=== PATIENT | female | born 1995 | race Caucasian/White ===

== ENCOUNTER 2020-01-01 13:34 | Emergency (ER) | payer OTHER ==
--- OUTSIDE RECORDS SUMMARY | 2020-01-01 14:15 | XMS REPORT | Summary of Care ---
:[address] [facility] Address [address] [place] [id number] Care Team Providers Name Role Phone Pcp, Patient Does Not Have A Primary Care Provider +1-000-00 0-0000 Reason for Visit Reason Comments ULTRASOUND (Routine) Status Reason Specialty Diagnoses / Referred By Referred To Procedures Contact Contact Closed Maternal Diagnoses Normal in third trimester 32 weeks gestation of Verito Castaneda MD Medicine Procedures CONSULT MATERNAL MEDICINE ULTRASOUND Preferred Location: [address] 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 0 A ctive calc,iron,folic ( VITAMIN ORAL) documented as of this encounter (statuses as of 10/18/2019) Active Problems Problem Noted Date Normal in second trimester 09/03/2019 History of loop electrical excision procedure (LEEP) 0 09/03/2019 32 weeks gestation of 09/03/2019 Estimated Date of Delivery Comments Yes 11/27/2019 Based on Patient Rep orted documented as of this encounter (statuses as of 10/18/2019) Immunizations Name Administration Dates Next Due TDAP 09/03/2019 09/02/2029 documented as of this encounter Social History Tobacco Use Types Packs/Day Years Used Date Former Smoker Quit: 09/03/19 15 Smokeless Tobacco: Never Used Alcohol Use Drinks/Week oz/Week Comments Not Currently Estimated Date of Delivery Comments Yes 11/27/2019 Based on Patient Rep orted Sex Assigned at Date Recorded Not on file COVID-19 Exposure Response Date Recorded In the last month, have you been in contact with No / Unsure 10/09/2019 9:12 AM CDT someone who was confirmed or suspected to have Coronavirus / COVID-19? documented as of this encounter Last Filed Vital Signs Not on filedocumented in this encounter Plan of Treatment Date Type Specialty Care Team Description 10/19/2019 Routine Obstetrics & Sherry Calderon, Visit Gynecology EB [address] [place] [phone] Health Maintenance Due Date Last Done Comments VARICELLA VACCINES (1 of 2 - 1997 2-dose childhood series) MENINGOCOCCAL B VACCINES (1 of 2 - 2006 Risk Bexsero 2-dose series) HPV VACCINES (1 - 2-dose series) 07/11/2007 Depression Screening 2008 CHLAMYDIA SCREENING 2012 PAP SMEAR 2017 INFLUENZA VACCINE (#1) 2019 12/13/2017 DTaP,Tdap,and Td Vaccines (2 - Td) 09/02/2029 09/03/2019 PNEUMOCOCCAL 0-64 YEARS COMBINED Aged Out No longer eligible based on SERIES patient's age to complete this topic documented as of this encounter Procedures Procedure Name Priority Date/Time Associated Diagnosis Comme nts SECOND AND THIRD Routine 10/18/2019 3:34 PM TRIMESTER ULTRASOUND CDT documented in this encounter Results SECOND AND THIRD TRIMESTER ULTRASOUND (10/18/2019 3:34 PM CDT) Specimen documented in this encounter Visit Diagnoses Diagnosis Supervision of high risk in se cond trimester Unspecified high-risk Encounter for screening for ma lformation using ultrasound documented in this encounter documented as of this encounter
--- OUTSIDE RECORDS SUMMARY | 2020-01-01 14:15 | XMS REPORT | Summary of Care ---
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 [facility] Sherry Calderon PA-C [address] [facility] [address] [place] [phone] Abnormal maternal Professional Office 2, [facility] Lab glucose tolerance, Building Phlebotomy [facility] Lab Professional Office Building [address] [facility] [address] [place] [phone] Allergies Active Allergy Reactions Severity Noted Date Comments Sulfa (Sulfonamide Antibiotics) Rash 0 documented as of this encounter (statuses as of 10/09/2019) Medications Medication Sig Dispensed Refills Start Date End Date Status vit Take by mouth. 0 A ctive calc,iron,folic ( VITAMIN ORAL) documented as of this encounter (statuses as of 10/09/2019) Active Problems Problem Noted Date Normal in second trimester 09/03/2019 History of loop electrical excision procedure (LEEP) 0 09/03/2019 32 weeks gestation of 09/03/2019 Estimated Date of Delivery Comments Yes 11/27/2019 Based on Patient Rep orted documented as of this encounter (statuses as of 10/09/2019) Immunizations Name Administration Dates Next Due TDAP [...] Signs Not on filedocumented in this encounter Nursing Notes Isela Huntley - 10/09/2019 8:45 AM CDT Venipuncture collection performed by clean technique on the both anticubitus. Total of 4 attempts were made. Slight pressure and a bandage/dressing were applied to the site(s). The patient experienced no complications. The following specimens were processed according to instructions and sent to [facility] laboratories per lab order on 10/09/19: LT BLUE SST 1 RED LAV PPT DK GREEN (LiHep) DK GREEN (SodH) PRIDE 3 DK BLUE (K2) DK BLUE (S) ACD Blood Culture NIPT/NTD documented in this encounter Plan of Treatment Date Type Specialty Care Team Description 10/19/2019 Routine Obstetrics & Sherry Calderon, Visit Gynecology EB [address] [place] [phone] Name Type Priority Associated Diagnoses Date/Ti me 3 HR GLUCOSE TOLERANCE LAB Routine Abnormal maternal 10/09/2019 9:17 AM CDT PANEL glucose tolerance, antepartum Name Type Priority Associated Diagnoses Order S chedule 2 HR GLUCOSE TOLERANCE LAB Routine Abnormal maternal glucose Ordered: 10/09/2019 TEST tolerance, antepartum 3 HR GLUCOSE TOLERANCE LAB Routine Abnormal maternal glucose Ordered: 10/09/2019 TEST tolerance, antepartum Health Maintenance Due Date Last Done Comments VARICELLA VACCINES (1 of 2 - 1997 2-dose childhood series) MENINGOCOCCAL B VACCINES (1 of - 2006 Risk Bexsero 2-dose series) HPV [...] Name Priority Date/Time Associated Diagnosis Comme nts 1 HR GLUCOSE Routine 10/09/2019 10:15 AM Abnormal maternal Res ults for this TOLERANCE TEST CDT glucose tolerance, procedu re are in antepartum the results section. GLUCOSE FASTING Routine 10/09/2019 9:17 AM Abnormal maternal Results for this CDT glucose tolerance, procedure are in antepartum the results section. documented in this encounter Results 1 HR GLUCOSE TOLERANCE TEST (10/09/2019 10:15 AM CDT) Pathologist Sig nature GLUC 1 HR 150 120 - 170 mg/dL [facility] Specimen Blood Performing Organization Address [facility] [place] Phone Number [facility] CLIA: [id number] [place] [address] GLUCOSE FASTING (10/09/2019 9:17 AM CDT) Pathologist Sig nature GLU FASTNG 78 70 - 110 mg/dL [facility] Specimen Blood Performing Organization Address [facility] [place] Phone Number [facility] CLIA: [id number] [place] [address] documented in this encounter Visit Diagnoses Diagnosis Abnormal maternal glucose tolerance, ant epartum documented in this encounter documented as of this encounter
--- OUTSIDE RECORDS SUMMARY | 2020-01-01 14:15 | XMS REPORT | Summary of Care ---
:1995 Author Organization [facility] Address [address] [place] [address] Care Team Providers Name Role Phone Pcp, Patient Does Not Have A Primary Care Provider +1-000-00 0-0000 Reason for Referral (Routine) Status Reason Specialty Diagnoses / Referred By Referred To Procedures Contact Contact New Request Maternal Diagnoses Normal in third trimester 32 weeks gestation of Verito Castaneda, Medicine Procedures CONSULT MATERNAL MEDICINE ULTRASOUND Preferred Location: Angela PLATT [address] [place] [address] [address] Reason for Visit Reason Comments ROUTINE VISIT Encounter Details Date Type Department Care Team Description 10/02/2019 Routine [facility] Women's Verito Castaneda am, MD Normal in third trimester (Marita sofi Dx); Visit Healthcare- [address] [place] [address] 32 weeks g estation of Angela Juares [facility] [address] [place] [phone] Allergies Active Allergy Reactions Severity Noted Date Comments Sulfa (Sulfonamide Antibiotics) Rash 0 documented as of this encounter (statuses as of 10/04/2019) Medications Medication Sig Dispensed Refills Start Date End Date Status vit Take by mouth. 0 A ctive calc,iron,folic ( VITAMIN ORAL) documented as of this encounter (statuses as of 10/04/2019) Active Problems Problem Noted Date Normal in second trimester 09/03/2019 History of loop electrical excision procedure (LEEP) 0 09/03/2019 32 weeks gestation of 09/03/2019 Estimated Date of Delivery Comments Yes 11/27/2019 Based on Patient Rep orted documented as of this encounter (statuses as of 10/04/2019) Immunizations Name Administration Dates Next Due TDAP [...] been in contact with No / Unsure 10/02/2019 1:02 PM CDT someone who was confirmed or suspected to have Coronavirus / COVID-19? documented as of this encounter Last Filed Vital Signs Vital Sign Reading Time Taken Comments Blood Pressure 95/67 10/02/2019 1:18 PM CDT Pulse 89 10/02/2019 1:18 PM CDT Temperature 36.8 C (98.2 F) 10/02/2019 1:18 PM CDT Respiratory Rate 18 10/02/2019 1:18 PM CDT Oxygen Saturation - - Inhaled Oxygen Concentration - - Weight 64.9 kg (143 lb) 10/02/2019 1:18 PM CDT Height 160 cm (5' 3") 10/02/2019 1:18 PM CDT Body Mass Index 25.33 10/02/2019 1:18 PM CDT documented in this encounter Progress Notes Verito Castaneda MD - 10/02/2019 1:15 PM CDT Chief complaint: Chief Complaint Patient presents with ROUTINE VISIT HPI Isela Ram is a 24 year old female @ 32w2d Denies contractions, vaginal bleeding, LOF, dysuria, or PIH symptoms. + active FM. Histories OB History Para Term AB Living 2 1 1 1 SAB TAB Ectopic Multiple Live Births 1 # Outcome Date GA Lbr Neal/2nd Weight Sex Delivery Anes PTL Lv 2 Current 1 Term 05/16/18 40w6d 7 lb 14 oz (3.572 kg) F NORMAL SPONT EPI N GIANCARLO Past Medical History: Diagnosis Date History of loop electrical excision procedure (LEEP) 06/2018 History of ovarian cyst Hypoglycemia Pap smear abnormality of cervix 2019 hx of 2019 ; Colpo with LEEP Family History Problem Relation Age of Onset Hypertension Father Diabetes Father Arthritis NoFHx Asthma NoFHx defects NoFHx Breast Cancer NoFHx Colon Cancer NoFHx Ovarian Cancer NoFHx Uterine Cancer NoFHx Cancer NoFHx Depression NoFHx Genetic NoFHx Heart NoFHx High cholesterol NoFHx Mental retardation NoFHx Neurological NoFHx Osteoporosis NoFHx Psychiatry NoFHx Other - see comments NoFHx Family Status Relation Name Status Mo Alive Fa Alive NoFHx (Not Specified) Past Surgical History: Procedure Laterality Date COLPOSCOPY,CERVIX W/ADJ VAG,W/LOOP BX 06/2018 OVARIAN CYSTECTOMY 2012 TOOTH EXTRACTION 2019 wisdom teeth Social History Socioeconomic History Marital status: Spouse name: Not on file Number of children: Not on file Years of education: Not on file Highest education level: Not on file 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 Social Needs Financial resource strain: Not on file Food insecurity Worry: Not on file Inability: Not on file Transportation needs Medical: Not on file Non-medical: Not on file Tobacco Use Smoking status: Former Smoker Quit date: 09/02/2014 Years since quittin.0 Smokeless tobacco: Never Used Substance and Sexual Activity Alcohol use: Not Currently Drug use: Never Comment: No history of substence abuse of any kind Sexual activity: Yes Partners: Male control/protection: None Lifestyle Physical activity Days per week: Not on file Minutes per session: Not on file Stress: Not on file Relationships Social connections Talks on phone: Not on file Gets together: Not on file Attends christianity service: Not on file Active member of club or organization: Not on file Attends meetings of clubs or organizations: Not on file Relationship status: Not on file Intimate partner violence Fear of current or ex partner: Not on file Emotionally abused: Not on file Physically abused: Not on file Forced sexual activity: Not on file Other Topics Concern Not on file Social History Narrative No domestic or physical violence within the home Living with Sister; her is currently deployed in [place] Social History Substance and Sexual Activity Sexual Activity Yes Partners: Male control/protection: None Labs No new labs Radiology No new radiology. Allergies Isela is allergic to sulfa (sulfonamide antibiotics). Medications Isela has a current medication list which includes the following prescription(s): vit calc,iron,folic. Review of Systems Constitutional: Negative for chills, fatigue and fever. HENT: Negative for congestion, rhinorrhea, sneezing and sore throat. Eyes: Negative for photophobia and visual disturbance. Respiratory: Negative for cough, chest tightness, shortness of breath and wheezing. Cardiovascular: Negative for chest pain and palpitations. Gastrointestinal: Negative for abdominal distention, abdominal pain, constipation, diarrhea, nausea and vomiting. Genitourinary: Negative for dysuria, urgency, frequency, vaginal bleeding and vaginal discharge. Skin: Negative for rash. Neurological: Negative for syncope and headaches. Hematological: Does not bruise/bleed easily. BP 95/67 (BP Location: Left arm, Patient Position: Sitting, BP CUFF SIZE: Adult Medium) | Pulse 89| Temp 36.8 C (98.2 F) (Oral) | Resp 18 | Ht 5' 3" (1.6 m) | Wt 143 lb (64.9 kg) | LMP 02/28/2019 | BMI 25.33 kg/m Pregravid BMI: 22.33 Physical Exam Vitals reviewed. Constitutional: She is oriented to person, place, and time. She appears well- developed and well-nourished. Cardiovascular: Regular rate and rhythm. Pulmonary/Chest: Normal inspiratory effort. Abdominal: Abdomen is soft. No tenderness present. No hernia palpated or inspected. Neuro/Psychiatric: She has a normal mood and affect. She is oriented to person, place, and time. Skin: Skin normal. No rash present. Assessment/Plan See OB Summary Return to clinic in 2 weeks. Reviewed patient instructions and provided printed copy. Activity restrictions: As tolerated at 32w0d This visit did not involve counseling and coordination that comprised more than 50% of the visit time. Verito Castaneda MD 10/04/2019 1:04 PM documented in this encounter Miscellaneous Notes OB Summary Note - Verito Castaneda MD - 10/02/2019 1:15 PM CDTAge: 24 year old GA: 32w0d - Doing well - 1 hr abnormal: 3 hr gtt ordered - records reviewed and VIC 11/27/2019 - USG done on 2019: Single live intrauterine gestation at 20 w0d by maged EDD11/27/2019. The outflow tracts and diaphragm were not seen well. Other anatomy appeared normal. --> follow-up USG ordered - Desires elective induction at 39 wks Discussed about risks of failed induction that can lead to and risks associated with including pain, bleeding, infection, injury to surrounding organs, need for repeat with future pregnancies, risks of abnormal placentation with future pregnancies. Patient understands and desires to proceed with induction. Patient has been scheduled for induction on 11/22/2019 at 39 weeks unless clinically indicated otherwise. 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
--- OUTSIDE RECORDS SUMMARY | 2020-01-01 14:15 | XMS REPORT | Summary of Care ---
:1995 Author Organization [facility] - Health Address [address] [place] [address] Care Team Providers Name Role Phone Pcp, Patient Does Not Have A Primary Care Provider +1-000-00 0-0000 Encounter Details Date Type Department Care Team Description 11/02/2019 Orders Only [facility] Doctor Unassigned, No [address] [facility] [place] [address] [address] [place] [address] Allergies Active Allergy Reactions Severity Noted Date Comments Sulfa (Sulfonamide Antibiotics) Rash 0 documented as of this encounter (statuses as of 11/06/2019) Medications Medication Sig Dispensed Refills Start Date End Date Status vit Take by mouth. 0 A ctive calc,iron,folic ( VITAMIN ORAL) documented as of this encounter (statuses as of 11/06/2019) Active Problems Problem Noted Date Normal in third trimester 09/03/2019 History of loop electrical excision procedure (LEEP) 0 09/03/2019 36 weeks gestation of 09/03/2019 Estimated Date of Delivery Comments Yes 11/27/2019 Based on Patient Rep orted documented as of this encounter (statuses as of 11/06/2019) Immunizations Name Administration Dates Next Due TDAP [...] been in contact with No / Unsure 11/02/2019 3:46 PM CDT someone who was confirmed or suspected to have Coronavirus / COVID-19? 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 Phlebotomy 2, Ad[facility] Lab 11/08/2019 Routine Visit Obstetrics & Sherry Calderon, Gynecology EB Juares [address] [phone] Health Maintenance Due Date Last Done Comments VARICELLA VACCINES (1 of 2 - 1997 2-dose childhood series) MENINGOCOCCAL B VACCINES (1 of 2 - 2006 Risk Bexsero 2-dose series) HPV VACCINES (1 - 2-dose series) 07/11/2007 Depression Screening 2008 PAP SMEAR 2017 INFLUENZA VACCINE (#1) 2019 12/13/2017 CHLAMYDIA SCREENING 11/01/2020 11/02/2019 DTaP,Tdap,and Td Vaccines (2 - Td) 09/02/2029 09/03/2019 PNEUMOCOCCAL 0-64 YEARS COMBINED Aged Out No longer eligible based on SERIES patient's age to complete this topic documented as of this encounter Procedures Procedure Name Priority Date/Time Associated Diagnosis Comme nts DSU PRE-OP Routine 11/02/2019 12:01 AM CDT documented in this encounter Results Not on filedocumented in this encounter Insurance Payer Benefit Plan / Group Subscriber ID Effective Dates Phone Address Type [facility] [id number] 2019-Present documented as of this encounter
--- OUTSIDE RECORDS SUMMARY | 2020-01-01 14:15 | XMS REPORT | Summary of Care ---
:1995 Author Organization [facility] Address [address] [place] [id number] Care Team Providers Name Role Phone Pcp, Patient Does Not Have A Primary Care Provider +[id number] 0-0000 Reason for Visit Reason Comments ROUTINE VISIT Encounter Details Date Type Department Care Team Description 10/19/2019 Routine [facility] Women's Sherry Calderon, Normal in third trimester (Primary Dx); Visit Healthcare- PA-C 34 weeks gestation of ; [address] Malodorous urine [address] [facility], [address] [place] [id number] [phone] Allergies Active Allergy Reactions Severity Noted Date Comments Sulfa (Sulfonamide Antibiotics) Rash 0 documented as of this encounter (statuses as of 10/19/2019) Medications Medication Sig Dispensed Refills Start Date End Date Status vit Take by mouth. 0 A ctive calc,iron,folic ( VITAMIN ORAL) documented as of this encounter (statuses as of 10/19/2019) Active Problems Problem Noted Date Normal in second trimester 09/03/2019 History of loop electrical excision procedure (LEEP) 0 09/03/2019 32 weeks gestation of 09/03/2019 Estimated Date of Delivery Comments Yes 11/27/2019 Based on Patient Rep orted documented as of this encounter (statuses as of 10/19/2019) Immunizations Name Administration Dates Next Due TDAP [...] been in contact with No / Unsure 10/19/2019 12:45 PM CDT someone who was confirmed or suspected to have Coronavirus / COVID-19? documented as of this encounter Last Filed Vital Signs Vital Sign Reading Time Taken Comments Blood Pressure 108/69 10/19/2019 1:20 PM CDT Pulse 87 10/19/2019 1:20 PM CDT Temperature 36.6 C (97.8 F) 10/19/2019 1:20 PM CDT Respiratory Rate 18 10/19/2019 1:20 PM CDT Oxygen Saturation - - Inhaled Oxygen Concentration - - Weight 66 kg (145 lb 6.4 oz) 10/19/2019 1:20 PM CDT Height 160 cm (5' 3") 10/19/2019 1:20 PM CDT Body Mass Index 25.76 10/19/2019 1:20 PM CDT documented in this encounter Patient Instructions Patient InstructionsMoraima Da Silva RN - 10/19/2019 4:30 PM CDT Patient Education Premature Labor Premature labor ( labor) is when symptoms of labor occur before 37 weeks of . (This is 3 weeks before your due date.) Premature labor can lead to premature delivery. This means giving to your baby early. Babies need at least 37 weeks of for all the organs to develop normally. The earlier the delivery, the greater the risks to the baby. In most cases, the cause of premature labor is unknown. But certain factors may make the problem more likely. These include: History of premature labor with other pregnancies Smoking Alcohol or substance abuse Low pre- weight or weight gain during Short time period between pregnancies Being with twins, triplets, or more History of certain types of surgery on the cervix or uterus Having a short cervix Certain infections There are a number of other risk factors. Ask your healthcare provider to help you understand the risk factors specific to your case. Then find out what you can do to control or reduce them. Contractions are one of the main signs of premature labor. A contraction is different from cramping.It may feel painful and the belly (abdomen) may get hard. It can last from a few seconds to a few minutes. Some women may feel only a sense of pressure in the belly, thighs, rectum, or vagina. Some mayfeel only the hardening of the uterus without pain or pressure. Or there may be a constant pain in the lower back, which spreads forward toward the belly.Premature labor is often treated with medicines.A hospital stay may be needed. If labor doesn't progress and you and your baby are both healthy, you may be discharged to continue care at home. Home care Ask your provider any questions you have. Be certain you understand how to care for yourself at home. Also follow all recommendations given by your healthcare providers. Learn the signs of premature labor.Watch for these signs when you get home. Limit or restrict activities as advised. This may include stopping certain physical activities and cutting back hours at work. Avoid doing strenuous work as directed by your provider.Ask family and friends for help with tasks and support at home, if needed. Dont smoke, drink alcohol, or use other harmful substances. Take steps to reduce stress. Report any unusual symptoms to your provider. Follow-up care Follow up with your healthcare provider, or as directed.Weekly visits with your provider may be needed. When to seek medical advice Call your healthcare provider right away if any of these occur: Regular or frequent contractions, whether they are painful or not Pressure in the pelvis Pressure in the lower belly or mild cramping in your belly with or without diarrhea Constant low, dull backache Gush or slow leaking of water from your vagina Change in vaginal discharge (watery, mucus, or bloody) Any vaginal bleeding Decreased movement of your baby [employer] last reviewed this educational content on 07/29/201719998884-8764 [employer]. [address] [place] [address], [place] [address]. All rights reserved. This information is not intended as a substitute for professional medical care. Always follow your healthcare professional's instructions. Patient Education FAQs How often should I nurse? Feed your whenever he or she show signs of hunger. A general guideline is to nurse around 8 to 12 times every 24 hours, or about every 2 to 3 hours. With time and patience, every mother-baby pair will develop their own schedule and feeding pattern. How many months should I nurse? TheAmerican College of Obstetricians and Gynecologists and theMad[facility] Avenue Hospitalan Academy of Pediatrics both recommend that mothers start as soon as possible after . Both support -only for the first 6 months of life. At 6 months, your baby may slowly start having solid foods as well. But continue at least through the babys first birthday. After the first birthday, you and your baby can stop or continue as long as you want it to happen. Is my baby getting enough milk? There are a few ways to check if your baby is getting enough milk. Latching on You know your baby is getting milk if you hear gulping and swallowing sounds, not just sucking. Lookfor your baby steadily moving his or her jaw open and closed as another sign of proper latching on. Urine output and stool frequency You can also tell how much milk your baby is getting by keeping track of your babys diapers.By the end of the first week of life: Your baby shouldhave about 1 wet diaper on day 1, and 2 wet diapers on day 2. This should increase each day by 1 more wet diaper, up to 6 wet diapers on day 6 and then about 6 wet diapers every day.The urine will be a pale yellow color, not dark yellow or orange. Wet diapers should stay around this amount as your breastfed baby gets older. Your baby should have 3 or 4 stools per day. It is not uncommon for a breastfed baby to pass stool after each feeding. In the second to fourth weekof life,the number of stools can increase to about 5 per day. After 1 month, the number of stools usually lessens. It might be 1 or 2 a day.Some ba bies may have a day or days with no stool. In these cases, stool should be in larger amounts when itis passed. Weight Its normal for your baby to lose some weightduring the first 3 to 4 days of life. A baby might lose up to 7% of his or her weight during this time.Then your baby should start gaining again. By the end of the second week, he or she will back to weight. Does my baby needvitamins? All breastfed infants should get vitamin D supplements. Your babys healthcare provider will prescribe them. This may be at least 400 international units (IU) a day. Your baby usually will not need any other supplements.When your baby is 6 months old, you may start to offer baby foods that containiron. What should I do if my breasts becomeswollen, tender, or sore? These symptomsare most often because your breasts are too full of milk (engorged). You are making more milk than your baby is drinking. This may cause pain and make it harder for your baby to nurse. If this happens, try the following: Keep nursing. This is a temporary condition. It gets better once youcan get your baby to drink more milk.Be sure to breastfeed more often and let your baby feed until he or she is finished. Express some milk before you breastfeed. Do this manually or with a breast pump. This will softenthe darker area around the nipple (areola) so your baby can latch deeper to begin feeding. Use a warm compress. This can be a towelor paper diapersoaked in warm water. Or take a warm shower before feeding.Some women have found that switching off between a cold compress and a warm one gives them relief. If you feel comfortable with this, you can try it too. If you use an ice pack, wrap it in a thin towel to protect your skin. Take acetaminophenfor continued pain. The medicine is safe to take every now and then during . If your nipples or breasts continue to hurt, call your healthcare provider. Nipple and breast problems need to be looked at and treated as soon as possible. But dont get discouraged and stop nursing. When to seek medical advice Unless your babys healthcare provider advises otherwise, call the provider right away if your baby has any of the following: Fever (see Fever and children, below) Repeated vomiting Does not appear to be alert, refuses to nurse, or is sleeping too much, such as through feedings Has signs of dehydration. These include fewer wet diapers than normalor no urine for 8 hours, or theurine appears dark. Or your baby has no tears when crying, sunken eyes, or dry mouth. Is not gaining weight or losing weight Call your own healthcare provider right away if you: Have a fever of 100.4F (38C) or higher, or as directed by your provider Have redness,warmth,pain,or unusual discharge from your breasts Have such painful nipples and breasts that you want to stop nursing Have a hard lump in your breast Have lower belly (abdominal) pain or crampingwhen you are not Have pain or burning when you pass urine Have unexpected vaginal bleeding or foul-smelling discharge Fever and children Always use a digital thermometer to check your lizandro temperature. Never use a mercury thermometer. For infants and toddlers, be sure to use a rectal thermometer correctly. A rectal thermometer may accidentally poke a hole in (perforate) the rectum. It may also pass on germs from the stool. Always follow the product makers directions for proper use. If you dont feel comfortable taking a rectal temperature, use another method. When you talk to your lizandro healthcare provider, tell him or her which method you used to take your lizandro temperature. Here are guidelines for fever temperature. Ear temperatures arent accurate before 6 months of age. Dont take an oral temperature until your child is at least 4 years old. under 3 months old: Ask your lizandro healthcare provider how you should take the temperature. Rectal or forehead (temporal artery) temperature of 100.4F (38C) or higher, or as directed bythe provider Armpit temperature of 99F (37.2C) or higher, or as directed by the provider [employer] last reviewed this educational content on 04/28/201619995953-8496 [employer]. [address] [place] [address]. All rights reserved. This information is not intended as a substitute for professional medical care. Always follow your healthcare professional's instructions. Patient Education Adapting to : Third Trimester Although common during , some discomforts may seem worse in the final weeks. Simple lifestyle changes can help. Take care of yourself. And ask your partner to help out with small tasks. Limiting leg problems Ways to combat leg issues: Wear support hose all day. Avoid snug shoes and clothes that bind, like tight pants and socks with elastic tops. Sit with your feet and legs raised often. Caring for your breasts Tips to follow include: Wash with plain water. Avoid using harsh soaps or rubbing alcohol. They may cause dryness. Wear a nursing bra for extra support. It can also hide any leaks from your nipples. Controlling hemorrhoids Ways to avoid hemorrhoids include: Eat foods that are high in fiber. Also, exercise and drink enough fluids. This will reduce constipation and hemorrhoids. Sleep and nap on your side. This limits pressure on the veinsof your rectum. Try not to stand or sit for long periods. Controlling back pain As your body changes during , your back must work in new ways. Back pain is due to many causes. Physical changes in your body can strain your back and its supporting muscles. Also, hormones (chemicals that carry messages throughout the body) increase during . This can affect howyour muscles and joints work together. All of these changes can lead to pain. Pain may be felt in the upper or lower back. Pain is also common in the pelvis. Some women have sciatica. This is paincaused by pressure on the sciatic nerve running down the back of the leg. Ask your healthcare provider for specific tips and exercises to help control your back pain. Tips to help you rest Good rest and sleep will help you feel better. Here are some ideas: Ask your partner to massage your shoulders, neck, or back. Limit the errands you do each day. Lie down in the afternoon or after work for a few minutes. Take a warm bath before you go to sleep. Drink warm milk or teas without caffeine. Avoid coffee, black tea, and cola. Stopping heartburn Avoid spicy, greasy, fried,or acidic foods. Eat small amounts more often. Eat slowly. Wait 2 hours after eating before lying down. Sleep with your upper body raised 6 inches. Managing mood swings Ways to manage mood swings include: Know that mood changes are normal. Exercise often, but get plenty of rest. Address any concerns and limit stress. Talking to your partner, other women, or your healthcare provider may help. Dealing with urinary frequency Tips to deal with having to urinate often include: Drink plenty of water all day. If you drink a lot in the evening, though, you may have to get up more in the night. Limit coffee, black tea, and cola. [employer] last reviewed this educational content on 03/31/201719994966-2095 [employer]. [address] [place] [address], [place] [address]. All rights reserved. This information is not intended as a substitute for professional medical care. Always follow your healthcare professional's instructions. Patient Education Kick Counts Its normal to worry about your babys health. One way you can knowyour babys doing well isto record the babys movements once a day. This is called a kick count.Remember to take your kick count records to all your appointments with your healthcare provider. How to count kicks Time how long it takes you to feel 10 kicks, flutters, swishes, or rolls. Ideally, you want to feel at least 10 movements within 2 hours. You will likely feel 10 movements in less time than that. Starting at 28 weeks, count your baby's movements daily. Follow your healthcare provider's instructions for kick counting. Here are tips for counting kicks: Choose a time when the baby is active, such as after a meal. Sit comfortably or lie on your side. The first time the baby moves,write downthe time. Count each movement until the baby has [id number]. This can take from 20 minutes to 2hours. If you have not felt 10 kicks by the end of the second hour, wait a few hours. Then try again. Try to do it at the same time each day. When to call your healthcare provider Call your healthcare providerright awayif: You do a couple sets of kick counts during the day and your baby moves fewer than 10times [id number] Your baby moves much less often than on thedays before. You have not felt your baby move all day. [employer] last reviewed this educational content on 01/28/201719997307-1633 [employer]. [address] [place], [place] [id number]. All rights reserved. This information is not intended as a substitute for professional medical care. Always follow your healthcare professional's instructions. Patient Education Labor and Childbirth: Active Labor During active labor, your contractions will be stronger and more rhythmic than with early labor. They peak and subside like waves. They may happen2 to3 minutes apart and last about 45 to 60 seconds. This part of labor can be hard work. But it is often shorter than early labor. When you reach active labor, exams and tests will be done to see how you and your baby are doing. Your cervix may dilate 4 to 8 centimeters during the first part of active labor. Evaluating you and your baby An exam tells how you and your baby are responding to contractions. Your blood pressure, temperature, and pulse will be checked. A blood or urine sample may also be taken. A monitor will be used to check your babys heart rate. Sometimes an IV (intravenous) line is started to give you medicineand fluids. Moving ahead with labor You may now feel contractions inyour whole stomach instead of just the lower part (like during early labor). If your amniotic sac has not broken already, it may break now. Or, it may be broken for you. To help your baby descend, change position often. Walking or sitting in a rocking chair or recliner may help. You may find it hard to relax even though you are tired. You may also be less interested in talking than you were earlier. If youre having anesthesia, you will get it now. Special issues during labor If labor doesnt progress well or a problem arises, you may need a .But your healthcare providers maytake certain steps to help you avoid a : If your cervix isnt dilating, a medicine (oxytocin)may be used to augment labor. If monitoring shows your baby isnt getting enough oxygen, shifting your body position may help. You may also be given oxygen through a mask. If you have preeclampsia (a condition that results in high blood pressure, swelling, and other symptoms), you may be given medicines by IV (intravenous). Your healthcare provider may also tell you to lie on your left side. Responding to contractions During contractions, try to stay relaxed. Tense muscles use more oxygen, eat up your bodys energy, and increase pain. Use the breathing and relaxation techniques you may have learned. And let your support person know how he or she can help. If youve had problems during a previous , focus onthe present. Keep in mind that no 2 births are the same. Support persons note Here's how you can help: Have the mother walk or change positions at least once an hour. This improves circulation and helps the baby descend. Keep reminding the mother to breathe and relax through each contraction. Reassure her. Try to keep her from getting anxious or overstressed. Take care of yourself. Take a short break to eat or go to the bathroom when you need to. Rest when the mother does. Youll both benefit. [employer] last reviewed this educational content on 03/31/201719991130-4166 [employer]. [address] [place] [address], [place] [address]. All rights reserved. This information is not intended as a substitute for professional medical care. Always follow your healthcare professional's instructions. Patient Education Labor and Childbirth: Your Body Prepares Labor is the series of uterine contractions that dilate (open) and efface (thin) your cervix for . Your due date is a guide to when labor will begin, but babies often come days or weeks before or after due dates. Even so, labor need not take you by surprise. In the last weeks of , you oryour healthcare provider may notice changes that mean labor is near. Changes in your body Physical changes often signal that your baby will soon be born: Discharge from your vagina may increase and become thicker. You may notice a pink or brownish discharge called the bloody show. The mucous plug may break down over a few weeks or all at once. Losing the plug doesnt mean that labor will start right away. You may feel Ángel Olmos contractions (false labor). These irregular contractions start to soften and thin the cervix. Many women mistake these contractions for true labor. They may be morenoticeabletowards the end of the day. Feeling like the baby has dropped lower. In preparation for , the baby's head has settled deep into your pelvis. [employer] last reviewed this educational content on 03/31/201719998502-9015 [employer]. [address] [place] [address], [place] [address]. All rights reserved. This information is not intended as a substitute for professional medical care. Always follow your healthcare professional's instructions. Patient Education Labor Induction Labor induction is a way to help get your labor started. This can protect your health and your babys, too. Ways to induce labor Your healthcare provider can get your labor started by using any of 3 methods or a combination of them. Here are some common treatments: Prostaglandin.A medicine that may be given as a pill, capsule, or vaginal suppository. It softens,thins, and opens the cervix. This is called cervical ripening. Your healthcare provider may also usea Couch catheter or a double balloon catheter. Your healthcare provider inserts the catheter intoyour cervix to mechanically dilate it and cause the release of natural prostaglandins. Pitocin (oxytocin). A medicine your healthcare provider gives youthrough an IV (intravenous) line.You may get it within 4 to 24 hours after your healthcare provider gives you prostaglandin. Pitocin helps start contractions. Its always given in the hospital. Rupturing the membrane. A procedure in which your healthcare provideruses a small tool to break your bag of water. Healthcare providers perform this proceduremore often in women who have given before. And its always done in the hospital. This procedure needs the cervix to be dilated enough to allow the procedure and the baby's head to be down, close to the cervix. Reasons for inducing labor There are reasons that your healthcare provider will decide to induce labor, including the following: When the health of the mother or fetus is at risk by continuing the . These conditions include preeclampsia, poor growth, low amniotic fluid, infection of the membranes (chorioamnionitis), ruptured bag of water, and certain diseases,likediabetes. Elective after 39 weeks for nonmedical reasons likeliving far from the hospital What to expect Prostaglandin may be given in the hospital. monitoring is needed after placement. Other methods of inducing labor are done in the hospital. Youll need to stay there until you give . Your healthcare provider may attach monitors to your belly to measure contractions and help make sure yourbaby has no problems. No matter how your healthcare provider induces labor, afew factors may affect how long it takes you to give . These include how long it takes for your cervix to thin and open, and when contractions begin. Give yourself time Even though inducing labor gets the process started, you still may need to wait. Mothers who have labor induced most often give within a day or so. But it can take as long as a few days to give . With labor induction, you may have a greater chance of: A section (surgical delivery) An infection A longer hospital stay Uterine rupture, although rare , although extremely rare [employer] last reviewed this educational content on 11/28/201619996844-7701 [employer]. [address] [place] [address]. All rights reserved. This information is not intended as a substitute for professional medical care. Always follow your healthcare professional's instructions. Patient Education Anesthesia Options for Labor Anesthesia is a type of medicine to prevent pain. It is often used in labor. It may numb only one region of your body. This is called regional anesthesia. Or it may let you sleep during surgery. This is called general anesthesia. Only a trained specialist gives this type of medicine. When possible, your healthcare provider will use regional anesthesia. This is so you can be awake during your babysbirth. The type of anesthetic you have may depend on the hospital guidelines. Regional anesthesia Your healthcare providermay use regional anesthesia to numb your lower body for a vaginal or . It does not go into your bloodstream. This means that little or none of it will reach yourbaby. There are two kinds: Epidural. This is most often given while you sit up or lie on your side. A needle with a flexibletube (catheter) is put into your lower back. The needle is then removed. The anesthetic is sent through the catheter. A pump may be attached. This gives you a constant level of anesthetic. An epidural often affects only part of your muscle control. This means you should still be able to push for a vaginal . Spinal. This is most often given in one dose right before delivery.Your healthcare provider mayuse it for a . It acts fast. You may sit up or lie down when it is injected. It may affect muscle control in your lower body. This includesyour ability to push. General anesthesia General anesthesia lets you sleep and keeps you freefrom pain during surgery. It is most often used for an emergency .Your healthcare providermay use itfor a . He sam may give it to you as an injection,as an inhaled gas, oras both. Delivery often happens before the medicine has reached the baby. [employer] last reviewed this educational content on 11/28/201619995699-8381 [employer]. [address] [place] [address]. All rights reserved. This information is not intended as a substitute for professional medical care. Always follow your healthcare professional's instructions. Patient Education Recognizing Labor The beginning of labor is the beginning of . Youll start to feel strong contractions. Thats when the muscles of your uterus tighten up to help push your baby out during . Yes, labor has probably started Signs of labor include: Your contractions are getting stronger and more painful instead of weaker. Youll probably feelthem throughout your whole uterus. Your contractions are regular. This means that you feel them about every 5 to 10 minutes. And they are getting closer together. You have pink-colored or blood-streaked fluid from your vagina. You feel that the baby has "dropped" lower in your pelvis Your water breaks. It may be a gush or a slow trickle of clear fluid from your vagina. No, its probably not real labor Signs of false labor include: Your contractions arent regular or strong. You feel the contractions only in your lower uterus. Your contractions go away when you walk or change position. Your contractions go away after drinking fluids. When to call your healthcare provider Call your healthcare provider or clinic right away if you notice any of these signs: Fluid from your vagina, with or without contractions. Bleeding heavy enough that you need a sanitary pad. You dont feel your baby moving as much as before. NOTE: Contractions are timed by both of these measures: The length of each contraction from its start to its finish. How far apart the contractions arethe time between the start of one contraction and the start of the next contraction. [employer] reviewed this educational content on 11/28/201619991856-6635 [employer]. [address] [place] [address]. All rights reserved. This information is not intended as a substitute for professional medical care. Always follow your healthcare professional's instructions. Patient Education Stages of Labor Labor has 3 stages. Your healthcare provider may talk about the progress of your labor with certain words. One of these is your babys position. Another is your babysstation. And the effacement and dilation of your cervix will be noted. Read below to learn about these terms and the 3 stages of labor. Your baby moves into position Position is your babys placement inyour uterus. Your baby may be facing left or right. He or she may be head first or feet first. Station refers to how far your baby has moved down intoyour pelvic cavity. First stage of labor During the first stage of labor, contractions of the uterus help your cervix thin (efface). They also help it widen (dilate). This will help your baby pass through the canal (vagina). At first your contractions will not come that often or last that long. But as time passes, they will come more often, they may be more painful, and they will last longer. They will last about 30 to 60 seconds each. The first stage of labor lasts until the cervix is fully dilated. Second stage of labor When your cervix is fully dilated, the second stage of labor begins. In this stage, you will have stronger contractions of your uterus that will help your baby move down the canal. They may happen every 2 to 5minutes. They may last from 45 to 90 seconds each. Your healthcare provider will ask you to push with each contraction. Try to rest between the contractions if you can. Your baby is delivered at the end of this stage of labor. Third stage of labor The third stage of labor comes after your baby is born. This is when the afterbirth (placenta) comesout ofyour uterus. Your uterus will continue tocontract. But the contractionsare much milder than before. [employer] last reviewed this educational content on 11/28/201619993474-8674 [employer]. [address] [place] [address]. All rights reserved. This information is not intended as a substitute for professional medical care. Always follow your healthcare professional's instructions. Patient Education Managing Labor Pain Without Medicine There are many ways to manage pain during labor. It can often be done with no anesthesia or strong pain medicines. Talk to your healthcare provider about any choices you would like to explore. Help from relaxation Some of these are learned in special classes. Your healthcare provider can help you find classes. The hospital or center may have a tub or shower you can use during early labor. These methods maybe of help to you: Breathing techniques A warm tub or shower between contractions Massage and therapeutic touch by your support person or labor head wrestling coach Reading materials that are comforting or inspiring Music that is soothing Hypnosis Acupuncture and acupressure Heat and cold application Aromatherapy ball Non-pharmacologic treatment Injections of sterile water by your healthcare provider cangive you temporary pain relief when injected in the back. If you need medicine You may plan to use little or no medicine. But you may change your mind during labor. You can ask for medicine at any time if you need it. [employer] last reviewed this educational content on 03/31/201719995666-2276 [employer]. [address] [place] [address]. All rights reserved. This information is not intended as a substitute for professional medical care. Always follow your healthcare professional's instructions. Patient Education and Childbirth: What to Bring to the Hospital Youre likely feeling anxious as your lizandro approaches. This is normal. To give yourselfsome peace of mind, pack a bag ahead of time. Do this about one month ahead of your estimated delivery date. Here is a list of things to remember: Personal care items, like a toothbrush, hair brush, lip balm, lotion, and shampoo Eyeglasses (if you wear them) Nightgown (if you plan to breastfeed, pack one that allows for nursing) Nursing bra if you plan to breastfeed Bathrobe and slippers Many hospitals provide maternity underwear, but you may want to bring underwear that can be soiled because you will have bleeding after delivery Comfortable clothes for you to wear home, like sweat pants, yoga pants, or other stretchable clothes, because your prepregnancy clothes may not fit after delivery of your baby Clothes for your baby to wear home Personal music player and headphones Camera with new batteries or ribbon hanking machine operator Coins for vending machines Telephone numbers of people to call after the Cell phone and ribbon hanking machine operator Insurance information and any other paperwork needed for your hospital stay A list of baby names you are considering An infant, rear-facing car seat for bringing home your baby (this is required by law) Add anything else that you dont want to forget: Hi last reviewed this educational content on 01/28/201719996909-9754 [employer]. [address] [place] [address]. All rights reserved. This information is not intended as a substitute for professional medical care. Always follow your healthcare professional's instructions. Patient Education Premature Labor Premature labor ( labor) is when symptoms of labor occur before 37 weeks of . (This is 3 weeks before your due date.) Premature labor can lead to premature delivery. This means giving to your baby early. Babies need at least 37 weeks of for all the organs to develop normally. The earlier the delivery, the greater the risks to the baby. In most cases, the cause of premature labor is unknown. But certain factors may make the problem more likely. These include: History of premature labor with other pregnancies Smoking Alcohol or substance abuse Low pre- weight or weight gain during Short time period between pregnancies Being with twins, triplets, or more History of certain types of surgery on the cervix or uterus Having a short cervix Certain infections There are a number of other risk factors. Ask your healthcare provider to help you understand the risk factors specific to your case. Then find out what you can do to control or reduce them. Contractions are one of the main signs of premature labor. A contraction is different from cramping.It may feel painful and the belly (abdomen) may get hard. It can last from a few seconds to a few minutes. Some women may feel only a sense of pressure in the belly, thighs, rectum, or vagina. Some mayfeel only the hardening of the uterus without pain or pressure. Or there may be a constant pain in the lower back, which spreads forward toward the belly.Premature labor is often treated with medicines.A hospital stay may be needed. If labor doesn't progress and you and your baby are both healthy, you may be discharged to continue care at home. Home care Ask your provider any questions you have. Be certain you understand how to care for yourself at home. Also follow all recommendations given by your healthcare providers. Learn the signs of premature labor.Watch for these signs when you get home. Limit or restrict activities as advised. This may include stopping certain physical activities and cutting back hours at work. Avoid doing strenuous work as directed by your provider.Ask family and friends for help with tasks and support at home, if needed. Dont smoke, drink alcohol, or use other harmful substances. Take steps to reduce stress. Report any unusual symptoms to your provider. Follow-up care Follow up with your healthcare provider, or as directed.Weekly visits with your provider may be needed. When to seek medical advice Call your healthcare provider right away if any of these occur: Regular or frequent contractions, whether they are painful or not Pressure in the pelvis Pressure in the lower belly or mild cramping in your belly with or without diarrhea Constant low, dull backache Gush or slow leaking of water from your vagina Change in vaginal discharge (watery, mucus, or bloody) Any vaginal bleeding Decreased movement of your baby [employer] last reviewed this educational content on 07/29/201719998517-5096 [employer]. [address] [place] [address], [place] [address]. All rights reserved. This information is not intended as a substitute for professional medical care. Always follow your healthcare professional's instructions. documented in this encounter Progress Notes Sherry Calderon PA-C - 10/19/2019 4:30 PM CDT Chief complaint: Chief Complaint Patient presents with ROUTINE VISIT HPI Isela Ram is a 24 year old female @ 34w3d coming in for PN visit. Denies contractions,vaginal bleeding, LOF, dysuria, or PIH symptoms. + [...] Former Smoker Quit date: 09/02/2014 Years since quittin.1 Smokeless tobacco: Never Used Substance and Sexual [...] file Gets together: Not on file Attends congregation service: Not on file Active member of [...] Activity Yes Partners: Male control/protection: None Labs none Radiology none Allergies Isela is allergic to sulfa (sulfonamide antibiotics). Medications Isela has a current medication list which includes the following prescription(s): vit calc,iron,folic. Review of Systems Constitutional: Negative for appetite change, fatigue, fever, unexpected weight change, weight gain and weight loss. HENT: Negative for rhinorrhea and sore throat. Eyes: Negative for pain and itching. Respiratory: Negative for cough, chest tightness and shortness of breath. Breasts: Negative for discharge, mass and pain. Cardiovascular: Negative for chest pain, palpitations and leg swelling. Gastrointestinal: Negative for abdominal pain, constipation, diarrhea and nausea. Genitourinary: Negative for bladder incontinence, dysuria, vaginal discharge, difficulty urinating, vaginal pain and pelvic pain. Musculoskeletal: Negative for gait problem and myalgias. Skin: Negative for rash. Neurological: Negative for dizziness and headaches. Psychiatric/Behavioral: Negative for suicidal ideas. The patient is not nervous/anxious. Endocrine: Negative for hair loss, weight gain and weight loss. LMP 02/28/2019 Pregravid BMI: 22.33 Physical Exam Vitals reviewed. Constitutional: She is oriented to person, place, and time. She appears well- developed and well-nourished. Neck: No mass. No thyromegaly palpated. No neck adenopathy. Cardiovascular: Regular rate and rhythm. Pulmonary/Chest: Normal inspiratory effort. Abdominal: Abdomen is soft. No tenderness present. No hernia palpated or inspected. Neuro/Psychiatric: She has a normal mood and affect. She is oriented to person, place, and time. Skin: Skin normal. Lymphadenopathy: No neck adenopathy present. No axillary adenopathy present. No inguinal adenopathy present. Assessment/Plan SEE OB SUMMARY Return to clinic in 2 weeks. Discussed treatment options. Reviewed patient instructions and provided printed copy. Activity restrictions: As tolerated This visit did not involve counseling and coordination that comprised more than 50% of the visit time. Sheryr Calderon PA-C 10/19/2019 1:10 PM documented in this encounter Miscellaneous Notes OB Summary Note - Sherry Calderon PA-C - 10/19/2019 4:30 PM CDTAge: 24 year old GA: 34w3d Doing well, no complaints. 1 hr gtt-abnl, 3 hr gtt-wnl USG done on 2019: Single live intrauterine gestation at 20 w0d by best EDD11/27/2019. The outflow tracts and diaphragm were not seen well. Other anatomy appeared normal. --> follow-up USG on 10/18/2019 revealed EFW 42% 34w 1d by this ultrasound Best gestational age 34w 2d determined by Early Ultrasound (06/11/19) Regular FHR 120 bpm Cephalic presentation Placenta anterior No previa AFIWithin normal limits PP contraception -nexplanon Daily kick counts. FOLLOW-UP In 2 wks for PN visit. Daily kick counts documented in this encounter Plan of Treatment Date Type Specialty Care Team Description 11/02/2019 Routine Obstetrics & Castaneda, Verito Currie MD Visit Gynecology [address] [place] [address] [address] [place] [place], [place] [address] [phone] Name Type Priority Associated Diagnoses Order S chedule URINE CULTURE LAB Routine Malodorous urine Expected: 10/19/2019, Expires: 10/18/2020 Health Maintenance Due Date Last Done Comments [...] Name Priority Date/Time Associated Diagnosis Comme nts POCT URINALYSIS W/O Routine 10/19/2019 Normal in R esults for this SPECIFIC GRAVITY third trimester procedure are in the 34 weeks gestation of result s section. documented in this encounter Results POCT URINALYSIS W/O SPECIFIC GRAVITY (10/19/2019) Pathologist Sig nature POCT PH U 7 5 - 8 mg/dl POCT U LEUK EST trace Negative - Negative POCT U NIT neg Negative - Negative POCT U PROT neg Negative - Negative POCT U GLU neg Negative - Negative POCT U KETONE neg Negative - Negative POCT U BLD neg Negative - Negative Specimen Urine - URINE, CLEAN CATCH documented in this encounter Visit Diagnoses Diagnosis Normal in third trimester - Pr imary 34 weeks gestation of state, incidental Malodorous urine Other nonspecific finding on examination of urine documented in this encounter documented as of this encounter
--- OUTSIDE RECORDS SUMMARY | 2020-01-01 14:15 | XMS REPORT | Summary of Care ---
:1995 Author Organization [facility] Address [address] [place] [address] Care Team Providers Name Role Phone Pcp, Patient Does Not Have A Primary Care Provider +1-000-00 0-0000 Reason for Visit Reason Comments ROUTINE VISIT Encounter Details Date Type Department Care Team Description 11/08/2019 Routine [facility] Women's Sherry Calderon, Normal in third trimester (Primary Dx); Visit Healthcare- PA-C 37 weeks gestation of [address], [address] [address] [phone] Allergies Active Allergy Reactions Severity Noted Date Comments Sulfa (Sulfonamide Antibiotics) Rash 0 documented as of this encounter (statuses as of 11/08/2019) Medications Medication Sig Dispensed Refills Start Date End Date Status vit Take by mouth. 0 A ctive calc,iron,folic ( VITAMIN ORAL) documented as of this encounter (statuses as of 11/08/2019) Active Problems Problem Noted Date Normal in third trimester 09/03/2019 History of loop electrical excision procedure (LEEP) 0 09/03/2019 36 weeks gestation of 09/03/2019 Estimated Date of Delivery Comments Yes 11/27/2019 Based on Patient Rep orted documented as of this encounter (statuses as of 11/08/2019) Immunizations Name Administration Dates Next Due TDAP [...] been in contact with No / Unsure 11/07/2019 1:10 PM CDT someone who was confirmed or suspected to have Coronavirus / COVID-19? documented as of this encounter Last Filed Vital Signs Vital Sign Reading Time Taken Comments Blood Pressure 107/71 11/08/2019 8:59 AM CDT Pulse 73 11/08/2019 8:59 AM CDT Temperature 36.5 C (97.7 F) 11/08/2019 8:59 AM CDT Respiratory Rate 18 11/08/2019 8:59 AM CDT Oxygen Saturation - - Inhaled Oxygen Concentration - - Weight 68.5 kg (151 lb) 11/08/2019 8:59 AM CDT Height 162.6 cm (5' 4") 11/08/2019 8:59 AM CDT Body Mass Index 25.92 11/08/2019 8:59 AM CDT documented in this encounter Patient Instructions Patient InstructionsHillary Munzo MA - 11/08/2019 8:45 AM CDT Patient Education Recognizing Labor The beginning of [...] and the start of the next contraction. [employer] ariadna reviewed this educational content on 11/28/201619999818-5568 [employer]. [address] [place] [address]. All rights reserved. This information is not [...] But the contractionsare much milder than before. [employer] last reviewed this educational content on 11/28/201619998413-5575 [employer], [employer]. [address] [place] [address], [place] [address]. All rights reserved. This information is not [...] when the mother does. Youll both benefit. [employer] last reviewed this educational content on 03/31/201719990049-8086 [employer]. [address] [place] [address]. All rights reserved. This information is not intended as a substitute for professional medical care. Always follow your healthcare professional's instructions. Patient Education Labor and Childbirth: Immediately after After any type of , your healthcare provider will closely monitor yourrecovery.Youll likely be able to greet your baby and start your new life together. While youre being cared for, yourbaby receives his or her first exam. Starting your life together Attachment, or bonding, starts soon after . Its an ongoing process that may take weeks or months. Be aware that you may not fall in love with your baby right away. Most newborns dont look like the chubby babies you see on TV. Months spent in your uterus and time in the canal can make your look wrinkled and puffy-eyed. A slightly pointed or misshapen head is also common. Theseall go away after a few days. After , you may place your baby on yourstomach or breast. This will signal your body to begin making milk. If you choose not to breastfeed, your healthcare providerwill instruct youon how to stop milk production.If you are going to breastfeed, your healthcare provider or nurse may help you introduce your baby to your breast and start . babies are usually very alert right after . They are ready to start .Whether or not you are going to breastfeed your baby, your baby will likely be placed fjea-ew-egkd on your chest. This allows your body to help regulate your baby's temperature. It can also start the bonding process. Your immediate recovery After , most women shake and get chills. This is over quickly. Your healthcare provider will watch your temperature and blood pressureuntil they are stable. Sanitary pads absorb the discharge ofyour uterine lining. To ensure that you arent bleeding too much, the pad and the firmness ofyour uterus will be checked. If you had anesthesia, your healthcare provider will watch you closelyuntil you can feel and move your toes. If you have pain, he or she maygive you pain relievers.If you have perineal pain, an ice pack can help. Babys first exam A healthcare provider will examine your babywithin the first 5 minutes after , or after you have had the opportunity to breastfeed your baby. Your babys heart rate, respiration (breathing), muscle tone, reflexes, and color are assessed. Based on the exam, an (activity, pulse, grimace, appearance, respiration) score is given. Your baby may also be bathed, dried, weighed, and measured. Eye drops may be given to prevent infection. ID bracelets are placed around the babys wrist and ankle. [employer] last reviewed this educational content on 03/31/201719998941-9920 The [employer]. [address] [place] [address]. All rights reserved. This information is not intended as a substitute for professional medical care. Always follow your healthcare professional's instructions. documented in this encounter Progress Notes Sherry Calderon PA-C - 11/08/2019 8:45 AM CDT Chief complaint: Chief Complaint Patient presents with ROUTINE VISIT HPI Isela Ram is a 24 year old female @ 37w2d coming in for PN visit. 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 Medications Isela has a current medication list which includes the following prescription(s): vit calc,iron,folic. Review of Systems Constitutional: Negative for appetite change, fatigue and fever. HENT: Negative for rhinorrhea and sore throat. [...] is not nervous/anxious. Endocrine: Negative for hair loss. LMP 02/28/2019 Pregravid BMI: 22.33 Physical [...] SEE OB SUMMARY Return to clinic in 1 weeks. Discussed treatment options. Reviewed patient instructions and provided printed copy. Activity restrictions: As tolerated This visit did not involve counseling and coordination that comprised more than 50% of the visit time. Sherry Calderon PA-C 11/08/2019 8:51 AM documented in this encounter Miscellaneous Notes OB Summary Note - Sherry Calderon PA-C - 11/08/2019 8:45 AM CDTAge: 24 year old GA: 37w2d Doing well, no complaints. Elective induction at 39 wks scheduled for 11/22/2019 unless clinically indicated otherwise Daily kick counts Strong labor precautions given. GC/CT-neg GBS-neg CBC-wnl FOLLOW-UP in 1 wk for PN visit. Patient would like to do a L&D tour next OV. documented in this encounter Plan of Treatment Date Type Specialty Care Team Description 11/15/2019 Routine Obstetrics & Castaneda, Verito Currie MD Visit Gynecology [address] [place] [address] [address]. [address] [place], [place] [address] [phone] Health Maintenance Due Date Last Done Comments [...] Diagnosis Comme nts POCT URINALYSIS W/O Routine 11/08/2019 37 weeks gestation of Results for this SPECIFIC GRAVITY procedure a re in the results section . documented in this encounter Results POCT URINALYSIS W/O SPECIFIC GRAVITY (11/08/2019) Pathologist Sig nature POCT PH U N/A 5 - 8 mg/dl POCT U LEUK EST N/A Negative - Negative POCT U NIT N/A Negative - Negative POCT U PROT Negative Negative - Negative POCT U GLU Negative Negative - Negative POCT U KETONE N/A Negative - Negative POCT U BLD N/A Negative - Negative Specimen Urine - URINE, CLEAN CATCH documented in this encounter Visit Diagnoses Diagnosis Normal in third trimester - Pr imary 37 weeks gestation of state, incidental documented in this encounter documented as of this encounter
--- OUTSIDE RECORDS SUMMARY | 2020-01-01 14:15 | XMS REPORT | Summary of Care ---
:1995 Author Organization [facility] Address [address] [place] [address] Care Team Providers Name Role Phone Pcp, Patient Does Not Have A Primary Care Provider +1-000-00 0-0000 Reason for Visit Reason Comments ULTRASOUND (Routine) Status Reason Specialty Diagnoses / Referred By Referred To Procedures Contact Contact Closed Maternal Diagnoses Normal in third trimester 32 weeks gestation of Verito Castaneda MD Medicine Procedures CONSULT MATERNAL MEDICINE ULTRASOUND Preferred Location: [address] [place] [address] Encounter Details Date Type Department Care Team Description 10/18/2019 Fleet Maintenance Manager Visit [facility] Jag Rowe Su pervision of high risk in second trimester; Ultrasound-Ramos PLATT Encounter for screening for ma lformation using ultrasound [address] [phone] Allergies Active Allergy Reactions [...] Obstetrics & Sherry Calderon, Visit Gynecology EB [address] [place] [address] Health Maintenance Due Date Last Done [...] filedocumented in this encounter Visit Diagnoses Diagnosis Supervision of high risk in se cond trimester Unspecified high-risk Encounter for screening for ma lformation using ultrasound documented in this encounter documented as of this encounter
--- OUTSIDE RECORDS SUMMARY | 2020-01-01 14:15 | XMS REPORT | Summary of Care ---
:1995 Author Organization [facility] Address [address] [place] [address] Care Team Providers Name Role Phone Pcp, Patient Does Not Have A Primary Care Provider +1-000-00 0-0000 Reason for Visit Reason Comments Assessment Encounter Details Date Type Department Care Team Description 11/09/2019 Telephone [facility] Women's CastanedaVerito MD Assessment Healthcare- [address] [address] [address] [place] [address] [place] [address] [phone] Allergies Active Allergy Reactions Severity Noted Date Comments Sulfa (Sulfonamide Antibiotics) Rash 0 documented as of this encounter (statuses as of 11/09/2019) Medications Medication Sig Dispensed Refills Start Date End Date Status vit Take by mouth. 0 A ctive calc,iron,folic ( VITAMIN ORAL) documented as of this encounter (statuses as of 11/09/2019) Active Problems Problem Noted Date Normal in third trimester 09/03/2019 History of loop electrical excision procedure (LEEP) 0 09/03/2019 36 weeks gestation of 09/03/2019 Estimated Date of Delivery Comments Yes 11/27/2019 Based on Patient Rep orted documented as of this encounter (statuses as of 11/09/2019) Immunizations Name Administration Dates Next Due TDAP [...] Signs Not on filedocumented in this encounter Miscellaneous Notes Telephone Encounter - Moraima Da Silva RN - 11/09/2019 9:24 AM CDTRN spoke with patient, name and verified. Patient states that she feels like the baby's movements have slowed down. Patient denies doing kick counts where she focuses on baby's movements. RN educated patient on kick counts and being free from distraction to just focus on the kick counts. Patient states that she most likely is getting the 10 movements in 2 hours, just that the movements aren't as big as she's used to. RN advised patient that the space is getting tighter for baby to move so the movements may be more subtle. L&D precautions given for inadequate kick count, contractions and LOF/Vaginal bleeding. Patient verbalized understanding and agrees to plan of care. Moraima Da Silva RN 11/09/2019 9:30 AM Telephone Encounter - Maya Mariano - 11/09/2019 9:18 AM CDTPt stated baby is not moving as much. documented in this encounter Plan of Treatment Date Type Specialty Care Team Description 11/13/2019 Routine Obstetrics & Castaneda, Verito Currie MD Visit Gynecology [address] [place] [address] [address] [place] [address] [phone] Health Maintenance Due Date Last Done Comments [...] Subscriber ID Effective Dates Phone Address Type RUST [id number] 2019-Present documented as of this encounter
--- OUTSIDE RECORDS SUMMARY | 2020-01-01 14:15 | XMS REPORT | Summary of Care ---
:1996 Author Organization [facility] - Health Address [address] [place] [address] Care Team Providers Name Role Phone Pcp, Patient Does Not Have A Primary Care Provider +1-000-00 0-0000 Encounter Details Date Type Department Care Team Description 10/15/2019 Orders Only [facility] Doctor Unassigned, No [address] [facility] [place] [address] [address] [place] [address] Allergies Active Allergy Reactions Severity Noted Date Comments Sulfa (Sulfonamide Antibiotics) Rash 0 documented as of this encounter (statuses as of 10/15/2019) Medications Medication Sig Dispensed Refills Start Date End Date Status vit Take by mouth. 0 A ctive calc,iron,folic ( VITAMIN ORAL) documented as of this encounter (statuses as of 10/15/2019) Active Problems Problem Noted Date Normal in second trimester 09/03/2019 History of loop electrical excision procedure (LEEP) 0 09/03/2019 32 weeks gestation of 09/03/2019 Estimated Date of Delivery Comments Yes 11/27/2019 Based on Patient Rep orted documented as of this encounter (statuses as of 10/15/2019) Immunizations Name Administration Dates Next Due TDAP [...] Treatment Date Type Specialty Care Team Description 10/18/2019 Lead Advisor Visit Maternal Medicine 10/19/2019 Routine Visit Obstetrics & Sherry Calderon, Gynecology [facility] [address] [address] Health Maintenance Due Date Last [...] Name Priority Date/Time Associated Diagnosis Comme nts INSURANCE CORRESPONDENCE Routine 10/15/2019 12:01 AM CDT documented in this encounter Results Not on filedocumented in this encounter Insurance Payer Benefit Plan / Group Subscriber ID Effective Dates Phone Address Type [facility] [id number] 2019-Present documented as of this encounter
--- OUTSIDE RECORDS SUMMARY | 2020-01-01 14:15 | XMS REPORT | Summary of Care ---
:1996 Author Organization [facility] Address [address] [place] [address] Care Team Providers Name Role Phone Pcp, Patient Does Not Have A Primary Care Provider +1-000-00 0-0000 Reason for Visit Reason Comments ROUTINE VISIT Encounter Details Date Type Department Care Team Description 11/02/2019 Routine [facility] Women's Verito Castaneda am, MD Normal in third trimester (Marita farah Dx); Visit Healthcare- [address] [place] [address] 36 weeks g estation of [place] [address] [place] [address], [address] [place] [address] [phone] Allergies Active Allergy Reactions Severity Noted Date Comments Sulfa (Sulfonamide Antibiotics) Rash 0 documented as of this encounter (statuses as of 11/02/2019) Medications Medication Sig Dispensed Refills Start Date End Date Status vit Take by mouth. 0 A ctive calc,iron,folic ( VITAMIN ORAL) documented as of this encounter (statuses as of 11/02/2019) Active Problems Problem Noted Date Normal in third trimester 09/03/2019 History of loop electrical excision procedure (LEEP) 0 09/03/2019 36 weeks gestation of 09/03/2019 Estimated Date of Delivery Comments Yes 11/27/2019 Based on Patient Rep orted documented as of this encounter (statuses as of 11/02/2019) Immunizations Name Administration Dates Next Due TDAP [...] Sign Reading Time Taken Comments Blood Pressure 108/64 11/02/2019 4:25 PM CDT Pulse 85 11/02/2019 4:25 PM CDT Temperature 36.7 C (98 F) 11/02/2019 4:25 PM CDT Respiratory Rate 18 11/02/2019 4:25 PM CDT Oxygen Saturation - - Inhaled Oxygen Concentration - - Weight 68 kg (150 lb) 11/02/2019 4:25 PM CDT Height 160 cm (5' 3") 11/02/2019 4:25 PM CDT Body Mass Index 26.57 11/02/2019 4:25 PM CDT documented in this encounter Progress Notes Verito Castaneda MD - 11/02/2019 4:00 PM CDT Chief complaint: Chief Complaint Patient presents with ROUTINE VISIT HPI Isela Ram is a 24 year old female @ 36w3d here for routine visit. 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 Hematological: Does not bruise/bleed easily. BP 108/64 (BP Location: Left arm, Patient Position: Sitting, BP CUFF SIZE: Adult Medium) | Pulse 85 | Temp 36.7 C (98 F) (Oral) | Resp 18 | Ht 5' 3" (1.6 m) | Wt 150 lb (68 kg) | LMP 02/28/2019 | BMI 26.57 kg/m Pregravid BMI: 22.33 Physical Exam Vitals [...] See OB Summary Return to clinic in 1 weeks. Reviewed patient instructions and provided printed copy. Activity restrictions: As tolerated at 36w3d This visit did not involve counseling and coordination that comprised more than 50% of the visit time. Verito Castaneda MD 11/02/2019 5:46 PM documented in this encounter Miscellaneous Notes OB Summary Note - Verito Castaneda MD - 11/02/2019 4:00 PM CDTAge: 24 year old GA: 36w3d - Doing well - No obvious abnormalities noted on follow-up USG done on 10/18/2019 - Elective induction at 39 wks scheduled for 11/22/2019 unless clinically indicated otherwise This reviews what Dr. Castaneda talked about at your 36 week talk: 1. Go to Labor and Delivery when your contractions are 5-7 minutes apart and you have been able to time them for an hour. If you live more than 30 minutes from the hospital, then go when they are 10 minutes apart and you have been able to time them for an hour. 2. BUT, there are 4 reasons to go to Labor and Delivery REGARDLESS of what else is happening, whether you are sebastian or not: 1. If your water breaks - - - it may be a gush or a constant trickle. If you are not sure, always come in to be checked. 2. Bleeding like your period. 3. If your baby's movements are less than 10 in an hour. If you are concerned this might be the case, drink a tall glass of cold fluids, lay down on your side on the couch or your bed and see how long it takes to note 10 movements - if less than 10, this needs to be evaluated immediately. 4. Contractions or Pain that is continuous. Normal labor contractions last only 45 seconds - 1 minute. cephalic presentation GC/CT and GBS obtained, CBC ordered Zika precautions reviewed Contraception PP: Nexplanon Delivery consent signed today RTC in 1 wk for PN documented in this encounter Plan of Treatment Date Type Specialty Care Team Description 11/07/2019 Principal Technologist Visit Phlebotomy 2, Adc Lab 11/08/2019 Routine Visit Obstetrics & Sherry Calderon, Gynecology EB [address] [place] [phone] Name Type Priority Associated Diagnoses Date/Ti me GROUP B STREPTOCOCCUS BY LAB Routine Normal in 11/02/2019 4:29 PM PCR third trimester CDT 36 weeks gestation of GC & CHLAMYDIA AMPLIFIED LAB Routine Normal in 11/02/2019 4:29 PM ASSAY third trimester CDT 36 weeks gestation of Name Type Priority Associated Diagnoses Order S chedule CBC WITH DIFF LAB Routine Normal in third E xpected: 11/02/2019, trimester Expires: 02/01/2020 36 weeks gestation of Health Maintenance Due Date Last Done Comments VARICELLA VACCINES (1 of - 1997 2-dose childhood series) MENINGOCOCCAL B [...] Diagnosis Comme nts POCT URINALYSIS W/O Routine 11/02/2019 Normal in R esults for this SPECIFIC GRAVITY third trimester procedure are in the 36 weeks gestation of result s section. documented in this encounter Results POCT URINALYSIS W/O SPECIFIC GRAVITY (11/02/2019) Pathologist Sig nature POCT PH U n/a 5 - 8 mg/dl POCT U LEUK EST n/a Negative - Negative POCT U NIT n/a Negative - Negative POCT U PROT neg Negative - Negative POCT U GLU neg Negative - Negative POCT U KETONE n/a Negative - Negative POCT U BLD n/a Negative - Negative Specimen Urine - URINE, CLEAN CATCH documented in this encounter Visit Diagnoses Diagnosis Normal in third trimester - Pr imary 36 weeks gestation of state, incidental documented in this encounter documented as of this encounter
--- OUTSIDE RECORDS SUMMARY | 2020-01-01 14:15 | XMS REPORT | Summary of Care ---
:1996 Author Organization [facility] Address [address] [place] [address] Care Team Providers Name Role Phone Pcp, Patient Does Not Have A Primary Care Provider +1-000-00 0-0000 Reason for Visit Reason Comments LAB Encounter Details Date Type Department Care Team Description 11/07/2019 Ingot Buggy Operator Visit [facility] Verito Castaneda MD [address] [place] [address] [address] [place] [address] Normal in third trimester; Professional Office 2, Adc Lab 36 weeks gestation of Building Phlebotomy Lab Professional Office Building [address] [place] [address] , [address] [place] [address] Allergies Active Allergy Reactions Severity Noted Date Comments Sulfa (Sulfonamide Antibiotics) Rash 0 documented as of this encounter (statuses as of 11/07/2019) Medications Medication Sig Dispensed Refills Start Date End Date Status vit Take by mouth. 0 A ctive calc,iron,folic ( VITAMIN ORAL) documented as of this encounter (statuses as of 11/07/2019) Active Problems Problem Noted Date Normal in third trimester 09/03/2019 History of loop electrical excision procedure (LEEP) 0 09/03/2019 36 weeks gestation of 09/03/2019 Estimated Date of Delivery Comments Yes 11/27/2019 Based on Patient Rep orted documented as of this encounter (statuses as of 11/07/2019) Immunizations Name Administration Dates Next Due TDAP [...] in contact with No / Unsure 11/07/2019 9:28 AM CDT someone who was confirmed or suspected to have Coronavirus / COVID-19? documented as of this encounter Last Filed Vital Signs Not on filedocumented in this encounter Nursing Notes Isela Huntley - 11/07/2019 9:45 AM CDT Venipuncture collection performed by clean technique on the right anticubitus. Total of 1 attempts were made. Slight pressure and a bandage/dressing were applied to the site(s). The patient experiencedno complications. The following specimens were processed according to instructions and sent to [facility] laboratories per lab order on 11/07/19: LT BLUE SST RED LAV 1 PPT DK GREEN (LiHep) DK GREEN (SodH) PRIDE DK BLUE (K2) DK BLUE (S) ACD Blood Culture NIPT/NTD documented in this encounter Plan of Treatment Date Type Specialty Care Team Description 11/08/2019 Routine Obstetrics & Sherry Calderon, Visit Gynecology EB [address] [place] [phone] Health Maintenance Due Date Last Done [...] Visit Diagnoses Diagnosis Normal in third trimester 36 weeks gestation of state, incidental documented in this encounter documented as of this encounter
--- OUTSIDE RECORDS SUMMARY | 2020-01-01 14:16 | XMS REPORT | Summary of Care ---
:1995 Author Organization [facility] Address [address] [place] [id number] Care Team Providers Name Role Phone Pcp, Patient Does Not Have A Primary Care Provider +[id number] 0-0000 Reason for Visit Reason Comments Care (Routine) Status Reason Specialty Diagnoses / Procedures Referred By C ontact Referred To Contact Closed Obstetrics Diagnoses Normal in third trimester 39 weeks gestation of Encounter for elective induction of labor Liveborn , of luong , born in hospital by vaginal delivery Verito Castaneda MD Lam, Vien Cam, MD History of loop electrical excision procedure (LEEP) [address] [place] [address] Procedures DISCHARGE FOLLOW-UP: PRIVATE PHYSICIAN DR. GALINDO [address] [place], [place] [address] [place] [id number] Phone: Fax: Encounter Details Date Type Department Care Team Description 12/18/2019 Routine [facility] Women's Sherry Calderon, care and examination (Primary Dx); Visit Healthcare- PA-C control counseling; [address] Needs flu shot [address] [facility], [address] [place] [id number] Allergies Active Allergy Reactions Severity Noted Date Comments Sulfa (Sulfonamide Antibiotics) Rash 0 documented as of this encounter (statuses as of 12/18/2019) Medications Medication Sig Dispensed Refills Start Date End Date Status vitamin w/FA Take 1 tablet by 100 tablet 3 11/21/2019 Active tabletIndications: mouth daily. Normal in third trimester, 39 weeks gestation of , Encounter for elective induction of labor, Liveborn , of luong , born in hospital by vaginal delivery, History of loop electrical excision procedure (LEEP) docusate calcium 240 Take 1 capsule by 60 capsule 1 11/21/2019 Active mg mouth once daily capsuleIndications: as needed for Normal in Constipation. third trimester, 39 weeks gestation of , Encounter for elective induction of labor, Liveborn , of luong , born in hospital by vaginal delivery, History of loop electrical excision procedure (LEEP) ferrous sulfate 325 Take 1 tablet by 60 tablet 2 11/21/2019 Active mg (65 mg iron) mouth 2 (two) tabletIndications: times daily. Normal in third trimester, 39 weeks gestation of , Encounter for elective induction of labor, Liveborn infant, of luong , born in hospital by vaginal delivery, History of loop electrical excision procedure (LEEP) ibuprofen 600 mg Take 1 tablet by 30 tablet 1 11/21/2019 Active tabletIndications: mouth every 6 Normal in (six) hours as third trimester, 39 needed (Pain). weeks gestation of Take with food or , Encounter milk. for elective induction of labor, Liveborn infant, of luong , born in hospital by vaginal delivery, History of loop electrical excision procedure (LEEP) documented as of this encounter (statuses as of 12/18/2019) Active Problems Problem Noted Date History of loop electrical excision procedure (LEEP) 0 09/03/2019 documented as of this encounter (statuses as of 12/18/2019) Resolved Problems Problem Noted Date Resolved Date Encounter for elective induction of labor 11/20/2019 12/18/2019 Liveborn , of luong , born in hospital by 11/20/2019 12/18/2019 vaginal delivery Normal in third trimester 09/03/201911/29 39 weeks gestation of 09/03/2019 12/18/19 20 documented as of this encounter (statuses as of 12/18/2019) Immunizations Name Administration Dates Next Due Influenza Virus Vaccine Quad .5 mL IM 6+ MO 12/18/2019 12/17/2020 TDAP 09/03/2019 09/02/2029 documented as of this encounter Social History Tobacco Use Types Packs/Day Years Used Date Former Smoker Quit: 09/03/19 15 Smokeless Tobacco: Never Used Alcohol Use Drinks/Week oz/Week Comments Not Currently Sex Assigned at Date Recorded Not on file COVID-19 Exposure Response Date Recorded In the last month, have you been in contact with No / Unsure 12/18/2019 1:21 PM CDT someone who was confirmed or suspected to have Coronavirus / COVID-19? documented as of this encounter Last Filed Vital Signs Vital Sign Reading Time Taken Comments Blood Pressure 104/70 12/18/2019 1:42 PM CDT Pulse 67 12/18/2019 1:42 PM CDT Temperature 36.8 C (98.2 F) 12/18/2019 1:42 PM CDT Respiratory Rate 16 12/18/2019 1:42 PM CDT Oxygen Saturation - - Inhaled Oxygen Concentration - - Weight 60.8 kg (134 lb) 12/18/2019 1:42 PM CDT Height 162.6 cm (5' 4") 12/18/2019 1:42 PM CDT Body Mass Index 23 12/18/2019 1:42 PM CDT documented in this encounter Patient Instructions Patient InstructionsMahsa Roque MA - 12/18/2019 1:30 PM CDT Patient Education Etonogestrel implant What is this medicine? ETONOGESTREL (et oh srikanth SD trel) is a contraceptive ( control) device. It is used to prevent . It can be used for up to 3 years. How should I use this medicine? This device is inserted just under the skin on the inner side of your upper arm by a health client care coordinator. Talk to your call or contact centre operator regarding the use of this medicine in children. Special care may be needed. What side effects may I notice from receiving this medicine? Side effects that you should report to your doctor or health client care coordinator as soon as possible: allergic reactions like skin rash, itching or hives, swelling of the face, lips, or tongue breast lumps changes in emotions or moods depressed mood heavy or prolonged menstrual bleeding pain, irritation, swelling, or bruising at the insertion site scar at site of insertion signs of infection at the insertion site such as fever, and skin redness, pain or discharge signs of signs and symptoms of a blood clot such as breathing problems; changes in vision; chest pain; severe, sudden headache; pain, swelling, warmth in the leg; trouble speaking; sudden numbness or weakness of the face, arm or leg signs and symptoms of liver injury like dark yellow or brown urine; general ill feeling or flu-like symptoms; light-colored stools; loss of appetite; nausea; right upper belly pain; unusually weak or tired; yellowing of the eyes or skin unusual vaginal bleeding, discharge signs and symptoms of a stroke like changes in vision; confusion; trouble speaking or understanding; severe headaches; sudden numbness or weakness of the face, arm or leg; trouble walking; dizziness; loss of balance or coordination Side effects that usually do not require medical attention (report to your doctor or health client care coordinator if they continue or are bothersome): acne back pain breast pain changes in weight dizziness general ill feeling or flu-like symptoms headache irregular menstrual bleeding nausea sore throat vaginal irritation or inflammation What may interact with this medicine? Do not take this medicine with any of the following medications: amprenavir bosentan fosamprenavir This medicine may also interact with the following medications: barbiturate medicines for inducing sleep or treating seizures certain medicines for fungal infections like ketoconazole and itraconazole grapefruit juice griseofulvin medicines to treat seizures like carbamazepine, felbamate, oxcarbazepine, phenytoin, topiramate modafinil phenylbutazone rifampin rufinamide some medicines to treat HIV infection like atazanavir, indinavir, lopinavir, nelfinavir, tipranavir, ritonavir Jeremy's wort What if I miss a dose? This does not apply. Where should I keep my medicine? This drug is given in a hospital or clinic and will not be stored at home. What should I tell my health care provider before I take this medicine? They need to know if you have any of these conditions: abnormal vaginal bleeding blood vessel disease or blood clots cancer of the breast, cervix, or liver depression diabetes gallbladder disease headaches heart disease or recent heart attack high blood pressure high cholesterol kidney disease liver disease renal disease seizures tobacco smoker an unusual or allergic reaction to etonogestrel, other hormones, anesthetics or antiseptics, medicines, foods, dyes, or preservatives or trying to get breast-feeding What should I watch for while using this medicine? This product does not protect you against HIV infection (AIDS) or other sexually transmitted diseases. You should be able to feel the implant by pressing your fingertips over the skin where it was inserted. Contact your doctor if you cannot feel the implant, and use a non-hormonal control method (such as condoms) until your doctor confirms that the implant is in place. If you feel that the implant may have broken or become bent while in your arm, contact your healthcare provider. NOTE:This sheet is a summary. It may not cover all possible information. If you have questions aboutthis medicine, talk to your doctor, pharmacist, or health care provider. Copyright 2018 [employer] Patient Education Breast Care After A few days after your babys , your breasts will swell with milk. They are likely to feel tender and heavy. This is normal. To help prevent breast soreness and control irritation, follow these tips: Moist heat, like a shower, helps to promote the release of breastmilk. Coping with swelling Here are tips to cope with swelling: Use cold compresses or an ice pack to help reduce the ache or pain. Breastfeed often to keep milk from clogging your breast ducts. If your nipples are flat from breast swelling, hand express some milk. Squeeze out a few drops ofmilk by massaging and compressing your breasts. If you have swelling with pain or fever, call your healthcare provider. Preventing sore nipples Here are tips to prevent sore nipples: Make sure baby latches on to your breast correctly. The babys mouth should be opened very wideand your entire areola should be in the baby's mouth. You can let milk dry on your nipples. This dried milk can protect the skin on your nipple. Do not use alcohol, soap, or scented cleansers on your breasts. These can cause the nipples to dry and crack. Do not wear nursing pads that are lined with plastic. They hold in moisture and can cause chapping. If you have cracked or bleeding nipples, consult your healthcare provider or a pre owned sales consultant. He or she will make sure that your baby's latch is correct and may suggest topical treatment, like pure lanolin. Choosing a good bra Wearing the right-sized bra is especially important now. If a bra is too tight, it may cause a duct in your breast to clog and become irritated. If possible, have a salesperson help fit you for a new bra. Look for one thats 100% cotton and comfortable. Also, choose a bra with wide straps that wont dig into your back and shoulders. If youre , find a nursing bra that allows you touncoverone breast at a time. If you are not Here are tips to avoid discomfort: Avoid stimulation of nipples Wear a tight-fitting bra Apply cold compresses or ice packs for discomfort Call your healthcare provider Call your healthcare provider right away if you have any of the following: A fever or chills Extreme tiredness and body aches, as if you have the flu Burning or pain inone or both breasts Red streaks on a breast Hard or lumpy spots in one or both breasts A feeling of warmth or heat in one or both breasts Breasts so swollen your baby cannot latch on to the nipples Nipples that are cracked or bleeding Low milk supply or your milk does not flow freely ThisNext last reviewed this educational content on 02/28/201719996856-5280 [employer]. All rights reserved. This information is not intended as a substitute for professional medical care. Always follow your healthcare professional's instructions. Patient Education TheBreastfeeding Breast can seem mysterious at first. Whats going on inside the breast? Where does the milkcome from? Can the baby breathe OK? In fact, mothers and babies are naturally designed for . The picture below shows how you and your baby work together during . The right milk for the right time As your baby grows, his or her needs change. And your bodys milk changes to suit those needs. Youproduce 3 kinds of milk for your baby: Colostrum is the first milk. It is thick and yellowish,which is why many people call it "liquidgold."Colostrum provides all of the nutrients that your baby needs in the first days.It may not look like much, but it is all your baby needs during this time. Transitional milk comes in 2 to 5 days after . It can look creamy, white, or yellow. Mature milk begins in the second or third week after . It looks thinner or more watery. It can have a bluish tint. Levels of protein, fat, and antibodies in mature milk change as your babys needs change. Lobulesare structures that produce and store milk. Ductsare tubes that carry the milk to the nipple. The babys noseis flat, allowing easy breathing while . The nipple has many small openings where milk comes out. The areolaprovides oils to clean the nipple and help baby latch. During feeding, as much of the areola as possible should be in the babys mouth. This helps the baby get milk out of your breast. Itis also more comfortable than if the baby sucks on the nipple alone. The tonguehelps the baby suckle. You might even see the tip of it sticking out under the nipple while your baby nurses! ThisNext last reviewed this educational content on 03/31/201719994730-3002 [employer]. All rights reserved. This information is not intended as a substitute for professional medical care. Always follow your healthcare professional's instructions. Patient Education : Caring for Yourself When you have a new little person in your life, its easy to forget about yourself. There are new demands on your time. There are also new responsibilities. But its important to take care of yourself. This will help you take better care of your new baby. Healthy habits Here are some healthy tips: Get exercise when you can. If you leak milk, it will help tonurse right before the activity. Avoid smoking. Smoking is unhealthy for you and may cause you to make less milk. Secondhand smokeis also harmful to your baby. Talk to your healthcare provider about alcohol, if you choose to drink. When youre sick, tell your healthcare provider that you are .Few medicines andillnessesaffect , but it is important to check. Ask your healthcare provider before taking any prescription or wbvn-wdt-idcpszs medicines, herbs,or supplements. Comfy clothes Suggestions for being comfortable when include: Find a comfortable nursing bra.Many women find underwire uncomfortable. Some stores offer on-site fittings. Ask your healthcare provider or nurse for a referral. If you have leaking milk, place breast pads inside your bra. Choose an extra-supportive bra for exercise. Or you can wear two bras at the same time for more support. Wear loose tops that can be lifted for . You can also buy clothes specially made forbreastfeeding moms. A note about sex After delivery, it may take a while before your interest in sex returns. Share your feelings with your partner. Your healthcare provider will let you know when it is safe to resume having sex. When youre ready, know that: There are several forms of control that can be used while . Ask your healthcare provider what to use for prevention while you are nursing. hormonesmay cause vaginal dryness. Some women find using a water-based lubricant makes sex more comfortable. Milk mayleak outwhen you are aroused. Applying pressure on the nipple, using breast pads, or a towel may help with this. When to call your healthcare provider Call your healthcare provider if: You feel overwhelmed and don't know where to turn. You feel very sad or dont want to be with your baby. You feel like your baby cries all the time and won't be soothed. You are unable to exercise, or have sex, without discomfort. You are unsure about a medicine, illness, or activity and its effect on . ThisNext last reviewed this educational content on 03/31/201719994747-3705 [employer]. All rights reserved. This information is not intended as a substitute for professional medical care. Always follow your healthcare professional's instructions. Patient Education Nutrition While Do I need a special diet for ? Youdon'thave to eat a special diet tomake enough milk for your baby.Also, your milk will be of good quality for your baby regardless of what you eat.But your body needs fuel to make breastmilk. So eat your fill of a variety of foods. isnt an excuse to eat and drink everything you want. But its not a reason to avoid favorite foods either. Healthy diet for the new mother A healthy diet is recommended for all women and offers many benefits to the new mother. Choosing a variety of healthy foods creates a pattern for the entire family. Each family member benefits. Women who are need about 500 extra calories per day.Some women might need more, while othersmight need less. When choosing foods, use the nutrition chart below as a guide. Bread, cereal, rice, and pasta Vegetables Fruit Milk, yogurt, and cheese Meat, poultry, fish, dry beans, eggs, and nuts Fats, oils, and sweets (use sparingly) Whats good for you? Here are some things to do: women need to drink when they feel thirsty. There is no specific amount of water you need to drink to make enough milk. Follow healthy eating guidelines. Snack on fruit or low-fat dairy products if youre hungry between meals. If your healthcare provider recommends it, keep taking vitamins. Whats not good for you? Here are other things to consider: Limit fatty foods and foods that are high in sugar (cookies, cakes). Be aware that what enters your body may pass into your breastmilk. Limit caffeine. It is not diana coffee. It is also in cola, tea, and chocolate. Limit the amount of fish that may contain mercury, such as shark and swordfish. Talk with your healthcare providerbefore taking anymedicines. It is important to let yourhealthcare providerknow that you are nursing. Somemedicinesare not safe with . Remember:Alcohol, cigarettes, and drugs also affect your breastmilk and your baby. Talk with your healthcare provider. [email or web address] reviewed this educational content on 02/28/201719995117-1827 [employer]. All rights reserved. This information is not intended as a substitute for professional medical care. Always follow your healthcare professional's instructions. documented in this encounter Progress Notes Sherry Calderon PA-C - 12/18/2019 1:30 PM CDT Isela Ram is a 24 year old female s/p vaginal delivery on 11/20/2019 presents for pp visit. without issues. Denies blues or depressive symptoms. Denies intercourse. Stopped bleeding. Past Medical History: Diagnosis Date History of loop electrical excision procedure (LEEP) 06/2018 History of ovarian cyst Hypoglycemia Pap smear abnormality of cervix 2019 hx of 2018 ; Colpo with LEEP Past Surgical History: Procedure Laterality Date COLPOSCOPY,CERVIX W/ADJ VAG,W/LOOP BX 06/2018 OVARIAN CYSTECTOMY 2012 TOOTH EXTRACTION 2019 wisdom teeth Allergies Allergen Reactions Sulfa (Sulfonamide Antibiotics) Rash Current Outpatient Medications on File Prior to Visit Medication Sig Dispense Refill vitamin w/FA tablet Take 1 tablet by mouth daily. 100 tablet 3 docusate calcium 240 mg capsule Take 1 capsule by mouth once daily as needed for Constipation. 60 capsule 1 ferrous sulfate 325 mg (65 mg iron) tablet Take 1 tablet by mouth 2 (two) times daily. 60 tablet2 ibuprofen 600 mg tablet Take 1 tablet by mouth every 6 (six) hours as needed (Pain). Take with food or milk. 30 tablet 1 No current facility-administered medications on file prior to visit. 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 [place] Social Needs Financial resource strain: Not on file Food insecurity Worry: Not on file Inability: Not on file Transportation needs Medical: Not on file Non-medical: Not on file Tobacco Use Smoking status: Former Smoker Quit date: 09/02/2014 Years since quittin.2 Smokeless tobacco: Never Used Substance and Sexual [...] file Gets together: Not on file Attends buddhist service: Not on file Active member of [...] Sister; her is currently deployed in [place] BP: (104)/(70) Temp: [36.8 C (98.2 F)] Temp source: Oral (12/17 1342) Pulse: [67] Resp: [16] SpO2: -- Height: [5' 4" (162.6 cm)] Weight: [134 lb (60.8 kg)] BMI (calculated): [23] NAD, EPDS score 7 Breathing unlabored Breasts: No engorgement Abdomen: No tenderness or masses. No hernia. Pelvic: Perineum well healed Bimanual: Uterus well involuted, nontender. Adnexa without tenderness or masses A/P: Pelvic rest x 2 weeks. Discussed contraception as below: Return for Well Woman exam in 6 months Call for any questions or concerns care and examination (primary encounter diagnosis) FOLLOW-UP in 6 months for WWE control counseling Also counseled the patient about her options for control. We discussed risks and benefits of condoms, diaphragms along with control pills, the control patch and the Nuva ring. I then discussed risks and benefits of the Depo Provera injection, the various IUDs (Rosalia, Mirena, Paraguard) and the Nexplanon implant. After counseling, the patient is most interested in nexplanon. Proper use was discussed and reviewed. I stressed the importance of using condoms regardless of her contraceptive method to assist in prevention of sexually transmitted infections. I discussed that no control method is 100% in preventing except abstinence. The patient expressed understanding. Follow-up in 2 wks for nexplanon insertion with janette. Sherry Calderon PA-C 12/18/2019 2:02 PM documented in this encounter Plan of Treatment Date Type Specialty Care Team Description 01/07/2020 Office Visit Obstetrics & Gynecology Katerine Castaneda MD [address] [place] [address] DR. Zheng [address] [place] [address] 15 [phone] Health Maintenance Due Date Last Done Comments [...] Name Priority Date/Time Associated Diagnosis Comme nts FLU VACC ([id number]), Routine 12/18/2019 2:08 PM CDT Needs fl u shot 6+ MONTHS, IM, QUAD documented in this encounter Results Not on filedocumented in this encounter Visit Diagnoses Diagnosis care and examination - Primar y Routine follow-up control counseling General counseling for initiation of oth er contraceptive measures Needs flu shot Need for prophylactic vaccination and in oculation against influenza documented in this encounter documented as of this encounter
--- OUTSIDE RECORDS SUMMARY | 2020-01-01 14:16 | XMS REPORT | Continuity of Care Document ---
:1995 Author Organization [facility] t Address [address] [place] [address] Care Team Providers Name Role Phone Kvng PARSON Attending Clinician Kush Castaneda MD Attending Clinician Only, Test Attending Clinician Unavailable 2, Lab Attending Clinician Unavailable Doctor Unassigned, Name Attending Clinician Unavailable 1, Us Room Attending Clinician Unavailable Leonel PLATT, Kush Admitting Clinician Problems This patient has no known problems. Allergies, Adverse Reactions, Alerts This patient has no known allergies or adverse reactions. Medications This patient has no known medications. Procedures This patient has no known procedures. Encounters Start End Encounter Admission Attending Care Care Encounter Source Date/Time Date/Time Type Type Clinicians Facility Department ID 2019-12-18 2019-12-18 Routine Kvng [place] [id number] 13:23:22 14:18:45 Sherry Miller [id number] Visit [place] [id number] [facility] [phone] [address] 2019-11-20 2019-11-21 Hospital Verito Castaneda [facility] [id number] 03:42:00 16:00:00 Encounter Kush Miller [id number] [place] [id number] [place] [id number] [id number] 2019-11-19 2019-11-19 Laboratory Only, [facility] [id number] 13:32:34 13:47:34 Only Test [place] [id number] [place] 4.2.7.2.686 [place] [id number] [id number] 2019-11-13 2019-11-13 Routine Verito Castaneda [facility] [id number] 08:11:50 08:59:34 [place] [id number] Visit [place] [id number] [facility] [phone] [address] 2019-11-09 2019-11-09 Telephone Verito Castaneda [facility] [id number] 00:00:00 00:00:00 [place] [id number] [place] [id number] [facility] [id number] [address] 2019-11-08 2019-11-08 Routine Kvng [facility] [id number] 08:43:45 09:13:25 Sherry Angela [id number] Visit [place] [id number] [facility] [id number] [address] 2019-11-07 2019-11-07 Volunteer Services Director 2, Adc Lab [facility] [id number] 09:29:04 09:44:04 [place] [id number] [place] [id number] [facility] [id number] [address] 2019-11-02 2019-11-02 Routine Verito Castaneda [facility] [id number] 15:46:41 16:53:21 [place] [id number] Visit [place] [id number] [facility] [phone] [address] 2019-11-02 2019-11-02 Orders Doctor PAVAN [id number] 00:00:00 00:00:00 Only Unassigned, LUNA 350.1.13.10 [place] [facility] 4.2.7.2.686 [id number] 2019-10-19 2019-10-19 Routine Kvng [facility] [id number] 12:46:08 13:38:11 Sherry Miller 350.1.13.10 Visit [place] [id number] [facility] [id number] [address] 2019-10-18 2019-10-18 Volunteer Services Director 1Amy [facility] [id number] 15:00:57 16:03:00 Visit Us Room TEST DESK TROUBLE LOCATOR [id number] [facility] 4.2.7.2.686 MATERNAL [phone] & CHILD [address] [place] [address] Results This patient has no known results.
--- OUTSIDE RECORDS SUMMARY | 2020-01-01 14:16 | XMS REPORT | Summary of Care ---
:1995 Author Organization [facility] Address [address] [place] [id number] Care Team Providers Name Role Phone Pcp, Patient Does Not Have A Primary Care Provider +1-000-00 0-0000 Reason for Visit Reason Comments LAB WORK Auth/Cert Status Reason Specialty Diagnoses / Referred By Referred To Procedures Contact Contact Clinical Medical Procedures Adc Lab Laboratory COVID TEST [address] [place] [address] Encounter Details Date Type Department Care Team Description 11/19/2019 Laboratory Only [facility] Verito Castaneda M D [address] [address] Pre-operative Phlebotomy Only, [facility] Test clearance (Primary Lab-[place] Dx) [address] [place] [address] Allergies Active Allergy Reactions Severity Noted Date Comments Sulfa (Sulfonamide Antibiotics) Rash 0 documented as of this encounter (statuses as of 11/19/2019) Medications Medication Sig Dispensed Refills Start Date End Date Status vit Take by mouth. 0 A ctive calc,iron,folic ( VITAMIN ORAL) documented as of this encounter (statuses as of 11/19/2019) Active Problems Problem Noted Date Normal in third trimester 09/03/2019 History of loop electrical excision procedure (LEEP) 0 09/03/2019 38 weeks gestation of 09/03/2019 Estimated Date of Delivery Comments Yes 11/27/2019 Based on Patient Rep orted documented as of this encounter (statuses as of 11/19/2019) Immunizations Name Administration Dates Next Due TDAP [...] been in contact with No / Unsure 11/19/2019 1:32 PM CDT someone who was confirmed or suspected to have Coronavirus / COVID-19? documented as of this encounter Last Filed Vital Signs Not on filedocumented in this encounter Nursing Notes Loreto Kelly - 11/19/2019 2:00 PM CDTcovid documented in this encounter Plan of Treatment Date Type Specialty Care Team Description 11/20/2019 Hospital Encounter Obstetrics Verito Castaneda MD [address] [place] [address] 7[address] 15 12/18/2019 Routine Obstetrics & Sherry Calderon, Visit Gynecology PA-C [address] [place] [phone] Name Type Priority Associated Diagnoses Date/Ti me COVID-19 (ID NOW RAPID LAB Routine Pre-operative manju daniel 11/19/2019 1:51 PM CDT TESTING) Name Type Priority Associated Diagnoses Order S chedule COVID-19 (ID NOW RAPID LAB Routine Pre-operative manju daniel Expected: 11/19/2019, TESTING) Expires: 2020 Health Maintenance Due Date Last Done Comments [...] filedocumented in this encounter Visit Diagnoses Diagnosis Pre-operative clearance - Primary Preoperative examination, unspecified documented in this encounter documented as of this encounter
--- OUTSIDE RECORDS SUMMARY | 2020-01-01 14:16 | XMS REPORT | Summary of Care ---
:1995 Author Organization [facility] Address [address] [place] [address] Care Team Providers Name Role Phone Pcp, Patient Does Not Have A Primary Care Provider +1-000-00 0-0000 Reason for Visit Reason Comments ROUTINE VISIT Encounter Details Date Type Department Care Team Description 11/13/2019 Routine [facility] Women's Verito Castaneda am, MD Normal in third trimester (Marita farah Dx); Visit Healthcare- [address] [place] [address] 38 weeks g estation of [place] [address] [place] [address] [place] [address] [phone] Allergies Active Allergy Reactions Severity Noted Date Comments Sulfa (Sulfonamide Antibiotics) Rash 0 documented as of this encounter (statuses as of 11/13/2019) Medications Medication Sig Dispensed Refills Start Date End Date Status vit Take by mouth. 0 A ctive calc,iron,folic ( VITAMIN ORAL) documented as of this encounter (statuses as of 11/13/2019) Active Problems Problem Noted Date Normal in third trimester 09/03/2019 History of loop electrical excision procedure (LEEP) 0 09/03/2019 38 weeks gestation of 09/03/2019 Estimated Date of Delivery Comments Yes 11/27/2019 Based on Patient Rep orted documented as of this encounter (statuses as of 11/13/2019) Immunizations Name Administration Dates Next Due TDAP [...] been in contact with No / Unsure 11/13/2019 8:10 AM CDT someone who was confirmed or suspected to have Coronavirus / COVID-19? documented as of this encounter Last Filed Vital Signs Vital Sign Reading Time Taken Comments Blood Pressure 98/68 11/13/2019 8:26 AM CDT Pulse 70 11/13/2019 8:26 AM CDT Temperature 36.8 C (98.3 F) 11/13/2019 8:26 AM CDT Respiratory Rate 18 11/13/2019 8:26 AM CDT Oxygen Saturation - - Inhaled Oxygen Concentration - - Weight 68.9 kg (152 lb) 11/13/2019 8:26 AM CDT Height 162.6 cm (5' 4") 11/13/2019 8:26 AM CDT Body Mass Index 26.09 11/13/2019 8:26 AM CDT documented in this encounter Progress Notes Verito Castaneda MD - 11/13/2019 8:30 AM CDT Chief complaint: Chief Complaint Patient presents with ROUTINE VISIT HPI Isela Ram is a 24 year old female @ 38w0d here for routine visit. Denies vaginal bleeding, LOF, dysuria, or PIH symptoms. + active FM. + irregular contractions Histories OB History Para Term AB Living [...] file Gets together: Not on file Attends shinto service: Not on file Active member of [...] headaches. Hematological: Does not bruise/bleed easily. BP 98/68 (BP Location: Left arm, Patient Position: Sitting, BP CUFF SIZE: Adult Medium) | Pulse 70| Temp 36.8 C (98.3 F) (Oral) | Resp 18 | Ht 5' 4" (1.626 m) | Wt 152 lb (68.9 kg) | LMP 02/28/2019 | BMI 26.09 kg/m Pregravid BMI: 21.62 Physical Exam Vitals reviewed. Constitutional: She is [...] See OB Summary Return to clinic in 4 weeks. Reviewed patient instructions and provided printed copy. Activity restrictions: As tolerated at 38w0d This visit did not involve counseling and coordination that comprised more than 50% of the visit time. Verito Castaneda MD 11/13/2019 9:01 AM documented in this encounter Miscellaneous Notes OB Summary Note - Verito Castaneda MD - 11/13/2019 8:30 AM CDTAge: 24 year old GA: 38w0d - Doing well - Irregular contractions: SVE cl/th/high. Labor precautions reviewed - Desires to change her induction date to 11/20/2019 @ 39 0/7 wks. Rescheduled to 11/20/2019 - Daily kick counts - RTC in 4-5 wks for PP visit documented in this encounter Plan of Treatment Date Type Specialty Care Team Description 12/18/2019 Routine Obstetrics & Sherry Calderon, Visit Gynecology [facility] [address] [address] [place] [address] Health Maintenance Due Date Last Done [...] Diagnosis Comme nts POCT URINALYSIS W/O Routine 11/13/2019 Normal in R esults for this SPECIFIC GRAVITY third trimester procedure are in the 38 weeks gestation of result s section. documented in this encounter Results POCT URINALYSIS W/O SPECIFIC GRAVITY (11/13/2019) Pathologist Sig nature POCT PH U n/a [...] Normal in third trimester - Pr imary 38 weeks gestation of state, incidental documented in this encounter documented as of this encounter
--- OUTSIDE RECORDS SUMMARY | 2020-01-01 14:16 | XMS REPORT | Summary of Care ---
:1995 Author Organization [facility] - [facility] Address [address] [place] [id number] Care Team Providers Name Role Phone Pcp, Patient Does Not Have A Primary Care Provider +[id number] Reason for Referral (Routine) Status Reason Specialty Diagnoses / Referred By Referred To Procedures Contact Contact New Request Diagnoses Normal in third trimester 39 weeks gestation of Encounter for elective induction of labor Liveborn , of luong , born in hospital by vaginal delivery Verito Castaneda MD Lam, Vien Cam, MD History of loop electrical excision procedure (LEEP) [address] [place] [address] Procedures DISCHARGE FOLLOW-UP: PRIVATE PHYSICIAN DR. GALINDO [address] [place], [place] [address] [address] [place] [address] Phone: Fax: Reason for Visit Auth/Cert Status Reason Specialty Diagnoses / Procedures Referred By C ontact Referred To Contact Obstetrics Diagnoses [facility] Labor And Delivery [address] [place] [address] 6 [phone] Phone: Fax: Encounter Details Date Type Department Care Team Description 11/20/2019 - Hospital Encounter ADC Labor and Verito Castaneda Livebo rn , of 11/21/2019 Delivery Unit MD luong [address] [place] [address] , [facility] [address] [place] [address] [address] delivery [phone] [place], [place] [id number] Allergies Active Allergy Reactions Severity Noted Date Comments Sulfa (Sulfonamide Antibiotics) Rash 0 documented as of this encounter (statuses as of 11/21/2019) Medications Medication Sig Dispensed Refills Start Date End Date Status vitamin Take 1 tablet 100 tablet 3 11/21/2019 Active w/FA by mouth tabletIndications daily. : Normal in third trimester, 39 weeks gestation of , Encounter for elective induction of labor, Liveborn , of luong , born in hospital by vaginal delivery, History of loop electrical excision procedure (LEEP) docusate calcium Take 1 capsule 60 capsule 1 11/21/2019 Active 240 mg by mouth once capsuleIndication daily as s: Normal needed for in Constipation. third trimester, 39 weeks gestation of , Encounter for elective induction of labor, Liveborn , of luong , born in hospital by vaginal delivery, History of loop electrical excision procedure (LEEP) ferrous sulfate Take 1 tablet 60 tablet 2 11/21/2019 Active 325 mg (65 mg by mouth 2 iron) (two) times tabletIndications daily. : Normal in third trimester, 39 weeks gestation of , Encounter for elective induction of labor, Liveborn , of luong , born in hospital by vaginal delivery, History of loop electrical excision procedure (LEEP) ibuprofen 600 mg Take 1 tablet 30 tablet 1 11/21/2019 Active tabletIndications by mouth every : Normal 6 (six) hours in as needed third trimester, (Pain). Take 39 weeks with food or gestation of milk. , Encounter for elective induction of labor, Liveborn infant, of luong , born in hospital by vaginal delivery, History of loop electrical excision procedure (LEEP) vit Take by 0 11/21/2019 Discon tinued calc,iron,folic mouth. ( VITAMIN ORAL) documented as of this encounter (statuses as of 11/21/2019) Active Problems Problem Noted Date Encounter for elective induction of labor 11/20/2019 Liveborn infant, of luong , born in hospi yrn by vaginal 11/20/2019 delivery Normal in third trimester 09/03/2019 History of loop electrical excision procedure (LEEP) 0 09/03/2019 39 weeks gestation of 09/03/2019 Comments Yes documented as of this encounter (statuses as of 11/21/2019) Immunizations Name Administration Dates Next Due TDAP 09/03/2019 09/02/2029 documented as of this encounter Social History Tobacco Use Types Packs/Day Years Used Date Former Smoker Quit: 09/03/19 15 Smokeless Tobacco: Never Used Alcohol Use Drinks/Week oz/Week Comments Not Currently Comments Yes Sex Assigned at Date Recorded Not on file COVID-19 Exposure Response Date Recorded In the last month, have you been in contact with No / Unsure 11/19/2019 1:32 PM CDT someone who was confirmed or suspected to have Coronavirus / COVID-19? documented as of this encounter Last Filed Vital Signs Vital Sign Reading Time Taken Comments Blood Pressure 116/70 11/21/2019 12:07 PM CDT Pulse 80 11/21/2019 12:07 PM CDT Temperature 37 C (98.6 F) 11/21/2019 12:07 PM CDT Respiratory Rate 18 11/21/2019 12:07 PM CDT Oxygen Saturation 100% 11/21/2019 12:07 PM CDT Inhaled Oxygen Concentration - - Weight 69.9 kg (154 lb) 11/20/2019 4:00 AM CDT Height 162.6 cm (5' 4") 11/20/2019 4:00 AM CDT Body Mass Index 26.43 11/20/2019 4:00 AM CDT documented in this encounter Discharge Summaries Verito Castaneda MD - 11/21/2019 7:32 AM CDT PP D/C SUMMARY ADMIT DATE: 11/20/2019 DISCHARGE DATE: 11/21/2019 ADMIT ATTENDING: Verito Castaneda MD ATTENDING MD AT DISCHARGE: Verito Castaneda MD REASON FOR ADMISSION: Elective induction at 39 wks FINAL DIAGNOSIS: S/P Vaginal Delivery SECONDARY DIAGNOSIS: Principal Problem: Liveborn , of luong , born in hospital by vaginal delivery (11/20/2019) POA: No Active Problems: Normal in third trimester (09/03/2019) POA: Yes 39 weeks gestation of (09/03/2019) POA: Yes Encounter for elective induction of labor (11/20/2019) POA: Yes PRINCIPAL PROCEDURE: Cephalic vaginal delivery ADDITIONAL PROCEDURES: None SIGNIFICANT LAB/X-RAYS: WBC (10*3/L) Date Value 11/21/2019 7.14 11/20/2019 7.28 11/07/2019 6.64 HGB (g/dL) Date Value 11/21/2019 10.5 (L) 11/20/2019 11.6 11/07/2019 11.8 HCT (%) Date Value 11/21/2019 31.7 (L) 11/20/2019 34.8 (L) 11/07/2019 37.0 PLT (10*3/L) Date Value 11/21/2019 143 (L) 11/20/2019 167 11/07/2019 163 (L) HOSPITAL COURSE: Briefly, Isela Ram is a 24 year old who was admitted to [facility] on 11/20/2019 for an elective induction at 39 wks. She underwent a Cephalic vaginal delivery. She was ambulating, tolerating a regular diet with good pain control on day # 1. The patient is medically stable for dischargehome to the care of her family with care instructions reviewed and with home meds prescribed. She isto follow-up in clinic as directed. CONDITION: Good DIET: regular ACTIVITY: Physical activities as tolerated. Pelvic rest x 6-8 weeks . DISCHARGE MEDICATIONS: Isela Ram Home Medication Instructions LEI:[id number] Printed on:11/21/19 3105 Medication Information docusate calcium 240 mg capsule Take 1 capsule by mouth once daily as needed for Constipation. ferrous sulfate 325 mg (65 mg iron) tablet Take 1 tablet by mouth 2 (two) times daily. ibuprofen 600 mg tablet Take 1 tablet by mouth every 6 (six) hours as needed (Pain). Take with food or milk. vitamin w/FA tablet Take 1 tablet by mouth daily. WOUND CARE: The patient was instructed to keep delivery lacerations (if any) clean and dry with soap and water in shower, dry gently with clean towel. She was instructed to return to ER if Temp > 101F, foul-smelling vaginal discharge, headache unresolved with pain medications, visual disturbances including double or blurry vision, seeing spots, upper abdominal pain, or vaginal bleeding greater than 1 pad perhour. Pelvic rest 4-6 weeks, and no heavy lifting. DISCHARGE: Home FOLLOW-UP APPOINTMENT: With [facility] for check. Verito Castaneda MD 11/21/2019 7:33 AM documented in this encounter Discharge Instructions Janneth Hensley RN - 11/21/2019RETURN TO HOSPITAL FOR ANY CONCERNS [facility] NEW PARENT OWNERS MANUAL GIVEN FOLLOW UP IN 4-6 WEEKS WITH YOUR DOCTOR SCHEDULED 12-18-2019 CALL [facility] [phone] TO SCHEDULE FOLLOW UP APPOINTMENT IF NEEDED DISCUSS CONTROL OPTIONS WITH YOUR DOCTOR IF NEEDED NO SEX, NO TAMPONS, NO DOUCHING NO SWIMMING OR TUB BATHS, TAKE SHOWERS INSTEAD NO HEAVY LIFTING, PULLING, OR PUSHING (>10LBS) DRINK AT LEAST EIGHT (8oz) GLASSES WATER DAILY EAT NUTRITIONALLY DENSE FOODS: FRESH FRUITS, VEGETABLES, AND PROTEINS AVOID FRIED, GREASY, FATTY, SUGARY, AND SPICY FOODS TAKE MEDICATIONS PRESCRIBED AND FOLLOW LABEL PRECAUTIONS & INSTRUCTIONS DO NOT DRIVE WHILE TAKING PAIN MEDICINE TAKE OVER THE COUNTER STOOL SOFTENERS TO HELP PREVENT CONSTIPATION [facility] REFERRAL HANDOUT GIVEN [facility] TEACHING HANDOUTS GIVEN: DVT, POST CARE, DEPRESSION, ANEMIA, , WHEN TO CALLTHE DOCTOR, COLACE, IRON, AND MOTRIN HELPFUL RESOURCES: SUPPORT INTERNATIONAL EXT 1- PATIENT HELP LINE NEPALI EXT 2- PATIENT HELP LINE BULGARIAN FREE ZHENG- LIFE LINE 4 MOMS For Patients ? All patients should call the [facility] [[email or web address]] at to determine the best way to receive caretelevisit (preferred when medically appropriate) or in-person appointment at the most appropriate location. ? Current visitation guidelines are available online. Resources ? [facility] [[email or web address]] for clinical appointments and 20/09 Nurse triage line: . ? [email or web address] Protecting Everyones Health Reminders for minimizing your risk of catching or spreading COVID-19: ? Avoid groups of 10 or more people and avoid people who are ill with respiratory symptoms. ? Thoroughly wash your hands frequently, for at least 20 seconds with soap and water. Any kind of soap will work. ? Use hand implement mechanic with minimum 60% alcohol content if soap and water are not available. ? Cough/sneeze into a tissue and dispose of it right away. If you do not have a tissue, cough/sneezeinto your elbow. ? Avoid touching your eyes, nose or mouthespecially with unwashed hands. ? Use disinfectant wipes or wheat cleaner on frequently touched or shared surfaces. ? Do not share dishes, cups/glasses, utensils or towels. ? STAY HOME IF YOU ARE SICK. Guiding Principles ? Protecting patients, students, employees, volunteers and the community ? Preventing exposures through social distancing and limiting non-clinical activity on our campuses ? Preserving access to the [facility] care in our hospitals and clinics ? Sustaining our financial stability for the long-term success of our mission. Thank you for your help in planning, preparing and responding to the COVID-19 public health threat. Sent by the Office of [employer], on behalf of President liya Prescott and the [facility] Health Incident Command leadership. AttachmentsThe following attachments cannot be sent through Care Everywhere.Deep Vein Thrombosis (DVT) (Israeli)When to Call the Healthcare Provider, After Delivery (Israeli)Vaginal , After a (Israeli) Depression, Understanding (Israeli) Problems - VIDEO (Israeli)Overview of - VIDEO (Israeli)Ibuprofen tablets and capsules (Israeli)Iron tablets, capsules, extended-release tablets (Israeli)Anemia, Iron-Deficiency (Adult) (Israeli)Docusate capsules (Israeli)documented in this encounter Progress Notes Keren Colmenares - 11/21/2019 2:11 PM CDTEncounter: Routine L&D rounding visit with new mom Moravian: Christianity Spiritual Assessment: ? No spiritual/emotional support needed/wanted at this time Spiritual Care Intervention: ? [facility] ? 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 : 1995 Primary Care Physician: PATIENT DOES NOT HAVE A PCP CHIEF COMPLAINT Elective induction HISTORY OF PRESENT ILLNESS Isela Ram is a 24 year old female @ 39w0d +FM. No VB, LOF, or CTX. No pre-eclampsia sx or other complaints. PAST OBSTETRIC HISTORY OB History Para Term AB Living 2 1 1 1 SAB TAB Ectopic Multiple Live Births 1 # Outcome Date GA Lbr Neal/2nd Weight Sex Delivery Anes PTL Lv 2 Current 1 Term 05/16/18 40w6d 3572 g F NORMAL SPONT EPI N GIANCARLO PAST MEDICAL HISTORY Problem list: Patient Active Problem List Diagnosis Date Noted Encounter for elective induction of labor 11/20/2019 Normal in third trimester 09/03/2019 History of loop electrical excision procedure (LEEP) 09/03/2019 39 weeks gestation of 09/03/2019 Operations: Past Surgical History: Procedure Laterality Date COLPOSCOPY,CERVIX W/ADJ VAG,W/LOOP BX 06/2018 OVARIAN CYSTECTOMY 2012 TOOTH EXTRACTION 2019 wisdom teeth Past Medical History: Diagnosis Date History of loop electrical excision procedure (LEEP) 06/2018 History of ovarian cyst Hypoglycemia Pap smear abnormality of cervix 2019 hx of 2018 ; Colpo with LEEP CURRENT HEALTH STATUS Medications: Current Facility-Administered Medications Medication Dose Route Frequency Last Rate Last Dose D5W-LR IV infusion 1,000 mL 1,000 mL IV Infusion CONTINUOUS 125 mL/hr at 11/20/19 0415 1,000 mLat 11/20/19 0415 FENTanyl PF (SUBLIMAZE (PF)) injection 100 mcg 100 mcg Slow IV Push Q1HPRN lactated ringers IV infusion 500 mL 500 mL IV Infusion PRN - SEE INSTRUCTIONS lidocaine 1% (PF) (XYLOCAINE) injection 0.3 mL 0.3 mL Infiltration PRN - SEE INSTRUCTIONS lidocaine 1% (XYLOCAINE) 10 mg/mL (1 %) injection 50 mL 50 mL Infiltration PRN - SEE INSTRUCTIONS LR 1000 mL + oxytocin 20 units IV Solution 2-40 leticia-units/min IV Infusion TITRATE 18 mL/hr at11/20/19 0640 6 leticia-units/min at 11/20/19 0640 proMETHazine (PHENERGAN) 25 mg in NaCl 0.9% (NS) 50 mL IV piggyback 25 mg IV Piggyback Q4HPRN sodium citrate-citric acid (BICITRA) 500-334 mg/5 mL solution 30 mL 30 mL Oral PRE-PROCEDURE ONCE sodium citrate-citric acid (BICITRA) 500-334 mg/5 mL solution 30 mL 30 mL Oral PRE-PROCEDURE ONCE Allergies and drug reactions: Sulfa (sulfonamide antibiotics) HOME MEDICATIONS Medications Prior to Admission Medication Sig Dispense Refill Last Dose vit calc,iron,folic ( VITAMIN ORAL) Take by mouth. Taking SOCIAL HISTORY Tobacco History: Social History Tobacco Use Smoking Status Former Smoker Quit date: 09/02/2014 Years since quittin.2 Smokeless Tobacco Never Used Drug History: Social History Substance and Sexual Activity Drug Use Never Comment: No history of substence abuse of any kind Alcohol History: Social History Substance and Sexual Activity Alcohol Use Not Currently FAMILY HISTORY Family History Problem Relation Age of Onset Hypertension Father Diabetes Father Arthritis NoFHx Asthma NoFHx defects NoFHx Breast Cancer NoFHx Colon Cancer NoFHx Ovarian Cancer NoFHx Uterine Cancer NoFHx Cancer NoFHx Depression NoFHx Genetic NoFHx Heart NoFHx High cholesterol NoFHx Mental retardation NoFHx Neurological NoFHx Osteoporosis NoFHx Psychiatry NoFHx Other - see comments NoFHx REVIEW OF SYSTEMS General: negative Constitutional: negative Eyes: negative ENT/Mouth: negative Cardiovascular: negative Respiratory: negative Gastrointestinal:negative Genitourinary: negative Musculoskeletal: negative Skin/breast: negative Neurological: negative Psychiatric: negative Endocrine: negative Hemat/Lymph: negative Allergic/Immuno:none VITAL SIGNS BP: (101-115)/(59-76) Temp: [36.6 C (97.9 F)] Temp source: Oral (11/19 0600) Pulse: [57-83] Resp: [20] SpO2: [100 %] Height: [162.6 cm (5' 4")] Weight: [69.9 kg (154 lb)] BMI (calculated): [26.43] PHYSICAL EXAMINATIONS Gen: alert and oriented, well appearing, no distress CV: RRR, normal S1/S2, no m/r/g Resp: normal work of breathing, lungs CTAB Abd: gravid, soft, NTTP Ext: no calf tenderness or edema : SVE 1/50/high, AROM (moderate amount of clear fluid) REVIEW OF LABORATORY, PATHOLOGY, AND RADIOLOGY DATA Lab results: Type & Screen HIV Hep B Syphilis Chlamydia ABO & RH Date Value Ref Range Status 11/20/2019 A Positive Final Comment: Performed at [facility] Laboratory [facility] Blood Bank [address] [place], [place] [id number] Toll Free: [phone] CLIA No. [id number] No results found for: HIVMULTIPLEX No components found for: HBSHBSAG No results found for: SYPIGG C. trachomatis Nucleic Acid Date Value Ref Range Status 11/02/2019 Negative Negative Final IAT Date Value Ref Range Status 11/20/2019 Negative Final Comment: Performed at [facility] Laboratory Services - [facility] Blood Bank [address] [place] [phone] Toll Free: [phone] CLIA No. [id number] Varicella Rubella Glucose Group B Strep CBC No results found for: VZVIGG No results found for: RUBG GLUC 1 HR Date Value Ref Range Status 10/09/2019 150 120 - 170 mg/dL Final No results found for: CGBS HGB Date Value Ref Range Status 11/20/2019 11.6 11.6 - 15.0 g/dL Final HCT Date Value Ref Range Status 11/20/2019 34.8 (L) 35.7 - 45.2 % Final PLT Date Value Ref Range Status 11/20/2019 167 166 - 358 10*3/L Final Active Hospital Problems Diagnosis Date Noted Encounter for elective induction of labor 11/20/2019 39 weeks gestation of 09/03/2019 Normal in third trimester 09/03/2019 Resolved Hospital Problems No resolved problems to display. Present on Admission: 39 weeks gestation of Normal in third trimester Encounter for elective induction of labor ASSESSMENT AND PLAN Isela Ram is a 24 year old at 39w0d who presents for an elective induction. Induction - Pit per protocol. S/p AROM - cephalic confirmed - GBS neg - COVID test neg - Roger [address] Castaneda, please see OB Summary for more details Verito Castaneda MD 11/20/2019 9:45 AM documented in this encounter Miscellaneous Notes Care Plan - Loreto Bates RN - 11/21/2019 9:58 AM CDT Problem: Discharge Planning - Goal: Absence of venous thromboembolism Outcome: Progressing as expected Goal: Adequate for discharge Outcome: Progressing as expected Goal: Mood stable Outcome: Progressing as expected Blair Crow RN - 11/21/2019 5:54 AM CDT Problem: Falls, Risk of Goal: Absence of falls 11/21/2019 0553 by Blair Redmond RN Outcome: Progressing as expected 11/21/2019 0552 by Blair Redmond RN Outcome: Progressing as expected 11/21/2019 0542 by Blair Redmond RN Outcome: Progressing as expected Problem: Discharge Planning - Goal: Absence of venous thromboembolism 11/21/2019 0553 by Blair Redmond RN Outcome: Progressing as expected 11/21/2019 0552 by Blair Redmond RN Outcome: Progressing as expected 11/21/2019 0542 by Blair Redmond RN Outcome: Progressing as expected Goal: Adequate for discharge 11/21/2019 0553 by Blair Redmond RN Outcome: Progressing as expected 11/21/2019 0552 by Blair Redmond RN Outcome: Progressing as expected 11/21/2019 0542 by Blair Redmond RN Outcome: Progressing as expected Goal: Mood stable 11/21/2019 0553 by Blair Redmond RN Outcome: Progressing as expected 11/21/2019 0552 by Blair Redmond RN Outcome: Progressing as expected 11/21/2019 0542 by Blair Redmond RN Outcome: Progressing as expected Problem: Infection Risk Goal: Absence of infection Outcome: Progressing as expected Blair Crow RN - 11/21/2019 5:42 AM CDT Problem: Falls, Risk of Goal: Absence of falls Outcome: Progressing as expected Problem: Discharge Planning - Goal: Absence of venous thromboembolism Outcome: Progressing as expected Goal: Adequate for discharge Outcome: Progressing as expected Goal: Mood stable Outcome: Progressing as expected are Plan - Coleen Garcia RN - 11/20/2019 6:53 PM CDT Problem: Intrapartum process (including labor pain) Goal: Absence of or reduction of complications of labor 11/20/20191852 by Coleen Garcia RN Outcome: Change in patient condition/care plan 11/20/2019811 by Coleen Garcia RN Outcome: Progressing as expected Goal: Able to cope with pain 11/20/20191852 by Coleen Garcia RN Outcome: Change in patient condition/care plan 11/20/2019811 by Coleen Garcia RN Outcome: Progressing as expected Goal: Adequate to move to next level of care 11/20/20191852 by Coleen Garcia RN Outcome: Change in patient condition/care plan 11/20/2019811 by Coleen Garcia RN Outcome: Progressing as expected Goal: Reduction in pain sensation 11/20/20191852 by Coleen Garcia RN Outcome: Change in patient condition/care plan 11/20/2019811 by Coleen Garcia RN Outcome: Progressing as expected Problem: Falls, Risk of Goal: Absence of falls Outcome: Progressing as expected &D Delivery Note - Verito Castaneda MD - 11/20/2019 5:09 PM CDTDELIVERY BY SPONTANEOUS VAGINAL DELIVERY Delivery Date: 11/20/2019 Delivery Time: 2:34 PM Delivery Summary Isela Ram is a 24 year old female @ 39w0d The patient was admitted to the Labor & Delivery unit for an elective induction at 39 weeks. Delivery Physician: Verito Castaneda MD Intrapartum Anesthesia/Analgesia: Epidural Mode of Delivery: Delivery of luong fetus with cephalic presentation Fetus Spontaneous vaginal delivery of head with cephalic position, occipital anterior. As the head crowned and distended the perineum, no episiotomy was performed. A blue towel was used to protect theperineum as the head crowned and delivered. The other hand was used to exert pressure on the occiput to control the delivery of the head. The perineum was pushed with a towel-draped hand as the head and mouth was delivered over the perineum. The head was allowed to rotate externally to achieve natural body posture. Examination of neck revealed nuchal cord, which was Umbilical cord not reducted - body delivered through umbilical cord. The shoulder was delivered by gentle downward traction applied to head and downward traction for the delivery of anterior shoulder. This was followed by upward traction with delivery of posterior shoulder and body. After the delivery of , bulb suction was performed from ororpharynx and nostril with removal of clear amniotic fluid. A normal, male was delivered. The umbilical cord was milked towards the fetus, clamped, cut and the infant was handed off the field to the circulating nurse. The pedi RN were at the stand to evaluate the new born. Placenta Placenta was delivered spontaneously while the abdominal hand lifted the uterus cephalad and other hand keeping the umbilical cord slightly taut. Laceration: None Laceration Repair: No laceration repair needed. Fourth Stage Fourth stage of labor was managed by uterine massage with abdominal hand and infusion 20 units of pitocin mixed with intravenous fluid. QBL: see I/O's Complications: None Apgars: 8/9 Weight: 3440 grams Verito Castaneda MD 11/20/2019 5:11 PM TCelizabeth Zheng - Coleen Garcia RN - 11/20/2019 8:12 AM CDT Problem: Intrapartum process (including labor pain) Goal: Absence of or reduction of complications of labor Outcome: Progressing as expected Goal: Able to cope with pain Outcome: Progressing as expected Goal: Adequate to move to next level of care Outcome: Progressing as expected Goal: Reduction in pain sensation Outcome: Progressing as expected Problem: Falls, Risk of Goal: Absence of falls Outcome: Progressing as expected Kenisha Carvalho RN - 11/20/2019 4:20 AM CDT Problem: Intrapartum process (including labor pain) Goal: Absence of or reduction of complications of labor Outcome: Progressing as expected Goal: Able to cope with pain Outcome: Progressing as expected Goal: Adequate to move to next level of care Outcome: Progressing as expected Goal: Reduction in pain sensation Outcome: Progressing as expected Problem: Falls, Risk of Goal: Absence of falls Outcome: Progressing as expected documented in this encounter Plan of Treatment Date Type Specialty Care Team Description 12/18/2019 Routine Obstetrics & Sherry Calderon, Visit Gynecology [address] [phone] Health Maintenance Due Date Last [...] encounter Procedures Procedure Name Priority Date/Time Associated Comments Diagnosis CBC WITH DIFF Routine 11/21/2019 3:47 AM Results for this CDT procedure are i n the results section. VENOUS CORD GAS Routine 11/20/2019 2:44 PM Resul ts for this CDT procedure are i n the results section. ARTERIAL CORD GAS Routine 11/20/2019 2:44 PM Res ults for this CDT procedure are i n the results section. HIV 1/2 AG-AB WITH Routine 11/20/2019 4:13 AM Re sults for this REFLEX CDT procedure are i n the results section. ADC OR BEATRIS ONLY JULIA 11/20/2019 4:11 AM R esults for this - RPR CDT procedure are i n the results section. HEPATITIS B SURFACE JULIA 11/20/2019 4:11 AM R esults for this ANTIGEN CDT procedure are i n the results section. CBC WITH DIFF JULIA 11/20/2019 4:11 AM Results for this CDT procedure are i n the results section. RHO (D) IMMUNE Routine 11/20/2019 4:05 AM Result s for this GLOBULIN CDT procedure are i n the results section. HB ABO GROUPING JULIA 11/20/2019 4:05 AM Resul ts for this CDT procedure are i n the results section. CONSENT/REFUSAL FOR Routine 11/19/2019 1:31 PM DIAGNOSIS AND CDT TREATMENT ASSIGNMENT OF Routine 11/19/2019 1:30 PM BENEFITS CDT CONSENT/REFUSAL FOR Routine 11/13/2019 9:13 AM DIAGNOSIS AND CDT TREATMENT ASSIGNMENT OF Routine 11/13/2019 9:13 AM BENEFITS CDT documented in this encounter Results CBC with Differential (11/21/2019 3:47 AM CDT) Pathologist [facility] WBC 7.14 4.30 - 11.10 [facility] 10*3/L [facility] RBC 3.73 (L) 3.93 - 5.25 [facility] 10*6/L [facility] HGB 10.5 (L) 11.6 - 15.0 [facility] g/dL [facility] HCT 31.7 (L) 35.7 - 45.2 % [facility] MCV 85.0 80.6 - 95.5 fL [facility] MCH 28.2 25.9 - 32.8 pg [facility] MCHC 33.1 31.6 - 35.1 [facility] g/dL [facility] RDW-SD 37.6 (L) 39.0 - 49.9 fL [facility] RDW-CV 12.5 12.0 - 15.5 % [facility] PLT 143 (L) 166 - 358 [facility] 10*3/L [facility] MPV 12.3 9.5 - 12.9 fL [facility] NRBC/100 WBC 0.0 0.0 - 10.0 /100 [facility] WBCs [facility] NRBC x10^3 <0.01 10*3/L [facility] GRAN MAT (NEUT) % 62.9 % [facility] IMM GRAN % 0.40 % [facility] LYMPH % 27.6 % [facility] MONO % 7.1 % [facility] EOS % 1.7 % [facility] BASO % 0.3 % [facility] GRAN MAT x10^3(ANC) 4.49 1.88 - 7.09 [facility] 10*3/uL [facility] IMM GRAN x10^3 0.03 0.00 - 0.06 [facility] 10*3/uL [facility] LYMPH x10^3 1.97 1.32 - 3.29 [facility] 10*3/uL [facility] MONO x10^3 0.51 0.33 - 0.92 [facility] 10*3/uL [facility] EOS x10^3 0.12 0.03 - 0.39 [facility] 10*3/uL [facility] BASO x10^3 <0.03 0.01 - 0.[address]/uL [facility] Specimen Blood - ARM, RIGHT Performing Organization Address [facility] Phone Number [facility] CLIA: [id number] [place], [place] [id number] LABORATORY [address] Venous Cord Gas (11/20/2019 2:44 PM CDT) Pathologist Sig nature VENOUS BASE EXCESS, -2.2 mEq/L [facility] VENOUS PH, CORD 7.37 7.25 - 7.45 [facility] VENOUS PC02, CORD 40 27 - 49 mmHg [facility] VENOUS PO2, CORD 29 17 - 41 mmHg [facility] VENOUS BICARBONATE, 23 12 - 29 mEq/L [facility] Specimen Blood - CORD Performing Organization Address [facility] Phone Number [facility] CLIA: [id number] [place], [place] [address] LABORATORY [address] Arterial Cord Gas (11/20/2019 2:44 PM CDT) Pathologist Sig nature BASE EXCESS, CORD -2.9 mEq/L [facility] AC PH, CORD (BEAKER) 7.37 7.18 - 7.38 [facility] PC02, CORD 40 32 - 66 mmHg [facility] PO2, CORD 28 10 - 30 mmHg [facility] BICARBONATE, CORD 22 17 - 27 mEq/L [facility] Specimen Blood - CORD Performing Organization Address [facility]/State/Zipcode Phone Number [facility] CLIA: [id number] [place] [address] HIV 1/2 AG-AB WITH REFLEX (11/20/2019 4:13 AM CDT) Pathologist Sig nature HIV 1/2 Ag-Ab with Negative Negative [facility] Reflex [facility]ITAL [facility] HIV Semi-quantitative 0.14 [facility] Specimen Blood - WRIST, LEFT Narrative Performed At Non-reactive for HIV-1 antigen and HIV-1/HIV-2 [facility] antibodies. No laboratory evidence of HIV infection. Repeat in 2-4 weeks if acute HIV infection is suspected. Performing Organization Address City/State/Zipcode Phone Number [facility] CLIA: [id number] [place] [address] CBC with Differential (11/20/2019 4:11 AM CDT) Pathologist Sig formerly [facility] WBC 7.28 4.30 - 11.10 [facility] 10*3/L [facility] RBC 4.17 3.93 - 5.25 [facility] 10*6/L [facility] HGB 11.6 11.6 - 15.0 [facility] g/dL [facility] HCT 34.8 (L) 35.7 - 45.2 % [facility] MCV 83.5 80.6 - 95.5 fL [facility] MCH 27.8 25.9 - 32.8 pg [facility] MCHC 33.3 31.6 - 35.1 [facility] g/dL [facility] RDW-SD 37.2 (L) 39.0 - 49.9 fL [facility] RDW-CV 12.4 12.0 - 15.5 % [facility] PLT 167 166 - 358 [facility] 10*3/L [facility] MPV 12.4 9.5 - 12.9 fL [facility] NRBC/100 WBC 0.0 0.0 - 10.0 /100 [facility] WBCs [facility] NRBC x10^3 <0.01 10*3/L [facility] GRAN MAT (NEUT) % 62.4 % [facility] IMM GRAN % 0.40 % [facility] LYMPH % 27.1 % [facility] MONO % 8.0 % [facility] EOS % 1.6 % [facility] BASO % 0.5 % [facility] GRAN MAT x10^3(ANC) 4.54 1.88 - 7.09 [facility] 10*3/uL [facility]ITAL [facility] IMM GRAN x10^3 0.03 0.00 - 0.06 [facility] 10*3/uL [facility] LYMPH x10^3 1.97 1.32 - 3.29 [facility] 10*3/uL [facility] MONO x10^3 0.58 0.33 - 0.92 [facility] 10*3/uL [facility] EOS x10^3 0.12 0.03 - 0.39 [facility] 10*3/uL [facility] BASO x10^3 0.04 0.01 - 0.[address]uL [facility] Specimen Blood - WRIST, LEFT Performing Organization Address City/[facility]/Zipcode Phone Number [facility] CLIA: [id number] [place] [address] [place] [address] ADC OR BEATRIS ONLY - RPR (11/20/2019 4:11 AM CDT) Pathologist Sig nature RPR (Qualitative) Nonreactive Nonreactive [facility] Specimen Blood - WRIST, LEFT Performing Organization Address City/[facility]/Zipcode Phone Number [facility] CLIA: [id number] [place] [address] LABORATORY [address] [facility] Hepatitis B Surface Antigen (11/20/2019 4:11 AM CDT) Pathologist Sig nature HBsAg Negative Negative [facility] HBsAg 0.05 [facility] Semi-Quantitative SERVICES Specimen Blood - WRIST, LEFT Performing Organization Address City/[facility]/Zipcode Phone Number [facility] CLIA: [id number] [place] [address] [place] [address] RHO (D) IMMUNE GLOBULIN (11/20/2019 4:05 AM CDT) Pathologist Sig nature RHIG CANDIDATE? No- see comment LAB Comment: Patient is not a candidate for RhIg- Patient is Rh Pos itive. Performed at [facility] Laboratory Services - [facility] Blood Bank [address] [place] [phone] Toll Free: [phone] CLIA No. [id number] Specimen Blood - VENOUS Performing Organization Address City/State/Zipcode Phone Number [facility] Type and Screen - ONCE JULIA (11/20/2019 4:05 AM CDT) Pathologist Sig nature ABO & RH A Positive LAB Comment: Performed at [facility] Laboratory Services - [facility] Blood Bank [address] [place] [phone] Toll Free: [phone] CLIA No. [id number] IAT Negative LAB Comment: Performed at [facility] Laboratory Services - [facility] Blood Bank [address] [place] [phone] Toll Free: [phone] CLIA No. [id number] Specimen Blood - VENOUS Performing Organization Address City/[facility]/Zipcode Phone Number [facility] documented in this encounter Visit Diagnoses Diagnosis Liveborn , of luong , born in hospital by vaginal delivery - Primary Normal in third trimester 39 weeks gestation of state, incidental Encounter for elective induction of labo r History of loop electrical excision proc edure (LEEP) documented in this encounter Administered Medications Medication Order MAR Action Action Date Dose Rate Site HYDROcodone-acetaminophen Given 11/21/2019 1:16 AM CDT 1 tablet (NORCO 5) 5-325 mg tablet 1 tablet 1 tablet, Oral, Q6HPRN, Starting Tue11/20/19 at 1707, Until Discontinued, Routine, Pain (scale 7-10) Given 11/20/2019 7:42 PM CDT 1 tablet LR 1000 mL + oxytocin 20 units IV New Bag 11/20/2019 2:48 PM CDT 125 mL/hr Solution at 125 mL/hr, IV Infusion, CONTINUOUS, Starting Tue11/20/19 at 1730, Until Discontinued, JULIA vitamin w/FA (PRENATABS RX) Given 11/21/2019 8:31 AM C DT 1 tablet tablet 1 tablet 1 tablet, Oral, DAILY, First dose on Tue11/21/19 at 0900, Until Discontinued, Routine Medication Order MAR Action Action Date Dose Rate Site D5W-LR IV infusion 1,000 mL New Bag 11/20/2019 11:38 AM CDT 1,000 mL 125 mL/hr at 125 mL/hr, IV Infusion, CONTINUOUS, Starting e 11/20/19 at 0400, Until Tue11/20/19 at 1707, Routine New Bag 11/20/2019 4:15 AM CDT 1,000 mL 125 mL/hr lactated ringers IV infusion New Bag 11/20/2019 10:30 AM CDT 1,000 mL 999 mL/hr 1,000 mL at 999 mL/hr, 1,000 mL, IV Infusion, ONCE, 1 dose, e 11/20/19 at 1045, Routine LR 1000 mL + oxytocin Rate Change 11/20/2019 12:50 PM 16 leticia-uni ts/min 48 mL/hr 20 units IV Solution CDT at 6-120 mL/hr, IV Infusion, TITRATE, Starting Tue11/20/19 at 0353, Until Tue11/20/19 at 1707, JULIA Rate Change 11/20/2019 12:04 PM CDT 14 leticia-units/min 42 mL/hr Rate Change 11/20/2019 11:40 AM CDT 12 leticia-units/min 36 mL/hr sodium citrate-citric acid (BICITRA) 500-334 Given 10:39 AM CDT 30 mL mg/5 mL solution 30 mL 30 mL, Oral, PRE-PROCEDURE ONCE, 1 dose, Starting Tue11/20/19 at 0352, Until Tue11/20/19 at 1039, Routine, Surgery/Procedure documented in this encounter documented as of this encounter
[2020-01-01] MEDS ORDERED: IBUPROFEN 200 MG TAB PO ONE (15:19)
[2020-01-01] MEDS ORDERED: IBUPROFEN 400 MG TAB ONE (15:20)
[2020-01-01 16:11] LABS: Absolute Lymphocytes (CBC) 0.5 K/uL (0.7-4.9); Basophils % 0.2 % (0-1.3); Hematocrit 37.7 % (36.0-45.0); Lymphocytes % 7.9 % (15.3-44.8); MPV 9.2 fL (7.6-11.3); RBC Red Blood Cell Count 4.61 M/uL (3.86-4.86)
[2020-01-01 16:19] LABS: Potassium 3.6 mmol/L (3.5-5.1)
[2020-01-01] MEDS ORDERED: NA CHLORIDE 0.9% 1,000 ML ONE (16:43)
[2020-01-01 17:04] LABS: Urine Mucus 1+ /HPF (NONE SEEN)
[2020-01-01 17:05] LABS: Urine Bacteria <20 /HPF (<20); Urine Culture Reflex Order NOT NEEDED; Urine RBC NONE SEEN /HPF (NONE SEEN)
[2020-01-01 17:31] LABS: Urine Blood NEGATIVE (NEG); Urine Glucose NEGATIVE (NEG); Urine Protein NEGATIVE (NEG)
--- NOTE | 2020-01-01 17:51 | ER ---
Nurse's Notes [facility] Name: Isela Ram Age: 24 yrs Sex: Female : 1995 Arrival Date: 01/01/2020 Time: 13:38 Bed 18 Private MD: Ran Barrera Diagnosis: Fever, unspecified;Nonpurulent mastitis associated with Presentation: 12/31 13:57 Chief complaint: Patient states: Chills, fever, body aches since last night at 1700. ll1 Covid test negative yesterday. Noticed right breast pain and tenderness for 2 days. She is breast feeding. Coronavirus screen: Client denies travel out of the [place] in the last 14 days. fatigue, fever, Client presents with at least one sign or symptom that may indicate coronavirus-19. Standard/surgical mask placed on the client. The client reports previous COVID testing was negative. Ebola Screen: Patient denies travel to an Ebola-affected area in the 21 days before illness onset. Initial Sepsis Screen: Does the patient meet any 2 criteria? HR > 90 bpm. No. Patient's initial sepsis screen is negative. Does the patient have a suspected source of infection? Yes: Other: breast pain and tenderness. Risk Assessment: Do you want to hurt yourself or someone else? Patient reports no desire to harm self or others. Onset of symptoms was December 31, 2019. 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 - Social history:: Smoking status: Patient denies any tobacco usage or history of. Screenin:18 Abuse screen: Denies threats or abuse. Denies injuries from another. Nutritional ph screening: No deficits noted. Tuberculosis screening: No symptoms or risk factors identified. Fall Risk None identified. Assessment: 15:30 General: Appears in no apparent distress. comfortable, Behavior is calm, cooperative, ph appropriate for age, Reports chills for fever for 1-2 days. Pain: Complains of pain in right breast and abdomen. Neuro: Level of Consciousness is awake, alert, obeys commands, Oriented to person, place, time, situation. Cardiovascular: Capillary refill < 3 seconds in bilateral fingers Patient's skin is warm and dry. Respiratory: Airway is patent Respiratory effort is even, unlabored. Derm: Skin is intact, Skin is pink, warm \T\ dry. Musculoskeletal: Circulation, motion, and sensation intact. Range of motion: intact in all extremities. 15:30 GI: Reports lower abdominal pain. ph 16:30 Reassessment: Patient appears in no apparent distress at this time. Patient and/or ph family updated on plan of care and expected duration. Pain level reassessed. Patient is alert, oriented x 3, equal unlabored respirations, skin warm/dry/pink. 17:30 Reassessment: Patient appears in no apparent distress at this time. Patient and/or ph family updated on plan of care and expected duration. Pain level reassessed. Patient is alert, oriented x 3, equal unlabored respirations, skin warm/dry/pink. Vital Signs: 13:57 BP 104 / 67; Pulse 97; Resp 17; Temp 99.7; Pulse Ox 98% ; Weight 63.5 kg; Height 5 ft. ll1 4 in. (162.56 cm); Pain 9/10; 15:10 Temp 100.7; ll1 16:25 BP 107 / 60; Pulse 89; Resp 18; Temp 99.6(O); Pulse Ox 100% on R/A; ph 17:30 BP 108 / 62; Pulse 80; Resp 16; Pulse Ox 100% on R/A; ph 13:57 Body Mass Index 24.03 (63.50 kg, 162.56 cm) ll1 ED Course: 13:38 Patient arrived in ED. ag5 13:38 Ran Barrera DO is Private Physician. ag5 13:59 Triage completed. ll1 13:59 Deirdre Martinez [facility]-C [facility] kb 13:59 Khari Slaughter MD is Attending Physician. kb 13:59 Arm band placed on. ll1 15:27 Ellen Brand, SAMIA is Primary Nurse. ph 15:48 Initial lab(s) drawn, by me, sent to lab. Flu and/or RSV swab sent to lab. Strep swab jp3 sent to lab. Inserted saline lock: 20 gauge in right antecubital area, using aseptic technique. Blood collected. Patient maintains SpO2 saturation greater than 95% on room air. 15:51 Bed in low position. Call light in reach. Pulse ox on. NIBP on. jp3 17:50 Transvaginal Study (Probe) In Process Unspecified. EDMS 18:05 No provider procedures requiring assistance completed. IV discontinued, intact, ph bleeding controlled, No redness/swelling at site. Pressure dressing applied. Administered Medications: 15:10 Drug: Motrin 600 mg Route: PO; ll1 16:25 Follow up: Response: No adverse reaction; Temperature is decreased ph 17:08 Drug: NS 0.9% 1000 ml Route: IV; Rate: 1000 ml; Site: right antecubital; ph 18:00 Follow up: Response: No adverse reaction; IV Status: Completed infusion zb Outcome: 17:51 Discharge ordered by . kb 18:05 Discharged to home ambulatory, with family. ph 18:05 Condition: stable 18:05 Discharge instructions given to patient, Instructed on discharge instructions, follow up and referral plans. medication usage, Demonstrated understanding of instructions, follow-up care, medications, Prescriptions given X 1. 18:06 Patient left the ED. ph Signatures: Dispatcher [employer] EDDeirdre Sweeney, METAL LOADER-C METAL LOADER-Ellen Harrison RN RN Terry Vieyra jp3 Jenni Mendoza ag5 Mack Kiran RN RN ll1 Carmella Walters RN RN zb Corrections: (The following items were deleted from the chart) 16:20 15:30 Pain: Complains of pain in right breast ph ph
--- NOTE | 2020-01-01 18:07 | EDPHYS ---
Physician Documentation [facility] Name: Isela Ram Age: 24 yrs Sex: Female : 1995 Arrival Date: 01/01/2020 Time: 13:38 Bed 18 Private MD: Alfonso Barrerah ED Physician Khari Slaughter HPI: 12/31 16:11 This 24 yrs old Female presents to ER via Ambulatory with complaints of Fever.kb 16:11 The patient reports fever, that was measured at 104 degrees Fahrenheit, with an kb emergency department temperature of 100.7 degrees Fahrenheit. Onset: The symptoms/episode began/occurred yesterday, at 17:00. Modifying factors: there are no obvious modifying factors. Associated signs and symptoms: Pertinent positives: abdominal pain, headache, myalgias, breast tenderness, chills, vaginal discharge. Severity of symptoms: At their worst the symptoms were moderate in the emergency department the symptoms are unchanged. The patient has not experienced similar symptoms in the past. The patient has not recently seen a physician. Pt reports fever started at 1700 yesterday. States she has also had LLQ pain, right breast tenderness, headache and body aches that started at the same time. Reports vaginal discharge for 4 days. Pt is 6 weeks , vaginal delivery without complications. Induced at 0700 and delivered at 1430. 4 week follow up was normal. Pt is . No redness or warmth noted to breast. . 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 - Social history:: Smoking status: Patient denies any tobacco usage or history of. ROS: 16:09 Cardiovascular: Negative for chest pain, palpitations, and edema, Respiratory: Negative kb for shortness of breath, cough, wheezing, and pleuritic chest pain, Back: Negative for injury and pain, MS/Extremity: Negative for injury and deformity, Skin: Negative for injury, rash, and discoloration. 16:09 Constitutional: Positive for body aches, chills, fever, Negative for fatigue, malaise, poor PO intake, weight loss. 16:09 Abdomen/GI: Positive for abdominal pain, Negative for nausea, vomiting, and diarrhea. 16:09 : Positive for vaginal discharge. Exam: 16:09 Constitutional: This is a well developed, well nourished patient who is awake, alert, kb and in no acute distress. Head/Face: Normocephalic, atraumatic. ENT: Nares patent. No nasal discharge, no septal abnormalities noted. Tympanic membranes are normal and external auditory canals are clear. Oropharynx with no redness, swelling, or masses, exudates, or evidence of obstruction, uvula midline. Mucous membranes moist. Neck: Trachea midline, no thyromegaly or masses palpated, and no cervical lymphadenopathy. Supple, full range of motion without nuchal rigidity, or vertebral point tenderness. No Meningismus. Chest/axilla: Normal chest wall appearance and motion. Nontender with no deformity. No lesions are appreciated. Cardiovascular: Regular rate and rhythm with a normal S1 and S2. No gallops, murmurs, or rubs. Normal PMI, no JVD. No pulse deficits. Respiratory: Lungs have equal breath sounds bilaterally, clear to auscultation and percussion. No rales, rhonchi or wheezes noted. No increased work of breathing, no retractions or nasal flaring. Back: No spinal tenderness. No costovertebral tenderness. Full range of motion. Skin: Warm, dry with normal turgor. Normal color with no rashes, no lesions, and no evidence of cellulitis. MS/ Extremity: Pulses equal, no cyanosis. Neurovascular intact. Full, normal range of motion. Neuro: Awake and alert, GCS 15, oriented to person, place, time, and situation. Cranial nerves II-XII grossly intact. Motor strength 5/5 in all extremities. Sensory grossly intact. Cerebellar exam normal. Normal gait. 16:09 Abdomen/GI: Inspection: abdomen appears normal, Bowel sounds: normal, in all quadrants, Palpation: soft, in all quadrants, mild abdominal tenderness, in the left lower quadrant. 16:10 Chest/axilla: Breasts: tenderness, that is moderate, of the right breast. kb Vital Signs: 13:57 BP 104 / 67; Pulse 97; Resp 17; Temp 99.7; Pulse Ox 98% ; Weight 63.5 kg; Height 5 ft. ll1 4 in. (162.56 cm); Pain 9/10; 15:10 Temp 100.7; ll1 16:25 BP 107 / 60; Pulse 89; Resp 18; Temp 99.6(O); Pulse Ox 100% on R/A; ph 17:30 BP 108 / 62; Pulse 80; Resp 16; Pulse Ox 100% on R/A; ph 13:57 Body Mass Index 24.03 (63.50 kg, 162.56 cm) ll1 MDM: 15:02 Patient medically screened. kb 16:08 Data reviewed: vital signs, nurses notes. Data interpreted: Pulse oximetry: on room air kb is 98 %. Interpretation: normal. 17:50 Counseling: I had a detailed discussion with the patient and/or guardian regarding: the kb historical points, exam findings, and any diagnostic results supporting the discharge/admit diagnosis, lab results, radiology results, the need for outpatient follow up, a family practitioner, to return to the emergency department if symptoms worsen or persist or if there are any questions or concerns that arise at home. 12/31 15:10 Order name: CBC with Diff kb 12/31 15:10 Order name: Basic Metabolic Panel; Complete Time: 16:24 kb 12/31 15:10 Order name: Flu; Complete Time: 16:28 kb 12/31 15:10 Order name: Strep; Complete Time: 16:24 kb 12/31 15:10 Order name: Urine Microscopic Only; Complete Time: 17:09 kb 12/31 15:17 Order name: Karnes Screen Profile; Complete Time: 16:14 kb 12/31 15:10 Order name: IV Start; Complete Time: 15:52 kb 12/31 15:10 Order name: Urine Test (obtain specimen); Complete Time: 17:08 kb 12/31 16:22 Order name: Throat Culture EDMS 12/31 16:52 Order name: Urine Dipstick--Ancillary (enter results); Complete Time: 17:37 bd 12/31 16:52 Order name: Urine --Ancillary (enter results); Complete Time: 17:37 bd 12/31 17:04 Order name: US Transvaginal Study (Probe) kb 12/31 15:10 Order name: Urine Dipstick-Ancillary (obtain specimen); Complete Time: 17:08 kb Administered Medications: 15:10 Drug: Motrin 600 mg Route: PO; ll1 16:25 Follow up: Response: No adverse reaction; Temperature is decreased ph 17:08 Drug: NS 0.9% 1000 ml Route: IV; Rate: 1000 ml; Site: right antecubital; ph 18:00 Follow up: Response: No adverse reaction; IV Status: Completed infusion zb Disposition: 01/01 06:00 Co-signature as Attending Physician, Khari Slaughter MD. rn Disposition: 01/01/20 17:51 Discharged to Home. Impression: Fever, unspecified, Nonpurulent mastitis associated with . - Condition is Stable. - Discharge Instructions: and Mastitis, Mastitis, [id number]. - Prescriptions for Dicloxacillin 500 mg Oral Capsule - take 1 capsule by ORAL route every 6 hours for 10 days; 40 capsule. - Medication Reconciliation Form, Thank You Letter, Antibiotic Education, Prescription Opioid Use form. - Follow up: Emergency Department; When: As needed; Reason: Worsening of condition. Follow up: Private Physician; When: 2 - 3 days; Reason: Recheck today's complaints, Continuance of care, Re-evaluation by your physician. Signatures: Dispatcher [employer] EDMS Deirdre Martinez, CLIENT ONBOARDING ANALYST-C CLIENT ONBOARDING ANALYST-Ckb Khari Slaughter MD MD rn Hall, Patricia, RN RN ph Lewis, Lynsay, RN RN Carmella Schreiber RN zb Corrections: (The following items were deleted from the chart) 12/31 18:06 17:51 01/01/2020 17:51 Discharged to Home. Impression: Fever, unspecified; Nonpurulent ph mastitis associated with . Condition is Stable. Forms are Medication Reconciliation Form, Thank You Letter, Antibiotic Education, Prescription Opioid Use. Follow up: Emergency Department; When: As needed; Reason: Worsening of condition. Follow up: Private Physician; When: 2 - 3 days; Reason: Recheck today's complaints, Continuance of care, Re-evaluation by your physician. kb
--- NOTE | 2020-01-01 18:21 | RAD REPORT ---
EXAM DESCRIPTION: US - Transvaginal Study Probe - 01/01/2020 5:50 pm CLINICAL HISTORY: ABD PAIN, fever, 6 weeks COMPARISON: Transvaginal Study Probe dated 06/22/2016 TECHNIQUE: Endovaginal sonography was performed. FINDINGS: A thin endometrial stripe is present with no hemorrhage, mass or acute endometrial finding . No myometrial mass seen in the normal sized uterus. Normal size right ovary is identified. There are multiple small cysts or follicles of the right ovary seen. No dominant solid or cystic mass. Normal blood flow seen in the stroma. Left ovary was obscured by bowel gas and not visualized. No left adnexal mass seen. No blood or fluid in the cul de sac. IMPRESSION: No endometrial abnormality. Uterus unremarkable. Normal right ovary and right adnexa. Nonvisualization of the left ovary due to bowel. No left adnexal abnormality.
[2020-01-01 19:02] LABS: Blood Morphology Comment NOT SEEN (NOT SEEN); Platelet Estimate ADEQ; White Blood Cell Scan OK (OK)
[2020-01-01 19:18] VITALS: TEMP 99.6; O2SAT 100
[2020-01-01 19:19] VITALS: BP 108/62
== END 2020-01-01 18:06 | disposition home or self-care (01) ==
LOC: ER 13:34
DX: O91.23 Nonpurulent mastitis associated with lactation (principal); Z88.2 Allergy status to sulfonamides
CPT/HCPCS: 87070; 85025; 80048; 36415; 86308; 81025; 87081; 87804 ×2; 76830; 96360; 99284; J7030; 81003; 81015

== ENCOUNTER 2022-07-25 12:49 | Emergency (ER) | payer OTHER ==
--- OUTSIDE RECORDS SUMMARY | 2022-07-25 12:55 | XMS REPORT | Continuity of Care Document ---
:1995 Author Organization [facility] t Address [address] [facility]. [address] [place] [address] Care Team Providers Name Role Phone Grant Aparicio DO Attending Clinician SHERRY CALDERON Attending Clinician Unavailable Kyaw Hanson MD Attending Clinician KYAW HANSON Attending Clinician Unavailable Sherry Calderon PA-C Attending Clinician Only, [facility] Test Attending Clinician Unavailable 2, [facility] Attending Clinician Unavailable Doctor Unassigned, [place] Attending Clinician Unavailable 1, [facility] Attending Clinician Unavailable Jag Rowe MD Attending Clinician KYAW HANSON Admitting Clinician Unavailable Kyaw Hanson MD Admitting Clinician Payers Payer Name Policy Type Policy Number Effective Date Expiration Date Lakeisha CHRISTIAN [id number] 2019 00:00:00 Problems Condition Condition Condition Status Onset Resolution Last Treating Co mments Source Name Details Category Date Date Treatment Clinician Date Nexplanon Nexplanon Disease Active 2019-[address] place 03-08 ity of 00:00: [place] 00 Medical Branch Encounter Encounter Disease Active Uni vers for for 11-19 ity of elective elective 00:00: [place] induction induction 00 [facility] keisha of labor of labor Branch Liveborn Liveborn Disease Active 2019- Unive rs infant, of infant, of 11-19 [place] , , 00 [place] dical born in born in [facility] by vaginal by vaginal delivery delivery History of History of Disease Active 2020-0 U nivers loop loop 7 [place]y of electrical electrical [place] excision excision 00 Medica l procedure procedure Bran ch (LEEP) (LEEP) 27 weeks 27 weeks Disease Active 2020-0 Unive rs gestation gestation 7-06 ity of of of 00:00: [place] 00 [facility] 36 weeks 36 weeks Disease Active 2020-0 Unive rs gestation gestation 7-06 ity of of of 00:00: [place] 00 [facility] 38 weeks 38 weeks Disease Active 2020-0 Unive rs gestation gestation 7- ity of of of 00:00: [place] 00 [facility] 39 weeks 39 weeks Disease Active 2020-0 Unive rs gestation gestation 7-06 ity of of of 00:00: [place] 00 [facility] Normal Normal Disease Active 2020-0 Univers 7 ity of in third in third 00:00: [place] trimester trimester 00 [facility] 32 weeks 32 weeks Disease Active 2020-0 Unive rs gestation gestation 7- ity of of of 00:00: [place] 00 [facility] Allergies, Adverse Reactions, Alerts Allergy Allergy Status Severity Reaction(s) Onset Inactive Treating Comm ents Source Name Type Date Date Clinician Sulfa Propensi Active Rash 2020-0 Univers (Sulfona ty to 09-02 ity of mide adverse 00:00: [place] Antibiot reaction 00 Medica l ics) s Branch SULFA Drug Active Rash 2020-0 Univers (SULFONA Class 09-02 ity of MIDE 00:00: [place] ANTIBIOT 00 Medical ICS) Branch NO KNOWN Drug Active Univers ALLERGIE Class ity of S [facility] Social History Social Habit Start Date Stop Date Quantity Comments Source ASSERTION 2019-03-06 University 00:00:00 [facility] Exposure to Not sure [facility] SARS-CoV-2 [facility] (event) Branch Alcohol intake 2020-01-07 2020-01-07 Ex-drinker [facility] 00:00:00 00:00:00 (finding) [facility] Tobacco use and 2020-01-07 2020-01-07 Never used Universit y of exposure 00:00:00 00:00:00 [facility] History of 2014-09-02 Smoker University of tobacco use 00:00:00 [facility] 1995 [facility] Smoking Status Start Date Stop Date Source Former smoker 2020-01-07 00:00:00 2020-01-07 00:00:00 [facility] Medications Ordered Filled Start Stop Current Ordering Indication Dosage Frequency Signature Comments Components Source Medication Medication Date Date Medication? Clinician (SIG) Name Name etonogestre 2019-02- No 68mg Unive rs L 03-08 ity of (NEXPLANON) 18:00: 17:09 [place] implant 68 00 :00 Medical mg Branch etonogestre 2019-02 No 68mg 68 mg, Uni vers L 03-08 Subdermal, ity of (NEXPLANON) 18:00: 17:09 ONCE NOW, [place] implant 68 00 :00 1 dose, Medica l mg Mon Avis 01/07/20 at 1200, Routine
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
Use approved by: [employer]OTH P[employer]ER acetaminoph 2019-02 Yes Take by Uni vers en 1-09 mouth ity of (TYLENOL) 16:33: every 6 [place] 325 mg 38 (six) Medical tablet hours as Branch needed. acetaminoph 2019- Yes Take by Uni vers en 1-09 mouth ity of (TYLENOL) 16:33: every 6 [place] 325 mg 38 (six) Medical tablet hours as Branch needed. acetaminoph 2019- Yes Take by Uni vers en 109 mouth ity of (TYLENOL) 16:33: every 6 [place] 325 mg 38 (six) Medical tablet hours as Branch needed. acetaminoph 2019- Yes Take by Uni vers en 09 mouth ity of (TYLENOL) 16:33: every 6 [place] 325 mg 38 (six) Medical tablet hours as Branch needed. acetaminoph 2019- Yes Take by Uni vers en 109 mouth ity of (TYLENOL) 16:33: every 6 [place] 325 mg 38 (six) Medical tablet hours as Branch needed. acetaminoph 2019- Yes Take by Uni vers en 105 mouth ity of (TYLENOL) 17:15: every 6 [place] 325 mg 14 (six) Medical tablet hours as Branch needed. ergocalcife 2019- Yes Take by Uni vers rol, 1-05 mouth. ity of vitamin D2, 17:15: [place] (VITAMIN D 14 Medical ORAL) Branch acetaminoph 2019-02 Yes Take by Uni vers en 1-05 mouth ity of (TYLENOL) 17:15: every 6 [place] 325 mg 14 (six) Medical tablet hours as Branch needed. ergocalcife 2019- Yes Take by Uni vers rol, 1-05 mouth. ity of vitamin D2, 17:15: [place] (VITAMIN D 14 Medical ORAL) Branch ergocalcife 2019- Yes Take by Uni vers rol, 1-05 mouth. ity of vitamin D2, 17:15: [place] (VITAMIN D 14 Medical ORAL) Branch ergocalcife 2020- Yes Take by Uni vers rol, 1-05 mouth. ity of vitamin D2, 17:15: [place] (VITAMIN D 14 Medical ORAL) Branch ergocalcife 2019- Yes Take by Uni vers rol, 1-05 mouth. ity of vitamin D2, 17:15: [place] (VITAMIN D 14 Medical ORAL) Branch ergocalcife 2020- Yes Take by Uni vers rol, 1-05 mouth. ity of vitamin D2, 17:15: [place] (VITAMIN D 14 Medical ORAL) Branch ergocalcife 2019-02 Yes Take by Uni vers rol, 03-04 mouth. ity of vitamin D2, 17:15: [place] (VITAMIN D 14 Medical ORAL) Branch dicloxacill 2019-02 2020- No [id number] 500mg Take 1 Univers in 500 mg 03-04 capsule by ity of capsule 00:00: 05:59 mouth 4 [place] 00 :00 ([facility]) Medical times Branch daily for 7 days. dicloxacill 2019-02- No [id number] 500mg Take 1 Univers in 500 mg 03-04 capsule by ity of capsule 00:00: 05:59 mouth 4 [place] 00 :[address] ([address] [facility]) Medical times Branch daily for 7 days. dicloxacill 2019-02- No [id number] 500mg Take 1 Univers in 500 mg 03-04 capsule by ity of capsule 00:00: 00:00 mouth 4 [place] 00 :[address] ([address] [facility]) Medical times Branch daily for 7 days. dicloxacill 2019-02- No [id number] 500mg Take 1 Univers in 500 mg 03-04 capsule by ity of capsule 00:00: 00:00 mouth 4 [place] 00 :00 ([address] [facility]) Medical times Branch daily for 7 days. dicloxacill 2019-02- No [id number] 500mg Take 1 Univers in 500 mg 03-04 capsule by ity of capsule 00:00: 00:00 mouth 4 [place] 00 :00 ([address] [facility]) Medical times Branch daily for 7 days. 2020- No Take by Unive rs vit -11-20 mouth. ity of calc,iron,f 12:32: 00:00 [place] olic 54 :00 Medical ( Branch VITAMIN ORAL) Yes [id number] 1{tbl} Take 1 Univers vitamin 9-23 tablet by ity of w/FA tablet 00:00: mouth [place] 00 daily. Medical Branch docusate 2019-0 Yes [id number] 240mg Take 1 U nivers calcium 240 - capsule by it y of mg capsule 00:00: mouth once [place] 00 daily as Medical needed for Branch Constipati on. ferrous 2019- Yes [id number] 325mg Take 1 Un dustin sulfate 325 9-23 tablet by ity of mg (65 mg 00:00: mouth 2 [place] iron) 00 (two) Medical tablet times Branch daily. ibuprofen 2020-0 Yes [id number] 600mg Take 1 Univers 600 mg 9-23 tablet by ity of tablet 00:00: mouth [place] 00 every 6 Medical (six) Branch hours as needed (Pain). Take with food or milk. 2020-0 Yes [id number] 1{tbl} Take 1 Univers vitamin 9-23 tablet by ity of w/FA tablet 00:00: mouth [place] 00 daily. Medical Branch docusate 2020-0 Yes [id number] 240mg Take 1 U nivers calcium 240 9-23 capsule by it y of mg capsule 00:00: mouth once [place] 00 daily as Medical needed for Branch Constipati on. ferrous 2020-0 Yes [id number] 325mg Take 1 Un dustin sulfate 325 9-23 tablet by ity of mg (65 mg 00:00: mouth 2 [place] iron) 00 (two) Medical tablet times Branch daily. ibuprofen 2020-0 Yes [id number] 600mg Take 1 Univers 600 mg 9-23 tablet by ity of tablet 00:00: mouth [place] 00 every 6 Medical (six) Branch hours as needed (Pain). Take with food or milk. 2020-0 Yes [id number] 1{tbl} Take 1 Univers vitamin 9-23 tablet by ity of w/FA tablet 00:00: mouth [place] 00 daily. Medical Branch docusate 2020-0 Yes [id number] 240mg Take 1 U nivers calcium 240 9-23 capsule by it y of mg capsule 00:00: mouth once [place] 00 daily as Medical needed for Branch Constipati on. ferrous 2020-0 Yes [id number] 325mg Take 1 Un dustin sulfate 325 9-23 tablet by ity of mg (65 mg 00:00: mouth 2 [place] iron) 00 (two) Medical tablet times Branch daily. ibuprofen 2020-0 Yes [id number] 600mg Take 1 Univers 600 mg 9-23 tablet by ity of tablet 00:00: mouth [place] 00 every 6 Medical (six) Branch hours as needed (Pain). Take with food or milk. 2020-0 Yes [id number] 1{tbl} Take 1 Univers vitamin 9-23 tablet by ity of w/FA tablet 00:00: mouth [place] 00 daily. Medical Branch docusate 0 Yes [id number] 240mg Take 1 U nivers calcium 240 9-23 capsule by it y of mg capsule 00:00: mouth once [place] 00 daily as Medical needed for Branch Constipati on. ferrous Yes [id number] 325mg Take 1 Un dustin sulfate 325 9-23 tablet by ity of mg (65 mg 00:00: mouth 2 [place] iron) 00 (two) Medical tablet times Branch daily. ibuprofen Yes [id number] 600mg Take 1 Univers 600 mg 9-23 tablet by ity of tablet 00:00: mouth [place] 00 every 6 Medical (six) Branch hours as needed (Pain). Take with food or milk. Yes [id number] 1{tbl} Take 1 Univers vitamin 9-23 tablet by ity of w/FA tablet 00:00: mouth [place] 00 daily. Medical Branch 0 Yes [id number] 1{tbl} Take 1 Univers vitamin 9-23 tablet by ity of w/FA tablet 00:00: mouth [place] 00 daily. Medical Branch 0 Yes [id number] 1{tbl} Take 1 Univers vitamin 9-23 tablet by ity of w/FA tablet 00:00: mouth [place] 00 daily. Medical Branch 0 Yes [id number] 1{tbl} Take 1 Univers vitamin 9-23 tablet by ity of w/FA tablet 00:00: mouth [place] 00 daily. Medical Branch 2019-0 Yes [id number] 1{tbl} Take 1 Univers vitamin 9-23 tablet by ity of w/FA tablet 00:00: mouth [place] 00 daily. Medical Branch docusate 0 2020- No [id number] 240mg Take 1 Univers calcium 240 9-23 - capsule by i ty of mg capsule 00:00: 00:00 mouth once [place] 00 :00 daily as Medical needed for Branch Constipati on. ferrous 2020- No [id number] 325mg Take 1 U nivers sulfate 325 9-23 11- tablet by it y of mg (65 mg 00:00: 00:00 mouth 2 [place] iron) 00 :00 (two) Medical tablet times Branch daily. ibuprofen 2020- No [id number] 600mg Take 1 Univers 600 mg 9-23 11-09 tablet by ity of tablet 00:00: 00:00 mouth [place] 00 :00 every 6 Medical (six) Branch hours as needed (Pain). Take with food or milk. docusate 2019- No [id number] 240mg Take 1 Univers calcium 240 11-20 capsule by i ty of mg capsule 00:00: 00:00 mouth once [place] 00 :00 daily as Medical needed for Branch Constipati on. ferrous 2019- No [id number] 325mg Take 1 U nivers sulfate 325 11-20 tablet by it y of mg (65 mg 00:00: 00:00 mouth 2 [place] iron) 00 :00 (two) Medical tablet times Branch daily. ibuprofen 2019- No [id number] 600mg Take 1 Univers 600 mg 11-20 tablet by ity of tablet 00:00: 00:00 mouth [place] 00 :00 every 6 Medical (six) Branch hours as needed (Pain). Take with food or milk. docusate No [id number] 240mg Take 1 Univers calcium 240 11-20 capsule by i ty of mg capsule 00:00: 00:00 mouth once [place] 00 :00 daily as Medical needed for Branch Constipati on. ferrous 2019- No [id number] 325mg Take 1 U nivers sulfate 325 11-20 tablet by it y of mg (65 mg 00:00: 00:00 mouth 2 [place] iron) 00 :00 (two) Medical tablet times Branch daily. ibuprofen 2019- No [id number] 600mg Take 1 Univers 600 mg 11-20 tablet by ity of tablet 00:00: 00:00 mouth [place] 00 :00 every 6 Medical (six) Branch hours as needed (Pain). Take with food or milk. rho(D) Yes 300ug 300 mcg, Univer s immune 11-19 Intramuscu ity of globulin 22:07: lar, ONCE, [place] (RHOGAM) 39 For 1 Medical syringe 300 dose, Branch mcg Conditiona l, Routine HYDROcodone Yes 1{tbl} 1 tablet, Univers -acetaminop 11-19 Oral, ity of hen (NORCO 22:07: Q6HPRN, [place] 5) 5-325 mg 33 Starting Medi keisha tablet 1 Tue Branch tablet 11/20/19 at 1707, Until Discontinu ed, Routine, Pain (scale 7-10) ibuprofen 2020-0 Yes 600mg 600 mg, Univ ers (IBU) 11-19 Oral, ity of tablet 600 22:07: Q6HPRN, [place] mg 33 Starting Medical Tue Branch 11/20/19 at 1707, Until Discontinu ed, Routine, Pain (scale 4-6) diphenhydrA 2020-0 Yes 25mg 25 mg, Univ ers MINE 11-19 Oral, ity of (BENADRYL) 22:07: Q6HPRN, [place] tablet 25 33 Starting Medica l mg Tue Branch 11/20/19 at 1707, Until Discontinu ed, Routine, Sleep, Itching ondansetron 2020-0 Yes 4mg 4 mg, Slow Univers (ZOFRAN 11-19 IV Push, ity of (PF)) 22:07: Q8HPRN, [place] injection 4 33 Starting Medi keisha mg Tue Branch 11/20/19 at 1707, Until Discontinu ed, Routine, Nausea and Vomiting (N/V) simethicone 2020-0 Yes 160mg 160 mg, Un dustin (GAS RELIEF 11-19 Oral, ity of (SIMETHICON 22:07: PC+HSPRN, [place] E)) 33 Starting Medical chewable Tue Branch tablet 160 11/20/19 at mg 1707, Until Discontinu ed, Routine, Gas docusate 2020-0 Yes 240mg 240 mg, Unive rs calcium 11-19 Oral, ity of (SURFAK) 22:07: QDAILYPRN, [place] capsule 240 33 Starting Medi keisha mg Tue Branch 11/20/19 at 1707, Until Discontinu ed, Routine, Constipati on magnesium 2020-0 Yes 30mL 30 mL, Univer s hydroxide 11-19 Oral, ity of (MILK OF 22:07: QDAILYPRN, [place] MAGNESIA) 33 Starting Medica l 400 mg/5 mL Tue Branch suspension 11/20/19 at 30 mL 1707, Until Discontinu ed, Routine, Constipati on benzocaine- 2020-0 Yes Topical, Un dustin menthol 11-19 PRN, ity of (DERMOPLAST 22:07: [place] ) 20-0.5 % 33 Tue Medical topical 11/20/19 at Branch spray 1707, Until Discontinu ed, Routine, Perineum discomfort acetaminoph 2019-0 Yes 650mg 650 mg, Un dustin en 11-19 Oral, ity of (TYLENOL) 22:07: Q6HPRN, [place] tablet 650 32 Starting Medic al mg [facility] 11/20/19 at 1707, Until Discontinu ed, Routine, Pain (scale 1-3) lactated 0 2020- No 1000mL at 999 Univ ers ringers IV 11-19 mL/hr, ity of infusion 15:42: 15:30 1,000 mL, [place] 1,000 mL 00 :00 IV Medical Infusion, Branch ONCE, 1 dose, [facility] 11/20/19 at 1045, Routine [id number]-[id number] IV 0 2020- No 1000mL at 125 Uni vers infusion 11-19 mL/hr, IV ity o f 1,000 mL 09:00: 22:07 Infusion, [place] 00 :40 CONTINUOUS Medical , Starting Branch [facility] 11/20/19 at 0400, Until Tue11/20/19 at 170, Routine LR 1000 mL 0 2020- No 2mU/min at 6-120 Univers + oxytocin 11-19 mL/hr, IV ity of 20 units IV 08:53: 22:07 Infusion, [place] Solution 22 :40 TITRATE, Medical Starting Branch [facility] 11/20/19 at 0353, Until Tue11/20/19 at 170, JULIA sodium 0 2020- No 30mL 30 mL, Univers citrate-cit 11-19 Oral, ity of rain acid 08:52: 15:39 PRE-PROCED [place] (BICITRA) 25 :00 URE ONCE, Medic al 500-334 1 dose, Branch mg/5 mL Starting solution 30 Tue mL 11/20/19 at 0352, Until Discontinu ed, Routine, Surgery/Pr ocedure 0 Yes Take by [employer] vit 7-06 mouth. ity of calc,iron,f 19:33: [place] olic 42 Medical ( Branch VITAMIN ORAL) 2019-0 Yes Take by Univer s vit 7-06 mouth. ity of calc,iron,f 19:33: [place] [address] Medical ( Branch VITAMIN ORAL) 2020-0 Yes Take by Univer s vit 7-06 mouth. ity of calc,iron,f 19:33: [place] [address] Medical ( Branch VITAMIN ORAL) 2020-0 Yes Take by Univer s vit 7-06 mouth. ity of calc,iron,f 19:33: [place] [address] Medical ( Branch VITAMIN ORAL) 2020-0 Yes Take by Univer s vit 7-06 mouth. ity of calc,iron,f 19:33: [place] [address] Medical ( Branch VITAMIN ORAL) 2020-0 Yes Take by Univer s vit 7-06 mouth. ity of calc,iron,f 19:33: [place] [address] Medical ( Branch VITAMIN ORAL) 2020-0 Yes Take by Univer s vit 7-06 mouth. ity of calc,iron,f 19:33: [place] [id number] Medical ( Branch VITAMIN ORAL) 2020-0 Yes Take by Univer s vit 7-06 mouth. ity of calc,iron,f 19:33: [place] [address] Medical ( Branch VITAMIN ORAL) 2020-0 Yes Take by Univer s vit 7-06 mouth. ity of calc,iron,f 19:33: [place] [address] Medical ( Branch VITAMIN ORAL) 2020-0 Yes Take by Univer s vit 7-06 mouth. ity of calc,iron,f 19:33: [place] [address] Medical ( Branch VITAMIN ORAL) 2020-0 Yes Take by Univer s vit 7-06 mouth. ity of calc,iron,f 19:33: [place] [id number] Medical ( Branch VITAMIN ORAL) 2020-0 Yes Take by Univer s vit 7-06 mouth. ity of calc,iron,f 19:33: [place] [address] Medical ( Branch VITAMIN ORAL) 2020-0 Yes Take by Univer s vit 7-06 mouth. ity of calc,iron,f 19:33: [place] [id number] Medical ( Branch VITAMIN ORAL) 2020-0 Yes Take by Univer s vit 7-06 mouth. ity of calc,iron,f 19:33: [place] [id number] Medical ( Branch VITAMIN ORAL) 2020-0 Yes Take by Univer s vit 7-06 mouth. ity of calc,iron,f 19:33: [place] [address] Medical ( Branch VITAMIN ORAL) 2020-0 Yes Take by Univer s vit 7-06 mouth. ity of calc,iron,f 19:33: [place] [address] Medical ( Branch VITAMIN ORAL) 2020-0 Yes Take by Univer s vit 7-06 mouth. ity of calc,iron,f 19:33: [place] [address] Medical ( Branch VITAMIN ORAL) 2020-0 Yes Take by Univer s vit 7-06 mouth. ity of calc,iron,f 19:33: [place] [id number] Medical ( Branch VITAMIN ORAL) 2020-0 Yes Take by Univer s vit 7-06 mouth. ity of calc,iron,f 19:33: [place] [id number] Medical ( Branch VITAMIN ORAL) 2020-0 Yes Take by Univer s vit 7-06 mouth. ity of calc,iron,f 19:33: [place] [id number] Medical ( Branch VITAMIN ORAL) 2020-0 Yes Take by Univer s vit 7-06 mouth. ity of calc,iron,f 19:33: [place] [id number] Medical ( Branch VITAMIN ORAL) 2020-0 Yes Take by Univer s vit 7-06 mouth. ity of calc,iron,f 19:33: [place] [id number] Medical ( Branch VITAMIN ORAL) 2020-0 Yes Take by Univer s vit 7-06 mouth. ity of calc,iron,f 19:33: [place] [id number] Medical ( Branch VITAMIN ORAL) 2020-0 Yes Take by Univer s vit 7-06 mouth. ity of calc,iron,f 19:33: [place] [id number] Medical ( Branch VITAMIN ORAL) 2020-0 Yes Take by Univer s vit 7-06 mouth. ity of calc,iron,f 19:33: [place] [id number] Medical ( Branch VITAMIN ORAL) Immunizations Ordered Filled Immunization Date Status Comments [facility] e Immunization Name Name Influenza Virus 2019-12-18 Completed Universit y of Vaccine Quad .5 mL 00:00:00 [facility] IM 6+ MO Branch Influenza Virus 2019-12-18 Completed Universit y of Vaccine Quad .5 mL 00:00:00 [facility] IM 6+ MO Branch Influenza Virus 2019-12-18 Completed Universit y of Vaccine Quad .5 mL 00:00:00 [place] Medical IM 6+ MO Branch Influenza Virus 2019-12-18 Completed Universit y of Vaccine Quad .5 mL 00:00:00 [place] Medical IM 6+ MO Branch Influenza Virus 2019-12-18 Completed Universit y of Vaccine Quad .5 mL 00:00:00 [place] Medical IM 6+ MO Branch Influenza Virus 2019-12-18 Completed Universit y of Vaccine Quad .5 mL 00:00:00 [place] Medical IM 6+ MO Branch Influenza Virus 2019-12-18 Completed Universit y of Vaccine Quad .5 mL 00:00:00 [place] Medical IM 6+ MO Branch Influenza Virus 2019-12-18 Completed Universit y of Vaccine Quad .5 mL 00:00:00 [place] Medical 6+ MO Branch TDAP 2019-09-03 Completed University of 00:00:00 [facility] TDAP 2019-09-03 Completed University of 00:00:00 [facility] TDAP 2019-09-03 Completed University of 00:00:00 [facility] TDAP 2019-09-03 Completed University of 00:00:00 [facility] TDAP 2019-09-03 Completed University of 00:00:00 [facility] TDAP 2019-09-03 Completed University of 00:00:00 [facility] TDAP 2019-09-03 Completed University of 00:00:00 [facility] TDAP 2019-09-03 Completed University of 00:00:00 [facility] TDAP 2019-09-03 Completed University of 00:00:00 [facility] TDAP 2019-09-03 Completed University of 00:00:00 [facility] TDAP 2019-09-03 Completed University of 00:00:00 [facility] TDAP 2019-09-03 Completed University of 00:00:00 [facility] TDAP 2019-09-03 Completed University of 00:00:00 [facility] TDAP 2019-09-03 Completed University of 00:00:00 [facility] TDAP 2019-09-03 Completed University of 00:00:00 [facility] TDAP 2019-09-03 Completed University of 00:00:00 [facility] TDAP 2019-09-03 Completed University of 00:00:00 [facility] TDAP 2019-09-03 Completed University of 00:00:00 [facility] TDAP 2019-09-03 Completed University of 00:00:00 [facility] Branch TDAP 2019-09-03 Completed University of 00:00:00 [place] [facility] Branch TDAP 2019-09-03 Completed University of 00:00:00 [place] [facility] TDAP 2019-09-03 Completed University of 00:00:00 [place] [facility] TDAP 2019-09-03 Completed University of 00:00:00 [place] [facility] Branch TDAP 2019-09-03 Completed University of 00:00:00 [place] [facility] Branch TDAP 2019-09-03 Completed University of 00:00:00 [place] [facility] Branch TDAP 2019-09-03 Completed University of 00:00:00 [facility] Branch TDAP 2019-09-03 Completed University of 00:00:00 [place] [facility] Branch TDAP 2019-09-03 Completed University of 00:00:00 [facility] Branch TDAP 2019-09-03 Completed University of 00:00:00 [facility] Branch TDAP 2019-09-03 Completed University of 00:00:00 [facility] Branch TDAP 2019-09-03 Completed University of 00:00:00 [facility] Branch TDAP 2019-09-03 Completed University of 00:00:00 [facility] Branch TDAP 2019-09-03 Completed University of 00:00:00 [facility] Branch TDAP 2019-09-03 Completed University of 00:00:00 [facility] Vital Signs Vital Name Observation Time Observation Value Comments Source Systolic blood 2020-01-07 16:17:00 102 mm[Hg] Univer sity of pressure [facility] Diastolic blood 2020-01-07 16:17:00 70 mm[Hg] Unive rsity of pressure [facility] Heart rate 2020-01-07 16:17:00 73 /min [facility] Body temperature 2020-01-07 16:17:00 36.72 Karen Univ ersity [facility] [place] [facility] Respiratory rate 2020-01-07 16:17:00 18 /min Univ ersity [facility] Body weight 2020-01-07 16:17:00 60.963 kg [facility] BMI 2020-01-07 16:17:00 23.07 kg/m2 [facility] Systolic blood 2020-01-03 17:13:00 93 mm[Hg] Univer sity of pressure [facility] Diastolic blood 2020-01-03 17:13:00 57 mm[Hg] Unive rsity of pressure [facility] Heart rate 2020-01-03 17:13:00 71 /min [facility] Body temperature 2020-01-03 17:13:00 36.5 Karen [facility] Respiratory rate 2020-01-03 17:13:00 18 /min [facility] Body weight 2020-01-03 17:13:00 61.054 kg [facility] BMI 2020-01-03 17:13:00 23.10 kg/m2 [facility] Systolic blood 2019-12-18 18:42:00 104 mm[Hg] Univer sity of pressure [facility] Diastolic blood 2019-12-18 18:42:00 70 mm[Hg] Unive rsity of pressure [facility] Heart rate 2019-12-18 18:42:00 67 /min [facility] Body temperature 2019-12-18 18:42:00 36.78 Karen [facility] Respiratory rate 2019-12-18 18:42:00 16 /min [facility] Body height 2019-12-18 18:42:00 162.6 cm [facility] Body weight 2019-12-18 18:42:00 60.782 kg [facility] BMI 2019-12-18 18:42:00 23.00 kg/m2 [facility] Systolic blood 2019-12-18 18:42:00 104 mm[Hg] [facility] Diastolic blood 2019-12-18 18:42:00 70 mm[Hg] Unive rsity of pressure [facility] Heart rate 2019-12-18 18:42:00 67 /min [facility] Body temperature 2019-12-18 18:42:00 36.78 Karen [facility] Respiratory rate 2019-12-18 18:42:00 16 /min [facility] Body height 2019-12-18 18:42:00 162.6 cm [facility] Body weight 2019-12-18 18:42:00 60.782 kg [facility] BMI 2019-12-18 18:42:00 23.00 kg/m2 [facility] Systolic blood 2019-11-21 17:07:00 116 mm[Hg] Univer [facility]ity of [facility] Diastolic blood 2019-11-21 17:07:00 70 mm[Hg] Unive rsity of pressure [facility] Heart rate 2019-11-21 17:07:00 80 /min [facility] Body temperature 2019-11-21 17:07:00 37 Karen [facility] Respiratory rate 2019-11-21 17:07:00 18 /min [facility] Oxygen saturation in 2019-11-21 17:07:00 100 /min [facility] of Arterial blood by [employer] Pulse oxim[facility] Branch Body height 2019-11-20 09:00:00 162.6 cm [facility] Body weight 2019-11-20 09:00:00 69.854 kg [facility] BMI 2019-11-20 09:00:00 26.43 kg/m2 [facility] Systolic blood 2019-11-21 17:07:00 116 mm[Hg] Univer [facility]ity of [facility] Diastolic blood 2019-11-21 17:07:00 70 mm[Hg] Unive rsity of [facility] Heart rate 2019-11-21 17:07:00 80 /min [facility] Body temperature 2019-11-21 17:07:00 37 Karen [facility] Respiratory rate 2019-11-21 17:07:00 18 /min [facility] Oxygen saturation in 2019-11-21 17:07:00 100 /min [facility] Arterial blood by [place] [employer] [facility] Pulse oxim[facility] Branch Body height 2019-11-20 09:00:00 162.6 cm [facility] Body weight 2019-11-20 09:00:00 69.854 kg [facility] BMI 2019-11-20 09:00:00 26.43 kg/m2 [facility] Systolic blood 2019-11-13 13:26:00 98 mm[Hg] [facility] Diastolic blood 2019-11-13 13:26:00 68 mm[Hg] Unive rsity of pressure [facility] Heart rate 2019-11-13 13:26:00 70 /min [facility] Body temperature 2019-11-13 13:26:00 36.83 Karen [facility] Respiratory rate 2019-11-13 13:26:00 18 /min [facility] Body height 2019-11-13 13:26:00 162.6 cm [facility] Body weight 2019-11-13 13:26:00 68.947 kg [facility] BMI 2019-11-13 13:26:00 26.09 kg/m2 [facility] Systolic blood 2019-11-13 13:26:00 98 mm[Hg] [facility] Diastolic blood 2019-11-13 13:26:00 68 mm[Hg] Unive rsity of [facility] Heart rate 2019-11-13 13:26:00 70 /min [facility] Body temperature 2019-11-13 13:26:00 36.83 Karen [facility] Respiratory rate 2019-11-13 13:26:00 18 /min [facility] Body height 2019-11-13 13:26:00 162.6 cm [facility] Body weight 2019-11-13 13:26:00 68.947 kg [facility] BMI 2019-11-13 13:26:00 26.09 kg/m2 [facility] Systolic blood 2019-11-08 13:59:00 107 mm[Hg] [facility] Diastolic blood 2019-11-08 13:59:00 71 mm[Hg] Unive rsity of [facility] Heart rate 2019-11-08 13:59:00 73 /min [facility] Body temperature 2019-11-08 13:59:00 36.5 Karen [facility] Respiratory rate 2019-11-08 13:59:00 18 /min [facility] Body height 2019-11-08 13:59:00 162.6 cm [facility] Body weight 2019-11-08 13:59:00 68.493 kg [facility] BMI 2019-11-08 13:59:00 25.92 kg/m2 [facility] Systolic blood 2019-11-08 13:59:00 107 mm[Hg] [facility] Diastolic blood 2019-11-08 13:59:00 71 mm[Hg] Unive rsity of [facility] Heart rate 2019-11-08 13:59:00 73 /min [facility] Body temperature 2019-11-08 13:59:00 36.5 Karen [facility] Respiratory rate 2019-11-08 13:59:00 18 /min [facility] Body height 2019-11-08 13:59:00 162.6 cm [facility] Body weight 2019-11-08 13:59:00 68.493 kg [facility] BMI 2019-11-08 13:59:00 25.92 kg/m2 [facility] Systolic blood 2019-11-02 21:25:00 108 mm[Hg] [facility] Diastolic blood 2019-11-02 21:25:00 64 mm[Hg] Unive rsity of pressure [facility] Heart rate 2019-11-02 21:25:00 85 /min [facility] Body temperature 2019-11-02 21:25:00 36.67 Karen [facility] Respiratory rate 2019-11-02 21:25:00 18 /min [facility] Body height 2019-11-02 21:25:00 160 cm [facility] Body weight 2019-11-02 21:25:00 68.04 kg [facility] BMI 2019-11-02 21:25:00 26.57 kg/m2 [facility] Systolic blood 2019-11-02 21:25:00 108 mm[Hg] [facility] Diastolic blood 2019-11-02 21:25:00 64 mm[Hg] Unive rsity of [facility] Heart rate 2019-11-02 21:25:00 85 /min [facility] Body temperature 2019-11-02 21:25:00 36.67 Karen [facility] Respiratory rate 2019-11-02 21:25:00 18 /min [facility] Body height 2019-11-02 21:25:00 160 cm [facility] Body weight 2019-11-02 21:25:00 68.04 kg [facility] BMI 2019-11-02 21:25:00 26.57 kg/m2 [facility] Systolic blood 2019-10-19 18:20:00 108 mm[Hg] [facility] Diastolic blood 2019-10-19 18:20:00 69 mm[Hg] Unive rsity of [facility] Heart rate 2019-10-19 18:20:00 87 /min [facility] Body temperature 2019-10-19 18:20:00 36.56 Karen [facility] Respiratory rate 2019-10-19 18:20:00 18 /min [facility] Body height 2019-10-19 18:20:00 160 cm [facility] Body weight 2019-10-19 18:20:00 65.953 kg [facility] BMI 2019-10-19 18:20:00 25.76 kg/m2 [facility] Systolic blood 2019-10-19 18:20:00 108 mm[Hg] [facility] Diastolic blood 2019-10-19 18:20:00 69 mm[Hg] Unive rsity of [facility] Heart rate 2019-10-19 18:20:00 87 /min [facility] Body temperature 2019-10-19 18:20:00 36.56 Karen [facility] Respiratory rate 2019-10-19 18:20:00 18 /min [facility] Body height 2019-10-19 18:20:00 160 cm [facility] Body weight 2019-10-19 18:20:00 65.953 kg [facility] BMI 2019-10-19 18:20:00 25.76 kg/m2 [facility] Systolic blood 2019-10-02 18:18:00 95 mm[Hg] Univer [facility]ity of [facility] Diastolic blood 2019-10-02 18:18:00 67 mm[Hg] Unive rsity of pressure [facility] Heart rate 2019-10-02 18:18:00 89 /min [facility] Body temperature 2019-10-02 18:18:00 36.78 Karen [facility] Respiratory rate 2019-10-02 18:18:00 18 /min [facility] of [facility] Body height 2019-10-02 18:18:00 160 cm [facility] Body weight 2019-10-02 18:18:00 64.864 kg [facility] BMI 2019-10-02 18:18:00 25.33 kg/m2 [facility] Systolic blood 2019-09-17 20:48:00 97 mm[Hg] Univer [facility]ity of [facility] Diastolic blood 2019-09-17 20:48:00 63 mm[Hg] Unive rsity of pressure [facility] Heart rate 2019-09-17 20:48:00 81 /min [facility]i ty of [facility] Body temperature 2019-09-17 20:48:00 36.78 Karen [facility] Respiratory rate 2019-09-17 20:48:00 16 /min Univ [facility] of [facility] Body height 2019-09-17 20:48:00 165.1 cm [facility] Body weight 2019-09-17 20:48:00 64.229 kg [facility] BMI 2019-09-17 20:48:00 23.56 kg/m2 [facility] Systolic blood 2019-09-03 19:29:00 105 mm[Hg] Univer [facility]ity of [facility] Diastolic blood 2019-09-03 19:29:00 63 mm[Hg] Unive rsity of pressure [facility] Heart rate 2019-09-03 19:29:00 94 /min [facility] Body temperature 2019-09-03 19:29:00 36.72 Karen [facility] Respiratory rate 2019-09-03 19:29:00 18 /min Univ [facility]ity of [facility] Body height 2019-09-03 19:29:00 165.1 cm [facility] Body weight 2019-09-03 19:29:00 64.411 kg [facility] BMI 2019-09-03 19:29:00 23.63 kg/m2 [facility] Procedures Procedure Date / Time Performing Clinician Source Performed POCT TEST 2020-01-07 00:00:00 Kyaw Hanson [facility] FLU VACC ([id number]), 6+ 2019-12-18 19:08:[address] [facility] MONTHS, IM, QUAD Medical Branch CBC WITH DIFF 2019-11-21 08:47:00 Kyaw Hanson [facility] VENOUS CORD GAS 2019-11-20 19:44:00 Kyaw Hanson [facility] HIV 1/2 AG-AB WITH REFLEX 2019-11-20 09:13:00 [facility] CBC WITH DIFF 2019-11-20 09:11:00 Kyaw Hanson [facility] HEPATITIS B SURFACE 2019-11-20 09:11:00 Kyaw Hanson [facility] ANTIGEN [facility] ADC OR BEATRIS ONLY - RPR 2019-11-20 09:11:00 [facility] A[facility] GROUPING 2019-11-20 09:05:00 Kyaw Hanson [facility] RHO (D) IMMUNE GLOBULIN 2019-11-20 09:05:00 Kyaw Hanson [facility] CONSENT/REFUSAL FOR 2019-11-19 18:31:17 Doctor Unassigned, [facility] DIAGNOSIS AND TREATMENT [facility] ASSIGNMENT OF BENEFITS 2019-11-19 18:30:58 Doctor Unassigned, [facility] CONSENT/REFUSAL FOR 2019-11-13 14:13:26 Doctor Unassigned, [facility] DIAGNOSIS AND TREATMENT [facility] ASSIGNMENT OF BENEFITS 2019-11-13 14:13:08 [facility] POCT URINALYSIS W/O 2019-11-13 00:00:00 Kyaw Hanson [facility] SPECIFIC GRAVITY [facility] POCT URINALYSIS W/O 2019-11-08 00:00:00 Sherry Calderon [facility] SPECIFIC GRAVITY [facility] DSU PRE-OP 2019-11-02 05:01:00 Doctor Unassigned, [facility] POCT URINALYSIS W/O 2019-11-02 00:00:00 Kyaw Hanson [facility] POCT URINALYSIS W/O 2019-10-19 00:00:00 Sherry Calderon [facility] SECOND AND THIRD 2019-10-18 20:34:00 Kyaw Hanson [facility] TRIMESTER ULTRASOUND Medical [facility] INSURANCE CORRESPONDENCE 2019-10-15 05:01:00 Doctor Fernandez [facility] Name Medical Avis 1 HR GLUCOSE TOLERANCE 2019-10-09 15:15:00 Sowmya Sherry [facility] GLUCOSE FASTING 2019-10-09 14:17:00 Sowmya Sherry [place] [facility] EXTERNAL PROVIDER RECORDS 2019-09-28 05:01:00 Doctor Fernandez [facility] EXTERNAL PROVIDER RECORDS 2019-09-19 05:01:00 Doctor Presley [facility] POCT URINALYSIS W/O 2019-09-17 20:46:00 Sherry Calderon [facility] ADC / LCC - DRUG SCREEN 2019-09-03 20:54:00 Kyaw Hanson [facility] TDAP VACCINE, >11 YRS, IM 2019-09-03 19:54:21 Kyaw Hanson [facility] POCT URINALYSIS W/O 2019-09-03 00:00:00 Kyaw Hanson [facility] Encounters Start End Encounter Admission Attending Care Care Encounter Source Date/Time Date/Time Type Type Clinicians Facility Department ID 2020-12-26 Outpatient P [facility] THOMAS [id number] Univers 17:33:09 ity [facility] 2020-05-20 2020-05-20 Patient Markus [facility] [id number] Univers 00:00:00 00:00:00 Outreach Grant PRIMARY [id number] i ty [facility] [id number] Red ORTIZ [id number] Pr dical [facility] Branch 2020-02-27 2020-02-27 Outpatient R SOWMYA [facility] [id number] Univers 09:30:00 09:30:00 SHERRY eddieninfa [facility] 2020-01-23 2020-01-23 Telephone Kyaw Hanson [facility] 1.2.840.114 [id number] [facility] 00:00:00 00:00:00 [place] [id number] i ty [id number] [phone] [address] 2020-01-07 2020-01-07 Office Kyaw Hanson [facility] [id number] Univers 09:29:29 10:46:29 Visit Kush [place] [id number] i ty [id number] [id number] [address] 2020-01-07 2020-01-07 Outpatient R VALENTIN KYAW [facility] [id number] Univers 09:30:00 09:30:00 ity of [facility] 2020-01-03 2020-01-03 [facility] [id number] Univers 13:00:00 13:00:00 SHERRY [facility] 2020-01-03 2020-01-03 [facility] 1.2.533.151 [id number] [facility] 11:00:39 11:35:00 Visit Sherry [place] [id number] i ty [id number] [phone] [address] 2019-12-18 2019-12-18 [facility]ine [facility] [id number] Univers 13:23:22 14:18:45 Sherry [place] [id number] ity of [place] [id number] [id number] [address] 2019-12-18 2019-12-18 [facility] [id number] 13:23:22 14:18:45 Sherry [place] [id number] Visit [place] [id number] Profess [id number] [address] 2019-12-18 2019-12-18 Outpatient R SOWMYA [facility] [id number] Univers 13:30:00 13:30:00 SHERRY ity [facility] 2019-11-20 2019-11-21 [facility] Kyaw Hanson [facility] 1.2.840.114 [id number] Univers 03:42:00 16:00:00 Encounter Cam [place] [id number] ity of [place] [id number] [facility] [id number] [address] 2019-11-20 2019-11-21 [facility] Kyaw Hanson [facility] 1.2.840.114 [id number] 03:42:00 16:00:00 Encounter Cam [place] [id number] [place] [id number] [place] [id number] [facility] 2019-11-19 2019-11-19 Outpatient R KYAW HANSON [facility] [id number] Univers 14:00:00 14:00:00 ity [facility] 2019-11-19 2019-11-19 Laboratory Only, [facility] Test [facility] 1.2.840. 114 [id number] Univers 13:32:34 13:47:34 Only Kyaw [place]ont[place] [id number] ity of [place] [id number] [facility] [id number] [address] 2019-11-19 2019-11-19 Laboratory Only, [facility] 1.2.840.114 [id number] 13:32:34 13:47:34 Only Test [place] [id number] [place] 4.2.7.2.686 [place] [id number] [id number] 2019-11-15 2019-11-15 Outpatient R KYAW HANSON [facility] [id number] Univers 08:15:00 08:15:00 ity [facility] 2019-11-13 2019-11-13 Routine Kyaw Hanson [facility] [id number] Univers 08:11:50 08:59:34 Cam [place] [id number] ity of [id number] [phone] [address] 2019-11-13 2019-11-13 Routine Kyaw Hanson [facility] 1.2.096.303 [id number] 08:11:50 08:59:34 Cam [place] [id number] Visit [place] [id number] Professio [id number] [address] 2019-11-13 2019-11-13 Outpatient R KYAW HANSON [facility] [id number] Univers 08:30:00 08:30:00 ity of [facility] 2019-11-09 2019-11-09 Telephone Kyaw Hanson [facility] 1.2.840.114 [id number] [facility] 00:00:00 00:00:00 Cam [place] [id number] i ty [place] [id number] [phone] [address] 2019-11-09 2019-11-09 Telephone Kyaw Hanson [facility] 1.2.840.114 [id number] 00:00:00 00:00:00 Cam [place] [id number] [place] [id number] Professio [id number] [address] 2019-11-08 2019-11-08 [facility]ine [facility] [id number] Univers 08:43:45 09:13:25 Sherry [place] [id number] ity of [place] [phone] [address] 2019-11-08 2019-11-08 Routine [facility] 1.2.788.506 [id number] 08:43:45 09:13:25 Sherry [place] [id number] Visit [place] [id number] Professio [id number] [address] 2019-11-08 2019-11-08 Outpatient R SOWMYA [facility] [id number] Univers 08:45:00 08:45:00 SHERRY ity of [facility] 2019-11-07 2019-11-07 Outpatient R [facility] [id number] Univers 09:45:00 09:45:00 ity of [facility] 2019-11-07 2019-11-07 Outside Cutter Hand 2, Adc Lab [facility] 1.2.840.114 [id number] Univers 09:29:04 09:44:04 Visit Kyaw Hanson [place] 350.1.13.10 ity [place] 4[place]2.[place] [phone] Pr dical [address] 2019-11-07 2019-11-07 Outside Cutter Hand 2, Adc Lab [facility] 1.2.840.114 [id number] 09:29:04 09:44:04 Visit [place] 350.1.13.10 [place] 4.2.7.2.686 Professio [phone] [address] 2019-11-02 2019-11-02 Routine Kyaw Hanson [facility] 1.2.364.783 [id number] Univers 15:46:41 16:53:21 Cam [place] [id number] ity of [place] 4[place] [phone] Pr dictoribio [address] 2019-11-02 2019-11-02 Routine Kyaw Hanson [facility] 1.2.255.863 [id number] 15:46:41 16:53:21 Cam [place] [id number] Visit [place] 4.2.7.2.686 Professio [phone] [address] 2019-11-02 2019-11-02 Outpatient R KYAW HANSON [facility] [id number] Univers 16:00:00 16:00:00 ity of [facility] 2019-11-02 2019-11-02 Orders Doctor BROWNE 1.2.840.114 [id number] 00:00:00 00:00:00 Only Unassigned, LUNA [id number] [facility] 4.2.7.2.686 [id number] 2019-11-02 2019-11-02 Orders Doctor PAVAN 1.2.840.114 [id number] Univers 00:00:00 00:00:00 Only Unassigned, LUNA [id number] ity of [facility] 4.2.7.2.686 Chas as [id number] [address] 2019-10-19 2019-10-19 Outpatient R SOWMYA, [facility] [id number] Univers 16:30:00 16:30:00 SHERRY ity [facility] 2019-10-19 2019-10-19 Routine [facility] 1.2.235.915 [id number] 12:46:08 13:38:11 Sherry [place] 350.1.13.10 Visit [place] 4.2.7.2.686 Professio [phone] [address] 2019-10-19 2019-10-19 Routine [facility] [id number] Univers 12:46:08 13:38:11 Sherry [place] [id number] ity of [place] 4[place]2.[place] [phone] Pr dical [address] 2019-10-18 2019-10-18 Outside Cutter Hand 1, [facility] 1.2.840.114 [id number] 15:00:57 16:03:00 Visit Us Room [employer]ER [id number] REGIONAL 4.2.7.2.686 MATERNAL [phone] & CHILD [address] [place] [address] 2019-10-18 2019-10-18 Outside Cutter Hand 1, Pea-Mfm Room [facility] 1.2. 840.114 [id number] Univers 15:00:57 16:03:00 Visit Jag Rowe [employer] [id number] ity of REGIONAL 4.2.7.2.686 [place]as as MATERNAL [phone] Med ical & CHILD [address] [place] [address] 2019-10-18 2019-10-18 Outpatient P [facility] [id number] Univers 14:15:00 14:15:00 ity of [facility] 2019-10-15 2019-10-15 Orders Doctor BROWNE 1.2.840.114 [id number] Univers 00:00:00 00:00:00 Only Unassigned, LUNA 350.1.13.10 ity of [facility] 4.2.7.2.686 Chas [place] [phone] [address] 2019-10-09 2019-10-09 Outside Cutter Hand 2, Adc Lab [facility] 1.2.840.114 [id number] Univers 09:12:58 09:27:58 Visit Sherry Calderon 350.1.13.10 ity of [place] 4[place] [phone] Pr dical nal [address] [facility] 2019-10-09 2019-10-09 Outpatient R [facility] [id number] Univers 08:45:00 08:45:00 ity of [facility] 2019-10-02 2019-10-02 Routine Kyaw Hanson [facility] 1.2.993.728 [id number] Univers 13:04:47 13:39:56 Kush Miller [id number] ity of [place] 4[place] [phone] Pr dical nal [address] [facility] 2019-10-02 2019-10-02 Outpatient R KYAW HANSON [facility] [id number] Univers 13:15:00 13:15:00 ity of [facility] 2019-09-28 2019-09-28 Orders Doctor BROWNE 1.2.840.114 [id number] Univers 00:00:00 00:00:00 Only Unassigned, LUNA 350.1.13.10 ity of [facility] 4.2.7.2.686 Chas as [phone] 38 [address] 2019-09-24 2019-09-24 Case Sowmya [facility] [id number] Univers 00:00:00 00:00:00 Management Sherry Miller [id number] it[place] [phone] Pr dical nal [address] [facility] 2019-09-20 2019-09-20 Telephone Kyaw Hanson [facility] [id number] Univers 00:00:00 00:00:00 Kush Miller 350.1.13.10 [place] [phone] Pr dical nal 134 [facility] 2019-09-19 2019-09-19 Orders Doctor PAVAN [id number] Univers 00:00:00 00:00:00 Only Unassigned, LUNA 350.1.13.10 ity of [place] [facility] 4.2.7.2.686 Chas as [phone] [address] 2019-09-19 2019-09-19 Telephone Sowmya NVPOLLY 1.2.840.114 [id number] Univers 00:00:00 00:00:00 Sherry Miller 350.1.13.10 i [place] [phone] Pr dic[address] 2019-09-18 2019-09-18 Outside Cutter Hand 2, Adc Lab [facility] 1.2.840.114 [id number] Univers 09:33:05 09:48:05 Visit Sherry Calderon 350.1.13.10 it[place] [phone] [facility] [address] [facility] 2019-09-18 2019-09-18 Outpatient R [facility] [place] [id number] Univers 08:45:00 08:45:00 ity of [facility] 2019-09-18 2019-09-18 Case Sowmya NVPOLLY [id number] Univers 00:00:00 00:00:00 Management Sherry Miller 350.1.13.10 it[place] of [place] [phone] Pr dical nal 134 [facility] 2019-09-17 2019-09-17 Routine Sowmya NVPOLLY 1.2.380.111 [id number] Univers 15:34:01 16:01:07 Sherry Miller 350.1.13.10 ity of [place] [phone] Pr dical nal 134 [facility] 2019-09-17 2019-09-17 Outpatient R SOWMYA [facility] [place] [id number] Univers 16:00:00 16:00:00 SHERRY ity [facility] 2019-09-12 2019-09-12 Case Sowmya [facility] [id number] Univers 00:00:00 00:00:00 Management Sherry Angela 350.1.13.10 it[place] [phone] Pr dical nal [address] [facility] 2019-09-11 2019-09-11 Case Kyaw Hanson [facility] [id number] Univers 00:00:00 00:00:00 Management Kush Miller 350.1.13.10 it[place] of [place] [phone] Pr dicwi nal [address] [place] [address] 2019-09-04 2019-09-04 Outside Cutter Hand 2, Adc Lab [facility] 1.2.840.114 [id number] Univers 10:05:43 10:20:43 Visit Hanson Kyaw Kush Miller 350.1.13.10 ity of [place] [phone] Pr dical nal [address] [facility] 2019-09-04 2019-09-04 Outpatient R [facility] [place] [id number] Univers 09:45:00 09:45:00 ity of [facility] 2019-09-03 2019-09-03 Initial Kyaw Hanson [facility] [id number] Univers 14:11:15 15:04:57 [place] 350.1.13.10 ity of [place] [phone] Pr dicwi nal [address] [place] [address] 2019-09-03 2019-09-03 Outpatient R PRUDENCE HANSONEN [facility] [place] [id number] Univers 14:15:00 14:15:00 ity [facility] Results Test Description Test Time Test Comments Results Result Comments Source POCT TEST 2020-01-07 16:27:00 Test Item Value Reference Range Interpretation Comme nts POCT PREG (test code = 1605) Negative On board controls acceptable with C Line (test code = 3574) Yes POCT PREG LOT # (test code = 3575) POCT PREG TEST DATE (test code = 3576) [facility] [id number] 16:27:00 Test Item Value Reference Range Interpretation Comments POCT PREG (test code = 1605) Negative On board controls acceptable with C Yes Line (test code = 3574) POCT PREG LOT # (test code = 3575) POCT PREG TEST DATE (test code = 3576) [facility] [id number] 16:27:00 Test Item Value Reference Range Interpretation Comments POCT PREG (test code = 1605) Negative On board controls acceptable with C Yes Line (test code = 3574) POCT PREG LOT # (test code = 3575) POCT PREG TEST DATE (test code = 3576) [facility] with [id number] 10:24:00 Test Item Value Reference Range Interpretation Comments WBC (test code = See_Comment [Automated 6690-2) message] The sy stem which generated this result transmitted reference range : 4.30 - 11.10 10*3/?L. The reference range was not used to interpret this result as normal/abnormal . RBC (test code = See_Comment L [Automated 789-8) message] The sy stem which generated this result transmitted reference range : 3.93 - 5.25 10*6/?L. The reference range was not used to interpret this result as normal/abnormal . HGB (test code = 10.5 g/dL 11.6-15 L 718-7) HCT (test code = 31.7 % 35.7-45.2 L 4544-3) MCV (test code = 85.0 fL 80.6-95.5 787-2) MCH (test code = 28.2 pg 25.9-32.8 785-6) MCHC (test code = 33.1 g/dL 31.6-35.1 786-4) RDW-SD (test code = 37.6 fL 39-49.9 L 34018-1) RDW-CV (test code = 12.5 % 12-15.5 788-0) PLT (test code = See_Comment L [Automated 777-3) message] The sy stem which generated this result transmitted reference range : 166 - 358 10*3/ ?L. The reference r douglas was not used to interpret this result as normal/abnormal . MPV (test code = 12.3 fL 9.5-12.9 22486-1) NRBC/100 WBC (test See_Comment [Automat ed code = 0221682782) message] The system which generated this result transmitted reference range : 0.0 - 10.0 /100 WBCs. The refer ence range was not u sed to interpret th is result as normal/abnormal . NRBC x10^3 (test code <0.01 See_Comment [Auto mated = 0692411392) message] The s ystem which generated this result transmitted reference range : 10*3/?L. The reference range was not used to interpret this result as normal/abnormal . GRAN MAT (NEUT) % 62.9 % (test code = 770-8) IMM GRAN % (test code 0.40 % = 5705319500) LYMPH % (test code = 27.6 % 736-9) MONO % (test code = 7.1 % 5905-5) EOS % (test code = 1.7 % 713-8) BASO % (test code = 0.3 % 706-2) GRAN MAT x10^3(ANC) 4.49 10*3/uL 1.88-7.09 (test code = 0800733085) IMM GRAN x10^3 (test 0.03 10*3/uL 0-0.06 code = 4997960401) LYMPH x10^3 (test code 1.97 10*3/uL 1.32-3.29 = 731-0) MONO x10^3 (test code 0.51 10*3/uL 0.33-0.92 = 742-7) EOS x10^3 (test code = 0.12 10*3/uL 0.03-0.39 711-2) BASO x10^3 (test code <0.03 0.01-0.07 = 704-7) Lab Interpretation Abnormal (test code = 47574-4) [facility] ONLY - [id number] 06:17:00 Test Item Value Reference Range Interpretation Comments RPR (Qualitative) (test code = Nonreactive Nonreactive 45358-9) Lab Interpretation (test code = Normal 52257-5) [facility] (D) IMMUNE [id number] 00:05:43 Test Item Value Reference Range Interpretation Comments RHIG CANDIDATE? No- see comment Patient i s not a (test code = candidate for R hIg- 5055) Patient is Rh Positive.Perfor med at [facility] Laboratory Services - [facility] Blood [address] [place] [phone] Free: [phone] A No. [id number] [facility] [id number] 19:52:00 Test Item Value Reference Range Interpretation Comments VENOUS BASE EXCESS, mEq/L CORD (test code = 2611114069) VENOUS PH, CORD (test 7.25-7.45 code = 9710259872) VENOUS PC02, CORD See_Comment [Automate d message] The (test code = system which ge nerated 1850678800) this result tra nsmitted reference range : 27 - 49 mmHg. The refer ence range was not used to interpret this result as normal/abnormal . VENOUS PO2, CORD (test See_Comment [Aut omated message] The code = 5032981876) system [facility] generated this result tra nsmitted reference range : 17 - 41 mmHg. The refer ence range was not used to interpret this result as normal/abnormal . VENOUS BICARBONATE, See_Comment [Automa bautista message] The CORD (test code = system whi ch generated 6016734941) this result tra nsmitted reference range : 12 - 29 mEq/L. The refe rence range was not used to interpret this result as normal/abnormal . [facility] Cord [id number] 19:50:00 Test Item Value Reference Range Interpretation Comments BASE EXCESS, CORD mEq/L (test code = 3339876989) AC PH, CORD (BEAKER) 7.18-7.38 (test code = 3637285365) PC02, CORD (test code See_Comment [Auto mated message] The = 7568944027) system which g enerated this result transmit bautista reference range : 32 - 66 mmHg. The refer ence range was not used to interpret this result as normal/abnormal . PO2, CORD (test code See_Comment [Autom ated message] The = 3759541469) system which g enerated this result transmit bautista reference range : 10 - 30 mmHg. The refer ence range was not used to interpret this result as normal/abnormal . BICARBONATE, CORD See_Comment [Automate d message] The (test code = system which ge nerated this 7785132201) result transmit bautista reference range : 17 - 27 mEq/L. The refe rence range was not used to interpret this result as normal/abnormal . [facility] HospitalHepatitis B Surface [id number] 16:24:00 Test Item Value Reference Range Interpretation Comments HBsAg Semi-Quantitative (test code = Negative Negative 5195-3) [facility] 1/2 AG-AB WITH [id number] 12:34:00 Test Item Value Reference Range Interpretation Comments HIV Negative Negative Semi-quantitative (test code = 92853-7) RAYMOND (test code = Non-reactive for HIV-1 RAYMOND) antigen and HIV-1/HIV-2 antibodies. ?No laboratory evidence of HIV infection. ?Repeat in 2-4 weeks if acute HIV infection is suspected. [facility] HospitalType and Screen - ONCE [id number] 10:15:06 Test Item Value Reference Range Interpretation Comments ABO & RH (test code A Positive Performe d at [facility] = 20) Laboratory Serv [facility] [address] [place], [place] [address]Toll Free: [phone] A No. [id number] IAT (test code = Negative Performed a t [facility] 1185) Laboratory Serv [facility] [address] [place], [place] [id number] Free: [phone] A No. [id number] [facility] HospitalCBC with [id number] 09:41:00 Test Item Value Reference Range Interpretation Comments WBC (test code = See_Comment [Automated 6690-2) message] The sy stem which generated this result transmitted reference range : 4.30 - 11.10 10*3/?L. The reference range was not used to interpret this result as normal/abnormal . RBC (test code = See_Comment [Automated 789-8) message] The sy stem which generated this result transmitted reference range : 3.93 - 5.25 10*6/?L. The reference range was not used to interpret this result as normal/abnormal . HGB (test code = 11.6 g/dL 11.6-15 718-7) HCT (test code = 34.8 % 35.7-45.2 L 4544-3) MCV (test code = 83.5 fL 80.6-95.5 787-2) MCH (test code = 27.8 pg 25.9-32.8 785-6) MCHC (test code = 33.3 g/dL 31.6-35.1 786-4) RDW-SD (test code = 37.2 fL 39-49.9 L 25451-7) RDW-CV (test code = 12.4 % 12-15.5 788-0) PLT (test code = See_Comment [Automated 777-3) message] The sy stem which generated this result transmitted reference range : 166 - 358 10*3/ ?L. The reference r douglas was not used to interpret this result as normal/abnormal . MPV (test code = 12.4 fL 9.5-12.9 27948-8) NRBC/100 WBC (test See_Comment [Automat ed code = 1818876786) message] The system which generated this result transmitted reference range : 0.0 - 10.0 /100 WBCs. The refer ence range was not u sed to interpret th is result as normal/abnormal . NRBC x10^3 (test code <0.01 See_Comment [Auto mated = 6838976108) message] The s ystem which generated this result transmitted reference range : 10*3/?L. The reference range was not used to interpret this result as normal/abnormal . GRAN MAT (NEUT) % 62.4 % (test code = 770-8) IMM GRAN % (test code 0.40 % = 3963252421) LYMPH % (test code = 27.1 % 736-9) MONO % (test code = 8.0 % 5905-5) EOS % (test code = 1.6 % 713-8) BASO % (test code = 0.5 % 706-2) GRAN MAT x10^3(ANC) 4.54 10*3/uL 1.88-7.09 (test code = 8656738378) IMM GRAN x10^3 (test 0.03 10*3/uL 0-0.06 code = 3449013724) LYMPH x10^3 (test code 1.97 10*3/uL 1.32-3.29 = 731-0) MONO x10^3 (test code 0.58 10*3/uL 0.33-0.92 = 742-7) EOS x10^3 (test code = 0.12 10*3/uL 0.03-0.39 711-2) BASO x10^3 (test code 0.04 10*3/uL 0.01-0.07 = 704-7) Lab Interpretation Abnormal (test code = 68463-4) [facility] SPECIFIC [id number] 13:28:00 Test Item Value Reference Range Interpretation Comments POCT PH U (test code = 3254) n/a 5-8 POCT U LEUK EST (test code = 3263) n/a Negative - Negative POCT U NIT (test code = 3262) n/a Negative - Negative POCT U PROT (test code = 3259) neg Negative - Negative POCT U GLU (test code = 3256) neg Negative - Negative POCT U KETONE (test code = 3258) n/a Negative - Negative POCT U BLD (test code = 3257) n/a Negative - Negative [facility] W/O SPECIFIC [id number] 14:01:00 Test Item Value Reference Range Interpretation Comments POCT PH U (test code = 3254) N/A 5-8 POCT U LEUK EST (test code = N/A Negative - Negative 3263) POCT U NIT (test code = 3262) N/A Negative - Negative POCT U PROT (test code = 3259) Negative Negative - Negative POCT U GLU (test code = 3256) Negative Negative - Negative POCT U KETONE (test code = 3258) N/A Negative - Negative POCT U BLD (test code = 3257) N/A Negative - Negative [facility]D [facility] W/O SPECIFIC [id number] 21:28:00 Test Item Value Reference Range Interpretation Comments POCT PH U (test code = 3254) n/a 5-8 POCT U LEUK EST (test code = 3263) n/a Negative - Negative POCT U NIT (test code = 3262) n/a Negative - Negative POCT U PROT (test code = 3259) neg Negative - Negative POCT U GLU (test code = 3256) neg Negative - Negative POCT U KETONE (test code = 3258) n/a Negative - Negative POCT U BLD (test code = 3257) n/a Negative - Negative [facility]POSD [facility]AL[facility] W/O SPECIFIC [id number] 18:19:00 Test Item Value Reference Range Interpretation Comments POCT PH U (test code = 3254) 7 mg/dl 5-8 POCT U LEUK EST (test code = trace Negative - Negative 3263) POCT U NIT (test code = 3262) neg Negative - Negative POCT U PROT (test code = 3259) neg Negative - Negative POCT U GLU (test code = 3256) neg Negative - Negative POCT U KETONE (test code = 3258) neg Negative - Negative POCT U BLD (test code = 3257) neg Negative - Negative Lab Interpretation (test code = Abnormal 48186-2) [facility] HR GLUCOSE TOLERANCE [id number] 16:44:00 Test Item Value Reference Range Interpretation Comments GLUC 1 HR (test code = 1484863160) 150 mg/dL 120-170 Lab Interpretation (test code = Normal 02443-3) [facility] HospitalGLUCOSE [id number] 16:43:00 Test Item Value Reference Range Interpretation Comments GLU FASTNG (test code = 5509146893) 78 mg/dL 70-110 Lab Interpretation (test code = Normal 35560-8) [facility]PO[facility] W/O SPECIFIC [id number] 20:46:00 Test Item Value Reference Range Interpretation Comments POCT PH U (test code = 3254) n/a 5-8 POCT U LEUK EST (test code = 3263) n/a Negative - Negative POCT U NIT (test code = 3262) n/a Negative - Negative POCT U PROT (test code = 3259) neg Negative - Negative POCT U GLU (test code = 3256) neg Negative - Negative POCT U KETONE (test code = 3258) n/a Negative - Negative POCT U BLD (test code = 3257) n/a Negative - Negative [facility] / [facility] - DRUG SCREEN [id number] 22:49:00 Test Item Value Reference Range Interpretation Comments BENZO U (test code = Negative Negative 4833124499) ОЛЬГА U (test code = Negative Negative 0927065148) AMPHET (test code = Negative Negative 0909433121) THC (test code = Negative Negative 6268274426) METHADONE (test code = Negative Negative 8995763707) Meth U (test code = Negative Negative 8922108310) OPIATES (test code = Negative Negative 0572162140) Cocaine Metabolite (test Negative Negative code = 7939472978) PROPOXY (test code = Negative Negative 8100502388) Tric U (test code = Negative Negative 0086794975) PCP (test code = Negative Negative 6822318650) OXYCOD (test code = Negative Negative 3790798919) RAYMOND (test code = RAYMOND) Urine Drug Cutoff Ranges Benzodiazepines: ? ? 150 ng/mLBarbiturates: ?200 ng/mLAmphetamine: ? 500 ng/mLCannabinoids: ?50 ?ng/mLMethadone: ? 200 ng/mLMethamphetamine: ? ? 500 ng/mL Opiates: ? 100 ng/mL or 2000 ng/mLCocaine: ? 150 ng/mLPropoxyphene: ?300 ng/mLTricyclics: ?300 ng/mLOxycodone: ? 100 ng/mLPCP: ? 25 ?ng/mL The results are to be used only for medical (i.e., treatment) purposes. Unconfirmed screening results must not be used for non-medical purposes (e.g., employment testing, legal testing). Lab Interpretation (test Normal code = 49854-3) [facility]/O SPECIFIC [id number] 22:25:00 Test Item Value Reference Range Interpretation Comments POCT PH U (test code = 3254) na 5-8 POCT U LEUK EST (test code = 3263) na Negative - Negative POCT U NIT (test code = 3262) na Negative - Negative POCT U PROT (test code = 3259) neg Negative - Negative POCT U GLU (test code = 3256) neg Negative - Negative POCT U KETONE (test code = 3258) na Negative - Negative POCT U BLD (test code = 3257) na Negative - Negative [facility]
--- NOTE | 2022-07-25 14:40 | RAD REPORT ---
EXAM DESCRIPTION: US - 1St Trimest Single 1St Fetus - 07/25/2022 2:20 pm CLINICAL HISTORY: VAGINAL BLEEDING COMPARISON: No comparisons FINDINGS: No IUP identified. The right ovary measures 2 cm x 1.4 cm x 1.6 cm with volume of 2.4 cc. The left ovary measures 2.9 x 1 point III cm with volume of 3.2 cc. Both ovaries have vascular flow. Small volume of pelvic free fluid. No adnexal masses. IMPRESSION: No IUP identified. Therefore, cannot exclude early first trimester , failed fir st trimester , or early ectopic. Bilateral ovarian blood flow.
[2022-07-25 15:05] LABS: Absolute Lymphocytes (CBC) 1.3 K/uL (0.7-4.9); Hematocrit 37.5 % (36.0-45.0); Lymphocytes % 23.8 % (15.3-44.8); MCV 82.4 fL (80-100); MPV 8.9 fL (7.6-11.3); RBC Red Blood Cell Count 4.55 M/uL (3.86-4.86)
[2022-07-25 15:09] LABS: Specific Gravity 1.013 (1.005-1.030); Urine Bacteria None Seen /HPF (<20); Urine Bilirubin NEGATIVE (Negative); Urine Blood 3+ (OVER) (Negative); Urine Clarity Clear (Clear); Urine Color Light-Yellow (Yellow); Urine Glucose NEGATIVE (Negative); Urine Protein NEGATIVE (Negative); Urine RBC >50 /HPF (None Seen); Urine Urobilinogen Normal (Normal)
[2022-07-25 15:10] LABS: Specific Gravity 1.013 (1.005-1.030)
[2022-07-25 15:30] LABS: Potassium 3.8 mEq/L (3.5-5.1)
--- NOTE | 2022-07-25 16:01 | EDPHYS ---
Physician Documentation [facility] Name: Isela Ram Age: 27 yrs Sex: Female : 1995 Arrival Date: 07/25/2022 Time: 12:49 Bed 16 Private MD: ED Physician Pawan Orr HPI: 07/25 19:09 The patient presents to the emergency department with vaginal bleeding. Associated jmm signs and symptoms: Pertinent negatives: abdominal pain, fever, vomiting. This is a 27-year-old female G3, P2 that presents emerged part with complaints of vaginal bleeding beginning earlier today. Denies any weakness or fatigue. Last 2 pregnancies were full-term.. [employer]: 16:19 3, 0, Living 2 db Historical: - Allergies: 13:25 Sulfa (Sulfonamide Antibiotics); nj1 - PMHx: 13:25 Ovarian cyst; Depressive disorder; nj1 - PSHx: 13:25 None; nj1 - Immunization history:: Client reports receiving the 2nd dose of the Covid vaccine. - Social history:: Smoking status: Reported history of juuling and/or vaping. ROS: 19:09 Constitutional: Negative for fever, chills, and weight loss, Cardiovascular: Negative jmm for chest pain, palpitations, and edema, Respiratory: Negative for shortness of breath, cough, wheezing, and pleuritic chest pain. 19:09 : Positive for vaginal bleeding. 19:09 All other systems are negative. Exam: 19:09 Constitutional: This is a well developed, well nourished patient who is awake, alert, jmm and in no acute distress. Head/Face: atraumatic. Eyes: EOMI, no conjunctival erythema appreciated ENT: Moist Mucus Membranes Neck: Trachea midline, Supple Chest/axilla: Normal chest wall appearance and motion. Cardiovascular: Regular rate and rhythm. No edema appreciated Respiratory: Normal respirations, no respiratory distress appreciated Abdomen/GI: Non distended Back: Normal ROM Skin: General appearance color normal 19:09 Musculoskeletal/extremity: ROM: intact in all extremities. 19:09 Skin: Appearance: Color: normal in color. 19:09 Neuro: Orientation: is normal, Mentation: is normal, Memory: is normal. 19:09 Psych: Behavior/mood is pleasant, cooperative, anxious. Vital Signs: 13:21 BP 118 / 78; Pulse 73; Resp 16; Temp 98.3; Pulse Ox 100% ; Weight 63.5 kg; Height 5 ft. nj1 4 in. ; Pain 6/10; 15:00 BP 118 / 78; Pulse 73; Resp 16; Pulse Ox 100% on R/A; db 13:21 Body Mass Index 24.03 (63.50 kg, 162.56 cm) [facility] 13:21 Pain Scale: Adult nj1 MDM: 13:32 Patient medically screened. [facility] 19:09 Data reviewed: vital signs, nurses notes. I considered the following discharge [facility] prescriptions or medication management in the emergency department Medications were administered in the Emergency Department. See MAR. Counseling: I had a detailed discussion with the patient and/or guardian regarding: the historical points, exam findings, and any diagnostic results supporting the discharge/admit diagnosis, lab results, radiology results, the need for outpatient follow up, to return to the emergency department if symptoms worsen or persist or if there are any questions or concerns that arise at home. 07/25 13:25 Order name: Abo/rh Typing; Complete Time: 15:37 [facility] 07/25 13:25 Order name: Basic Metabolic Panel; Complete Time: 15:35 [facility] 07/25 13:25 Order name: CBC with Diff; Complete Time: 15:08 [facility] 07/25 13:25 Order name: Test, Urine; Complete Time: 15:35 [facility] 07/25 13:25 Order name: Quantitative Hcg; Complete Time: 15:35 [facility] 07/25 13:25 Order name: Urinalysis w/ reflexes; Complete Time: 15:35 [facility] 07/25 13:25 Order name: US 1st Trimest Single 1st Fetus; Complete Time: 14:43 [facility] 07/25 13:25 Order name: IV Saline Lock; Complete Time: 14:57 [facility] 07/25 13:25 Order name: Labs collected and sent; Complete Time: 14:57 [facility] 07/25 13:25 Order name: NPO; Complete Time: 14:57 [facility] Administered Medications: No medications were administered Disposition Summary: 07/25/22 16:01 Discharge Ordered Location: Home [facility] Condition: Stable [facility] Diagnosis - Threatened [facility] Followup: [facility] - With: Private Physician - When: 1 - 2 days - Reason: Recheck today's complaints, Continuance of care, Re-evaluation by your physician Discharge Instructions: - Discharge Summary Sheet jmm - Threatened Miscarriage dioni Forms: - Medication Reconciliation Form dioni - Thank You Letter dioni - Antibiotic Education dioni - Prescription Opioid Use dioni Signatures: Dispatcher [employer] Filipe Francis PA PA jmm Jaco, Norma, RN RN nj1
--- NOTE | 2022-07-25 16:01 | ER ---
Nurse's Notes [facility] Name: Isela Ram Age: 27 yrs Sex: Female : 1995 Arrival Date: 07/25/2022 Time: 12:49 Bed 16 Private MD: Diagnosis: Threatened Presentation: 07/25 13:21 Chief complaint: Patient states: 5 weeks . Vaginal bleeding since 11am. Has had nj1 abdominal cramping since Tuesday. . Ebola Screen: Patient denies travel to an Ebola-affected area in the 21 days before illness onset. Initial Sepsis Screen: Does the patient meet any 2 criteria? No. Patient's initial sepsis screen is negative. Does the patient have a suspected source of infection? No. Patient's initial sepsis screen is negative. Risk Assessment: Do you want to hurt yourself or someone else? Patient reports no desire to harm self or others. Onset of symptoms was July 25, 2022 at 11:00. 13:21 Method Of Arrival: Ambulatory [facility] 13:21 Acuity: PEREZ 3 [facility] 13:26 Coronavirus screen: Vaccine status: Patient reports receiving the 2nd dose of the covid nj1 vaccine. Triage Assessment: 14:00 General: Appears in no apparent distress. comfortable, Behavior is calm. 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 - Social history:: Smoking status: Reported history of juuling and/or vaping. Screenin:58 [facility] ED Fall Risk Assessment (Adult) History of falling in the last 3 months, db including since admission No falls in past 3 months (0 pts) Confusion or Disorientation No (0 pts) Intoxicated or Sedated No (0 pts) Impaired Gait No (0 pts) Mobility Assist Device Used No (0 pt) Altered Elimination No (0 pt) Score/Fall Risk Level 0 - 2 = Low Risk Oriented to surroundings, Maintained a safe environment. Abuse screen: Denies threats or abuse. Denies injuries from another. Nutritional screening: No deficits noted. Tuberculosis screening: No symptoms or risk factors identified. Assessment: 14:57 Reassessment: Patient appears in no apparent distress at this time. Patient and/or db family updated on plan of care and expected duration. Pain level reassessed. Patient is alert, oriented x 3, equal unlabored respirations, skin warm/dry/pink. vaginal bleeding 5 weeks started today. General: Appears in no apparent distress. comfortable, Behavior is calm, cooperative. Pain: Complains of pain in pelvis. Respiratory: Airway is patent Respiratory effort is even, unlabored, Respiratory pattern is regular, symmetrical. : Urine is clear. 15:00 Obstetrical Assessment: General assessment: awake and alert, skin warm and dry. db 16:00 Reassessment: Patient appears in no apparent distress at this time. Patient and/or db family updated on plan of care and expected duration. Pain level reassessed. Patient is alert, oriented x 3, equal unlabored respirations, skin warm/dry/pink. General: Appears in no apparent distress. Behavior is anxious. Neuro: Level of Consciousness is awake, alert, obeys commands, Oriented to person, place, time, situation. Vital Signs: 13:21 BP 118 / 78; Pulse 73; Resp 16; Temp 98.3; Pulse Ox 100% ; Weight 63.5 kg; Height 5 ft. nj1 4 in. ; Pain 6/10; 15:00 BP 118 / 78; Pulse 73; Resp 16; Pulse Ox 100% on R/A; db 13:21 Body Mass Index 24.03 (63.50 kg, 162.56 cm) nj1 13:21 Pain Scale: Adult nj1 Vitals: 15:30 Heart Tones unable to obtain. db ED Course: 12:53 Patient arrived in ED. ts1 12:55 Filipe Brice PA is PHCP. jmm 12:55 Pawan Orr MD is Attending Physician. jmm 13:23 Triage completed. nj1 13:27 Arm band placed on right wrist. nj1 14:22 1st Trimest Single 1st Fetus In Process Unspecified. EDMS 14:46 Mady Munguia, SAMIA is Primary Nurse. db 14:58 Inserted saline lock: 20 gauge in left antecubital area, using aseptic technique. Blood db collected. 16:00 Patient has correct armband on for positive identification. Placed in gown. Bed in low db position. Call light in reach. Side rails up X 1. Warm blanket given. 16:00 No provider procedures requiring assistance completed. IV discontinued, intact, db bleeding controlled, No redness/swelling at site. Administered Medications: No medications were administered Medication: 16:00 VIS not applicable for this client. db Outcome: 16:01 Discharge ordered by . dioni 16:05 Discharged to home ambulatory, with family. db 16:05 Condition: stable 16:05 Discharge instructions given to patient, Instructed on discharge instructions, follow up and referral plans. 16:20 Patient left the ED. db Signatures: Dispatcher [employer] EDMS Filipe Brice PA PA jmm Benton, Danielle RN RN db Ondina Bowen RN RN nj1 Claire Tripp, PAS PAS ts1 Corrections: (The following items were deleted from the chart) 13:27 13:21 BP 118 / 78; Pulse 73bpm; Resp 16bpm; Pulse Ox 100%; Temp 98.3F; nj1 nj1
[2022-07-25 16:56] VITALS: BP 118/78; TEMP 98.3; O2SAT 100
== END 2022-07-25 16:20 | disposition home or self-care (01) ==
LOC: ER 12:49
DX: O20.0 Threatened abortion (principal); Z88.2 Allergy status to sulfonamides
CPT/HCPCS: 36415; 76801; 80048; 81001; 81025; 84702; 85025; 86900; 86901; 99284

== ENCOUNTER 2024-10-22 16:22 | Emergency (ER) | payer BC, OTHER ==
--- OUTSIDE RECORDS SUMMARY | 2024-10-22 16:30 | XMS REPORT | Continuity of Care Document ---
Author Name Unknown Address [address] [facility] [place] [address] [facility] [place] Address [address] 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 Name Role Phone Pcp, Patient Does Not Have A Primary Care Physic mark Doctor Unassigned, [place] Attending Clinician U KYAW Whiting Attending Clinician Unavailable Valentin PLATT, Kyaw Currie Attending Clinician [phone] JASMEET GIBBONS Attending Clinician UnaJASMEET Jiang Attending Clinician VERONICA Alfaro Attending Clinician Unavailable VERONICA LUIS Attending Clinician Unavailable Ultrasound, [facility] Attending Clinician Unavaila Veronica Mayer MD Attending Clinician [phone] 2, [facility] Attending Clinician Unavailable Sherry Deng PA-C Attending Clinician [phone] MALKA SALINAS Attending Clinician Unavailable MALKA SALINAS Attending Clinician Unavailable Malka Salinas MD Attending Clinician [phone] Thierno Rn RN, Radha Suazo Attending Clinician Unava Grant Nicolas DO Attending Clinician [phone] SHERRY DENG Attending Clinician Unavailable Only, Adc Test Attending Clinician Unavailable 1, [facility] Room Attending Clinician Unavailab terri Rowe MD, Jga Healy Attending Clinician [phone] THOMASON-SALAZAR, JASMEET Admitting Clinician KYAW Ulrich Admitting Clinician Kyaw Youssef MD Admitting Clinician Payers Payer Name Policy Type Policy Number Effective Date Expirati on Date Source HOLLI CHRISTIAN [id number] 2022 00:00:00 HOLLI CHRISTIAN [id number] 2019 00:00:00 Problems Condition Name Condition Details Condition Category Status Onset Date Resolution Date Last Treatment Date Treating Clinician Comments Source Anxiety disorder, unspecifie d type Anxiety disorder, unspecifie d type Disease Active 1- 00:00: 00 [facility] Back pain in Back pain in Disease Active 2022-02 00:00: 00 [facility] Low lying placenta without hemorrhage , antepartum Low lying placenta without hemorrhage , antepartum Disease Active 2022-02 0- 00:00: 00 Last Assessmen t & Plan: Formattin g of this note might be different from the original. resolved [facility] High-risk in third trimester High-risk in third trimester Disease Active 9-14 00:00: 00 [facility] Nexplanon in place Nexplanon in place Disease Active 2019-02 1-09 00:00: 00 [facility] Encounter for elective induction of labor Encounter for elective induction of labor Disease Active 11-19 00:00: 00 [facility] Liveborn , of luong , born in hospital by vaginal delivery Liveborn , of luong , born in hospital by vaginal delivery Disease Active 922 00:00: 00 [facility] History of loop electrical excision procedure (LEEP) History of loop electrical excision procedure (LEEP) Disease Active - 00:00: 00 [facility] 27 weeks gestation of 27 weeks gestation of Disease Active 09-02 00:00: 00 [facility] 36 weeks gestation of 36 weeks gestation of Disease Active - 00:00: 00 [facility] 38 weeks gestation of 38 weeks gestation of Disease Active 202009-02 00:00: 00 [facility] 39 weeks gestation of 39 weeks gestation of Disease Active 09-02 00:00: 00 [facility] Normal in third trimester Normal in third trimester Disease Active 09-02 00:00: 00 [facility] 32 weeks gestation of 32 weeks gestation of Disease Active 09-02 00:00: 00 [facility] Allergies, Adverse Reactions, Alerts Allergy Name Allergy Type Status Severity Reaction(s) Onset Date Inactive Date Treating Clinician Comments Source Sulfa (Sulfona mide Antibiot ics) Propensi ty to adverse reaction s Active Rash 09-02 00:00: 00 [facility] SULFA (SULFONA MIDE ANTIBIOT ICS) Drug Class Active Rash 09-02 00:00: 00 [facility] Sulfa (Sulfona mide Antibiot ics) Propensi ty to adverse reaction s Active Rash 09-02 00:00: 00 [facility] NO KNOWN ALLERGIE S Drug Class Active [facility] Social History Social Habit Start Date Stop Date Quantity Comments Source ASSERTION 2022-08-08 00:00:00 [facility] Exposure to SARS-CoV-2 (event) Not sure [facility] Alcohol intake 2023-03-10 00:00:00 2023-03-10 00:00:00 Ex-drinker (finding) [facility] History of Social function 2023-02-07 00:00:00 2023-02-07 00:00:00 [facility] Alcohol Comment 2022-11-11 00:00:00 2022-11-11 00:00:00 [facility] Tobacco use and exposure 2022-11-11 00:00:00 2022-11-11 00:00:00 Smokeless tobacco non-user [facility] History of tobacco use 2014-09-02 00:00:00 Cigarette Smoker [facility] Sex Assigned At 1995 00:00:00 1995 00:00:00 [facility] Smoking Status Start Date Stop Date Source Ex-smoker 2022-11-11 00:00:00 2022-11-11 00:00:00 [facility] Medications Ordered Medication Name Filled Medication Name Start Date Stop Date Current Medication? Ordering Clinician Indication Dosage Frequency Signature (SIG) Comments Components Source SERTraline (ZOLOFT) 50 mg tablet 03-10 00:00: 00 Yes [id number] 50mg Take 1 tablet by mouth in the morning. [facility] ondansetron HCl (ZOFRAN ORAL) 2022-02 10:56: 23 02-24 00:00 :00 No Take by mouth. [facility] ergocalcife rol, vitamin D2, (VITAMIN D ORAL) 2022-02 10:56: 17 02-24 00:00 :00 No Take by mouth. [facility] acetaminoph en (TYLENOL) 325 mg tablet 2022-02 10:56: 14 02-24 00:00 :00 No Take by mouth every 6 (six) hours as needed. [facility] cyclobenzap rine 5 mg tablet 2022-02 00:00: 00 03-10 00:00 :00 No [id number] 5mg Take 1 tablet by mouth 3 (three) times daily as needed for Muscle Spasms. [facility] ondansetron HCl (ZOFRAN ORAL) 2022-02 13:12: 57 Yes Take by mouth. [facility] acetaminoph en (TYLENOL) 325 mg tablet 2022-02 20:40: 26 Yes Take by mouth every 6 (six) hours as needed. [facility] ergocalcife rol, vitamin D2, (VITAMIN D ORAL) 2022-02 20:40: 26 Yes Take by mouth. [facility] ondansetron HCl (ZOFRAN ORAL) 2022-02 0 15:59: 39 Yes Take by mouth. [facility] acetaminoph en (TYLENOL) 325 mg tablet 2022-02 22:42: 57 Yes Take by mouth every 6 (six) hours as needed. [facility] ergocalcife rol, vitamin D2, (VITAMIN D ORAL) 2022-02 0 22:42: 57 Yes Take by mouth. [facility] ondansetron HCl (ZOFRAN ORAL) 9 10:09: 17 Yes Take by mouth. [facility] ergocalcife rol, vitamin D2, (VITAMIN D ORAL) 9 10:08: 16 Yes Take by mouth. [facility] ondansetron (ZOFRAN) 4 mg tablet 9 00:00: 00 Yes [id number] 4mg Take 1 tablet by mouth every 8 (eight) hours as needed for Nausea and Vomiting (N/V). [facility] proMETHazin e 12.5 mg suppository 09-29 00:00: 00 02-24 00:00 :00 No May cause drowsiness .Obtain advice for OTCs.Refri gerate.For rectal use. [facility] famotidine 20 mg tablet 09-17 00:00: 00 02-24 00:00 :00 No [facility] etonogestre L (NEXPLANON) implant 68 mg 2019-02 18:00: 00 01-06 17:09 :00 No 68mg [facility] acetaminoph en (TYLENOL) 325 mg tablet 2019-02 16:33: 38 Yes Take by mouth every 6 (six) hours as needed. [facility] acetaminoph en (TYLENOL) 325 mg tablet 2019-02 10:33: 38 Yes Take by mouth every 6 (six) hours as needed. [facility] acetaminoph en (TYLENOL) 325 mg tablet 2019-02 17:15: 14 Yes Take by mouth every 6 (six) hours as needed. [facility] ergocalcife rol, vitamin D2, (VITAMIN D ORAL) 2019-02 17:15: 14 Yes Take by mouth. [facility] ergocalcife rol, vitamin D2, (VITAMIN D ORAL) 2019-02 11:15: 14 Yes Take by mouth. [facility] dicloxacill in 500 mg capsule 2019-02 00:00: 01-06 00:00 :00 No [id number] 500mg Take 1 capsule by mouth 4 (four) times daily for 7 days. [facility] vit calc,iron,f olic ( VITAMIN ORAL) 11-20 12:32: 54 11-20 00:00 :00 No Take by mouth. [facility] vitamin w/FA tablet 11-20 00:00: 00 Yes [id number] 1{tbl} Take 1 tablet by mouth daily. [facility] vitamin w/FA tablet 11-20 00:00: 00 Yes [id number] 1{tbl} Take 1 tablet by mouth daily. [facility] docusate calcium 240 mg capsule 11-20 00:00: 00 01-06 00:00 :00 No [id number] 240mg Take 1 capsule by mouth once daily as needed for Constipati on. [facility] ferrous sulfate 325 mg (65 mg iron) tablet 11-20 00:00: 00 01-06 00:00 :00 No [id number] 325mg Take 1 tablet by mouth 2 (two) times daily. [facility] ibuprofen 600 mg tablet 11-20 00:00: 00 01-06 00:00 :00 No [id number] 600mg Take 1 tablet by mouth every 6 (six) hours as needed (Pain). Take with food or milk. [facility] rho(D) immune globulin (RHOGAM) syringe 300 mcg 11-19 22:07: 39 Yes 300ug 300 mcg, Intramuscu lar, ONCE, For 1 dose, Conditiona l, Routine [facility] HYDROcodone -acetaminop hen (NORCO 5) 5-325 mg tablet 1 tablet 11-19 22:07: 33 Yes 1{tbl} 1 tablet, Oral, Q6HPRN, Starting Tue11/20/19 at 170, Until Discontinu ed, Routine, Pain (scale 7-10) [facility] ibuprofen (IBU) tablet 600 mg 11-19 22:07: 33 Yes 600mg 600 mg, Oral, Q6HPRN, Starting Tue11/20/19 at 170, Until Discontinu ed, Routine, Pain (scale 4-6) [facility] diphenhydrA MINE (BENADRYL) tablet 25 mg 11-19 22:07: 33 Yes 25mg 25 mg, Oral, Q6HPRN, Starting Tue11/20/19 at 1706, Until Discontinu ed, Routine, Sleep, Itching [facility] ondansetron (ZOFRAN (PF)) injection 4 mg 11-19 22:07: 33 Yes 4mg 4 mg, Slow IV Push, Q8HPRN, Starting Tue11/20/19 at 1706, Until Discontinu ed, Routine, Nausea and Vomiting (N/V) [facility] simethicone (GAS RELIEF (SIMETHICON E)) chewable tablet 160 mg 11-19 22:07: 33 Yes 160mg 160 mg, Oral, PC+HSPRN, Starting Tue11/20/19 at 1706, Until Discontinu ed, Routine, Gas [facility] docusate calcium (SURFAK) capsule 240 mg 11-19 22:07: 33 Yes 240mg 240 mg, Oral, QDAILYPRN, Starting Tue11/20/19 at 170, Until Discontinu ed, Routine, Constipati on [facility] magnesium hydroxide (MILK OF MAGNESIA) 400 mg/5 mL suspension 30 mL 11-19 22:07: 33 Yes 30mL 30 mL, Oral, QDAILYPRN, Starting Tue11/20/19 at 170, Until Discontinu ed, Routine, Constipati on [facility] benzocaine- menthol (DERMOPLAST ) 20-0.5 % topical spray 11-19 22:07: 33 Yes Topical, PRN, Starting Tue11/20/19 at 1707, Until Discontinu ed, Routine, Perineum discomfort [facility] acetaminoph en (TYLENOL) tablet 650 mg 11-19 22:07: 32 Yes 650mg 650 mg, Oral, Q6HPRN, Starting Tue11/20/19 at 1707, Until Discontinu ed, Routine, Pain (scale 1-3) [facility] lactated ringers IV infusion 1,000 mL 11-19 15:42: 00 11-19 15:30 :00 No 1000mL at 999 mL/hr, 1,000 mL, IV Infusion, ONCE, 1 dose, Tue11/20/19 at 1045, Routine [facility] D5W-LR IV infusion 1,000 mL 11-19 09:00: 00 11-19 22:07 :40 No 1000mL at 125 mL/hr, IV Infusion, CONTINUOUS , Starting Tue11/20/19 at 0400, Until Tue11/20/19 at 170, Routine [facility] LR 1000 mL + oxytocin 20 units IV Solution 11-19 08:53: 22 11-19 22:07 :40 No 2mU/min at 6-120 mL/hr, IV Infusion, TITRATE, Starting Tue11/20/19 at 0353, Until Tue11/20/19 at 170, JULIA [facility] sodium citrate-cit rain acid (BICITRA) 500-334 mg/5 mL solution 30 mL 11-19 08:52: 25 11-19 15:39 :00 No 30mL 30 mL, Oral, PRE-PROCED URE ONCE, 1 dose, Starting Tue11/20/19 at 0352, Until Discontinu ed, Routine, Surgery/Pr ocedure [facility] vit calc,iron,f olic ( VITAMIN ORAL) 09-02 19:33: 42 Yes Take by mouth. [facility] Immunizations Ordered Immunization Name Filled Immunization Name Date Status Comments Source Influenza Virus Vaccine Quad .5 mL IM 6+ MO 2019-12-18 00:00:00 Completed [facility] Influenza Virus Vaccine Quad .5 mL IM 6+ MO 2019-12-18 00:00:00 Completed [facility] Influenza Virus Vaccine Quad .5 mL IM 6+ MO 2019-12-18 00:00:00 Completed [facility] Influenza Virus Vaccine Quad .5 mL IM 6+ MO 2019-12-18 00:00:00 Completed [facility] Influenza Virus Vaccine Quad .5 mL IM 6+ MO 2019-12-18 00:00:00 Completed [facility] Influenza Virus Vaccine Quad .5 mL IM 6+ MO (FLUZONE/FLULAVAL/F LUARIX) 2019-12-18 00:00:00 Completed [facility] Influenza Virus Vaccine Quad .5 mL IM 6+ MO (FLUZONE/FLULAVAL/F LUARIX) 2019-12-18 00:00:00 Completed [facility] Influenza Virus Vaccine Quad .5 mL IM 6+ MO (FLUZONE/FLULAVAL/F LUARIX) 2019-12-18 00:00:00 Completed [facility] TDAP 2019-09-03 00:00:00 Completed [facility] TDAP 2019-09-03 00:00:00 Completed [facility] TDAP 2019-09-03 00:00:00 Completed [facility] TDAP 2019-09-03 00:00:00 Completed [facility] TDAP 2019-09-03 00:00:00 Completed [facility] TDAP 2019-09-03 00:00:00 Completed [facility] TDAP 2019-09-03 00:00:00 Completed [facility] TDAP 2019-09-03 00:00:00 Completed [facility] TDAP 2019-09-03 00:00:00 Completed [facility] TDAP 2019-09-03 00:00:00 Completed [facility] TDAP 2019-09-03 00:00:00 Completed [facility] TDAP 2019-09-03 00:00:00 Completed [facility] TDAP 2019-09-03 00:00:00 Completed [facility] TDAP 2019-09-03 00:00:00 Completed [facility] TDAP 2019-09-03 00:00:00 Completed [facility] TDAP 2019-09-03 00:00:00 Completed [facility] TDAP 2019-09-03 00:00:00 Completed [facility] TDAP 2019-09-03 00:00:00 Completed [facility] TDAP 2019-09-03 00:00:00 Completed [facility] TDAP 2019-09-03 00:00:00 Completed [facility] TDAP 2019-09-03 00:00:00 Completed [facility] TDAP 2019-09-03 00:00:00 Completed [facility] TDAP 2019-09-03 00:00:00 Completed [facility] TDAP 2019-09-03 00:00:00 Completed [facility] TDAP 2019-09-03 00:00:00 Completed [facility] TDAP 2019-09-03 00:00:00 Completed [facility] TDAP 2019-09-03 00:00:00 Completed [facility] TDAP 2019-09-03 00:00:00 Completed [facility] TDAP 2019-09-03 00:00:00 Completed [facility] TDAP 2019-09-03 00:00:00 Completed [facility] TDAP 2019-09-03 00:00:00 Completed [facility] TDAP 2019-09-03 00:00:00 Completed [facility] TDAP 2019-09-03 00:00:00 Completed [facility] TDAP Unknown Completed [facility] Influenza Virus Vaccine Quad .5 mL IM 6+ MO (FLUZONE/FLULAVAL/F LUARIX) Unknown Completed [facility] Influenza Virus Vaccine Quad IM, Preserv and ABX Free 6 MO-64 YRS (FLUCELVAX) Unknown Completed [facility] TDAP Unknown Completed [facility] Influenza Virus Vaccine Quad .5 mL IM 6+ MO (FLUZONE/FLULAVAL/F LUARIX) Unknown Completed [facility] Influenza Virus Vaccine Quad IM, Preserv and ABX Free 6 MO-64 YRS (FLUCELVAX) Unknown Completed [facility] TDAP Unknown Completed [facility] Influenza Virus Vaccine Quad .5 mL IM 6+ MO (FLUZONE/FLULAVAL/F LUARIX) Unknown Completed [facility] Influenza Virus Vaccine Quad IM, Preserv and ABX Free 6 MO-64 YRS (FLUCELVAX) Unknown Completed [facility] TDAP Unknown Completed [facility] Influenza Virus Vaccine Quad .5 mL IM 6+ MO (FLUZONE/FLULAVAL/F LUARIX) Unknown Completed [facility] Influenza Virus Vaccine Quad IM, Preserv and ABX Free 6 MO-64 YRS (FLUCELVAX) Unknown Completed [facility] TDAP Unknown Completed [facility] Influenza Virus Vaccine Quad .5 mL IM 6+ MO (FLUZONE/FLULAVAL/F LUARIX) Unknown Completed [facility] TDAP Unknown Completed [facility] Influenza Virus Vaccine Quad .5 mL IM 6+ MO (FLUZONE/FLULAVAL/F LUARIX) Unknown Completed [facility] TDAP Unknown Completed [facility] Influenza Virus Vaccine Quad .5 mL IM 6+ MO (FLUZONE/FLULAVAL/F LUARIX) Unknown Completed [facility] TDAP Unknown Completed [facility] Influenza Virus Vaccine Quad .5 mL IM 6+ MO (FLUZONE/FLULAVAL/F LUARIX) Unknown Completed [facility] TDAP Unknown Completed [facility] Influenza Virus Vaccine Quad .5 mL IM 6+ MO (FLUZONE/FLULAVAL/F LUARIX) Unknown Completed [facility] TDAP Unknown Completed [facility] Influenza Virus Vaccine Quad .5 mL IM 6+ MO (FLUZONE/FLULAVAL/F LUARIX) Unknown Completed [facility] TDAP Unknown Completed [facility] Influenza Virus Vaccine Quad .5 mL IM 6+ MO (FLUZONE/FLULAVAL/F LUARIX) Unknown Completed [facility] TDAP Unknown Completed [facility] Influenza Virus Vaccine Quad .5 mL IM 6+ MO (FLUZONE/FLULAVAL/F LUARIX) Unknown Completed [facility] Influenza Virus Vaccine Quad IM, Preserv and ABX Free 6 MO-64 YRS (FLUCELVAX) Unknown Completed [facility] TDAP Unknown Completed [facility] Influenza Virus Vaccine Quad .5 mL IM 6+ MO (FLUZONE/FLULAVAL/F LUARIX) Unknown Completed [facility] Influenza Virus Vaccine Quad IM, Preserv and ABX Free 6 MO-64 YRS (FLUCELVAX) Unknown Completed [facility] TDAP Unknown Completed [facility] Influenza Virus Vaccine Quad .5 mL IM 6+ MO (FLUZONE/FLULAVAL/F LUARIX) Unknown Completed [facility] Influenza Virus Vaccine Quad IM, Preserv and ABX Free 6 MO-64 YRS (FLUCELVAX) Unknown Completed [facility] TDAP Unknown Completed [facility] Influenza Virus Vaccine Quad .5 mL IM 6+ MO (FLUZONE/FLULAVAL/F LUARIX) Unknown Completed [facility] Influenza Virus Vaccine Quad IM, Preserv and ABX Free 6 MO-64 YRS (FLUCELVAX) Unknown Completed [facility] TDAP Unknown Completed [facility] Influenza Virus Vaccine Quad .5 mL IM 6+ MO (FLUZONE/FLULAVAL/F LUARIX) Unknown Completed [facility] Influenza Virus Vaccine Quad IM, Preserv and ABX Free 6 MO-64 YRS (FLUCELVAX) Unknown Completed [facility] TDAP Unknown Completed [facility] Influenza Virus Vaccine Quad .5 mL IM 6+ MO (FLUZONE/FLULAVAL/F LUARIX) Unknown Completed [facility] Influenza Virus Vaccine Quad IM, Preserv and ABX Free 6 MO-64 YRS (FLUCELVAX) Unknown Completed [facility] TDAP Unknown Completed [facility] Influenza Virus Vaccine Quad .5 mL IM 6+ MO (FLUZONE/FLULAVAL/F LUARIX) Unknown Completed [facility] Influenza Virus Vaccine Quad IM, Preserv and ABX Free 6 MO-64 YRS (FLUCELVAX) Unknown Completed [facility] TDAP Unknown Completed [facility] Influenza Virus Vaccine Quad .5 mL IM 6+ MO (FLUZONE/FLULAVAL/F LUARIX) Unknown Completed [facility] Influenza Virus Vaccine Quad IM, Preserv and ABX Free 6 MO-64 YRS (FLUCELVAX) Unknown Completed [facility] TDAP Unknown Completed [facility] Influenza Virus Vaccine Quad .5 mL IM 6+ MO (FLUZONE/FLULAVAL/F LUARIX) Unknown Completed [facility] Influenza Virus Vaccine Quad IM, Preserv and ABX Free 6 MO-64 YRS (FLUCELVAX) Unknown Completed [facility] TDAP Unknown Completed [facility] Influenza Virus Vaccine Quad .5 mL IM 6+ MO (FLUZONE/FLULAVAL/F LUARIX) Unknown Completed [facility] Influenza Virus Vaccine Quad IM, Preserv and ABX Free 6 MO-64 YRS (FLUCELVAX) Unknown Completed [facility] TDAP Unknown Completed [facility] Influenza Virus Vaccine Quad .5 mL IM 6+ MO (FLUZONE/FLULAVAL/F LUARIX) Unknown Completed [facility] Influenza Virus Vaccine Quad IM, Preserv and ABX Free 6 MO-64 YRS (FLUCELVAX) Unknown Completed [facility] TDAP Unknown Completed [facility] Influenza Virus Vaccine Quad .5 mL IM 6+ MO (FLUZONE/FLULAVAL/F LUARIX) Unknown Completed [facility] Influenza Virus Vaccine Quad IM, Preserv and ABX Free 6 MO-64 YRS (FLUCELVAX) Unknown Completed [facility] Vital Signs Vital Name Observation Time Observation Value Comments S ource Systolic blood pressure 2023-03-10 20:35:00 101 mm[Hg] [facility] Diastolic blood pressure 2023-03-10 20:35:00 71 mm[Hg] [facility] Heart rate 2023-03-10 20:35:00 87 /min [facility] Body temperature 2023-03-10 20:35:00 36.61 Karen [facility] Body height 2023-03-10 20:35:00 162.6 cm [facility] Body weight 2023-03-10 20:35:00 73.846 kg [facility] BMI 2023-03-10 20:35:00 27.94 kg/m2 [facility] Systolic blood pressure 2023-03-08 06:00:00 109 mm[Hg] [facility] Diastolic blood pressure 2023-03-08 06:00:00 70 mm[Hg] [facility] Heart rate 2023-03-08 06:00:00 87 /min [facility] Oxygen saturation in Arterial blood by Pulse oximetry 2023-03-08 06:00:00 100 /min [facility] Body temperature 2023-03-08 04:00:00 36.39 Karen [facility] Respiratory rate 2023-03-08 04:00:00 18 /min [facility] Body height 2023-03-08 04:00:00 162.6 cm Simultaneous filing. User may not have seen previous data. [facility] Body weight 2023-03-08 04:00:00 73.528 kg Simultaneous filing. User may not have seen previous data. [facility] BMI 2023-03-08 04:00:00 27.82 kg/m2 [facility] Systolic blood pressure 2023-02-24 16:46:00 105 mm[Hg] [facility] Diastolic blood pressure 2023-02-24 16:46:00 72 mm[Hg] [facility] Heart rate 2023-02-24 16:46:00 83 /min [facility] Body temperature 2023-02-24 16:46:00 36.78 Karen [facility] Respiratory rate 2023-02-24 16:46:00 18 /min [facility] Body height 2023-02-24 16:46:00 167.6 cm [facility] Body weight 2023-02-24 16:46:00 71.124 kg [facility] [facility] BMI 2023-02-24 16:46:00 25.31 kg/m2 [facility] Oxygen saturation in Arterial blood by Pulse oximetry 2023-02-24 16:46:00 98 /min [facility] Systolic blood pressure 2023-02-07 20:29:00 102 mm[Hg] [facility] Diastolic blood pressure 2023-02-07 20:29:00 63 mm[Hg] [facility] Heart rate 2023-02-07 20:29:00 86 /min [facility] Body temperature 2023-02-07 20:29:00 36.39 Karen [facility] Respiratory rate 2023-02-07 20:29:00 17 /min [facility] Body height 2023-02-07 20:29:00 167.6 cm [facility] Body weight 2023-02-07 20:29:00 71.033 kg [facility] BMI 2023-02-07 20:29:00 25.28 kg/m2 [facility] Systolic blood pressure 2023-01-26 19:14:00 106 mm[Hg] [facility] Diastolic blood pressure 2023-01-26 19:14:00 69 mm[Hg] [facility] Heart rate 2023-01-26 19:14:00 78 /min [facility] Body temperature 2023-01-26 19:14:00 36.17 Karen [facility] Body height 2023-01-26 19:14:00 162.6 cm [facility] Body weight 2023-01-26 19:14:00 69.582 kg [facility] BMI 2023-01-26 19:14:00 26.33 kg/m2 [facility] Heart rate 2023-01-19 01:00:00 87 /min [facility] Body temperature 2023-01-19 01:00:00 36.67 Karen [facility] Respiratory rate 2023-01-19 01:00:00 17 /min [facility] Body height 2023-01-19 01:00:00 162.6 cm [facility] Body weight 2023-01-19 01:00:00 68.584 kg [facility] BMI 2023-01-19 01:00:00 25.95 kg/m2 [facility] Systolic blood pressure 2023-01-19 00:38:00 113 mm[Hg] [facility] Diastolic blood pressure 2023-01-19 00:38:00 71 mm[Hg] [facility] Oxygen saturation in Arterial blood by Pulse oximetry 2023-01-19 00:38:00 100 /min [facility] Systolic blood pressure 2022-12-28 20:58:00 114 mm[Hg] [facility] Diastolic blood pressure 2022-12-28 20:58:00 59 mm[Hg] [facility] Heart rate 2022-12-28 20:58:00 76 /min [facility] Body height 2022-12-28 20:58:00 160 cm [facility] Body weight 2022-12-28 20:58:00 67.314 kg [facility] BMI 2022-12-28 20:58:00 26.29 kg/m2 [facility] Systolic blood pressure 2022-11-30 15:34:00 102 mm[Hg] [facility] Diastolic blood pressure 2022-11-30 15:34:00 65 mm[Hg] [facility] Heart rate 2022-11-30 15:34:00 91 /min [facility] Body temperature 2022-11-30 15:34:00 36.33 Karen [facility] Body height 2022-11-30 15:34:00 160 cm [facility] Body weight 2022-11-30 15:34:00 65.137 kg [facility] BMI 2022-11-30 15:34:00 25.44 kg/m2 [facility] Systolic blood pressure 2022-11-30 02:49:00 106 mm[Hg] [facility] Diastolic blood pressure 2022-11-30 02:49:00 62 mm[Hg] [facility] Heart rate 2022-11-30 02:49:00 80 /min [facility] Body temperature 2022-11-30 02:49:00 36.89 Karen [facility] Respiratory rate 2022-11-30 02:49:00 16 /min [facility] Body height 2022-11-30 02:19:00 160 cm [facility] Body weight 2022-11-30 02:19:00 67.405 kg [facility] BMI 2022-11-30 02:19:00 26.32 kg/m2 [facility] Oxygen saturation in Arterial blood by Pulse oximetry 2022-11-30 02:19:00 100 /min [facility] Systolic blood pressure 2022-11-11 15:07:00 103 mm[Hg] [facility] Diastolic blood pressure 2022-11-11 15:07:00 70 mm[Hg] [facility] Heart rate 2022-11-11 15:07:00 91 /min [facility] Body temperature 2022-11-11 15:07:00 36.61 Karen [facility] Body height 2022-11-11 15:07:00 162.6 cm [facility] Body weight 2022-11-11 15:07:00 64.32 kg [facility] BMI 2022-11-11 15:07:00 24.34 kg/m2 [facility] Systolic blood pressure 2020-01-07 16:17:00 102 mm[Hg] [facility] Diastolic blood pressure 2020-01-07 16:17:00 70 mm[Hg] [facility] Heart rate 2020-01-07 16:17:00 73 /min [facility] Body temperature 2020-01-07 16:17:00 36.72 Karen [facility] Respiratory rate 2020-01-07 16:17:00 18 /min [facility] Body weight 2020-01-07 16:17:00 60.963 kg [facility] BMI 2020-01-07 16:17:00 23.07 kg/m2 [facility] Systolic blood pressure 2020-01-03 17:13:00 93 mm[Hg] [facility] Diastolic blood pressure 2020-01-03 17:13:00 57 mm[Hg] [facility] Heart rate 2020-01-03 17:13:00 71 /min [facility] Body temperature 2020-01-03 17:13:00 36.5 Karen [facility] Respiratory rate 2020-01-03 17:13:00 18 /min [facility] Body weight 2020-01-03 17:13:00 61.054 kg [facility] BMI 2020-01-03 17:13:00 23.10 kg/m2 [facility] Systolic blood pressure 2019-12-18 18:42:00 104 mm[Hg] [facility] Diastolic blood pressure 2019-12-18 18:42:00 70 mm[Hg] [facility] Heart rate 2019-12-18 18:42:00 67 /min [facility] Body temperature 2019-12-18 18:42:00 36.78 Karen [facility] Respiratory rate 2019-12-18 18:42:00 16 /min [facility] Body height 2019-12-18 18:42:00 162.6 cm [facility] Body weight 2019-12-18 18:42:00 60.782 kg [facility] BMI 2019-12-18 18:42:00 23.00 kg/m2 [facility] Systolic blood pressure 2019-12-18 18:42:00 104 mm[Hg] [facility] Diastolic blood pressure 2019-12-18 18:42:00 70 mm[Hg] [facility] Heart rate 2019-12-18 18:42:00 67 /min [facility] Body temperature 2019-12-18 18:42:00 36.78 Karen [facility] Respiratory rate 2019-12-18 18:42:00 16 /min [facility] Body height 2019-12-18 18:42:00 162.6 cm [facility] Body weight 2019-12-18 18:42:00 60.782 kg [facility] BMI 2019-12-18 18:42:00 23.00 kg/m2 [facility] Systolic blood pressure 2019-11-21 17:07:00 116 mm[Hg] [facility] Diastolic blood pressure 2019-11-21 17:07:00 70 mm[Hg] [facility] Heart rate 2019-11-21 17:07:00 80 /min [facility] Body temperature 2019-11-21 17:07:00 37 Karen [facility] Respiratory rate 2019-11-21 17:07:00 18 /min [facility] Oxygen saturation in Arterial blood by Pulse oximetry 2019-11-21 17:07:00 100 /min [facility] Body height 2019-11-20 09:00:00 162.6 cm [facility] Body weight 2019-11-20 09:00:00 69.854 kg [facility] BMI 2019-11-20 09:00:00 26.43 kg/m2 [facility] Systolic blood pressure 2019-11-21 17:07:00 116 mm[Hg] [facility] Diastolic blood pressure 2019-11-21 17:07:00 70 mm[Hg] [facility] Heart rate 2019-11-21 17:07:00 80 /min [facility] Body temperature 2019-11-21 17:07:00 37 Karen [facility] Respiratory rate 2019-11-21 17:07:00 18 /min [facility] Oxygen saturation in Arterial blood by Pulse oximetry 2019-11-21 17:07:00 100 /min [facility] Body height 2019-11-20 09:00:00 162.6 cm [facility] Body weight 2019-11-20 09:00:00 69.854 kg [facility] BMI 2019-11-20 09:00:00 26.43 kg/m2 [facility] Systolic blood pressure 2019-11-13 13:26:00 98 mm[Hg] [facility] Diastolic blood pressure 2019-11-13 13:26:00 68 mm[Hg] [facility] Heart rate 2019-11-13 13:26:00 70 /min [facility] Body temperature 2019-11-13 13:26:00 36.83 Karen [facility] Respiratory rate 2019-11-13 13:26:00 18 /min [facility] Body height 2019-11-13 13:26:00 162.6 cm [facility] Body weight 2019-11-13 13:26:00 68.947 kg [facility] BMI 2019-11-13 13:26:00 26.09 kg/m2 [facility] Systolic blood pressure 2019-11-13 13:26:00 98 mm[Hg] [facility] Diastolic blood pressure 2019-11-13 13:26:00 68 mm[Hg] [facility] Heart rate 2019-11-13 13:26:00 70 /min [facility] Body temperature 2019-11-13 13:26:00 36.83 Karen [facility] Respiratory rate 2019-11-13 13:26:00 18 /min [facility] Body height 2019-11-13 13:26:00 162.6 cm [facility] Body weight 2019-11-13 13:26:00 68.947 kg [facility] BMI 2019-11-13 13:26:00 26.09 kg/m2 [facility] Systolic blood pressure 2019-11-08 13:59:00 107 mm[Hg] [facility] Diastolic blood pressure 2019-11-08 13:59:00 71 mm[Hg] [facility] Heart rate 2019-11-08 13:59:00 73 /min [facility] Body temperature 2019-11-08 13:59:00 36.5 Karen [facility] Respiratory rate 2019-11-08 13:59:00 18 /min [facility] Body height 2019-11-08 13:59:00 162.6 cm [facility] Body weight 2019-11-08 13:59:00 68.493 kg [facility] BMI 2019-11-08 13:59:00 25.92 kg/m2 [facility] Systolic blood pressure 2019-11-08 13:59:00 107 mm[Hg] [facility] Diastolic blood pressure 2019-11-08 13:59:00 71 mm[Hg] [facility] Heart rate 2019-11-08 13:59:00 73 /min [facility] Body temperature 2019-11-08 13:59:00 36.5 Karen [facility] Respiratory rate 2019-11-08 13:59:00 18 /min [facility] Body height 2019-11-08 13:59:00 162.6 cm [facility] Body weight 2019-11-08 13:59:00 68.493 kg [facility] BMI 2019-11-08 13:59:00 25.92 kg/m2 [facility] Systolic blood pressure 2019-11-02 21:25:00 108 mm[Hg] [facility] Diastolic blood pressure 2019-11-02 21:25:00 64 mm[Hg] [facility] Heart rate 2019-11-02 21:25:00 85 /min [facility] Body temperature 2019-11-02 21:25:00 36.67 Karen [facility] Respiratory rate 2019-11-02 21:25:00 18 /min [facility] Body height 2019-11-02 21:25:00 160 cm [facility] Body weight 2019-11-02 21:25:00 68.04 kg [facility] BMI 2019-11-02 21:25:00 26.57 kg/m2 [facility] Systolic blood pressure 2019-11-02 21:25:00 108 mm[Hg] [facility] Diastolic blood pressure 2019-11-02 21:25:00 64 mm[Hg] [facility] Heart rate 2019-11-02 21:25:00 85 /min [facility] Body temperature 2019-11-02 21:25:00 36.67 Karen [facility] Respiratory rate 2019-11-02 21:25:00 18 /min [facility] Body height 2019-11-02 21:25:00 160 cm [facility] Body weight 2019-11-02 21:25:00 68.04 kg [facility] BMI 2019-11-02 21:25:00 26.57 kg/m2 [facility] Systolic blood pressure 2019-10-19 18:20:00 108 mm[Hg] [facility] Diastolic blood pressure 2019-10-19 18:20:00 69 mm[Hg] [facility] Heart rate 2019-10-19 18:20:00 87 /min [facility] Body temperature 2019-10-19 18:20:00 36.56 Karen [facility] Respiratory rate 2019-10-19 18:20:00 18 /min [facility] Body height 2019-10-19 18:20:00 160 cm [facility] Body weight 2019-10-19 18:20:00 65.953 kg [facility] BMI 2019-10-19 18:20:00 25.76 kg/m2 [facility] Systolic blood pressure 2019-10-19 18:20:00 108 mm[Hg] [facility] Diastolic blood pressure 2019-10-19 18:20:00 69 mm[Hg] [facility] Heart rate 2019-10-19 18:20:00 87 /min [facility] Body temperature 2019-10-19 18:20:00 36.56 Karen [facility] Respiratory rate 2019-10-19 18:20:00 18 /min [facility] Body height 2019-10-19 18:20:00 160 cm [facility] Body weight 2019-10-19 18:20:00 65.953 kg [facility] BMI 2019-10-19 18:20:00 25.76 kg/m2 [facility] Systolic blood pressure 2019-10-02 18:18:00 95 mm[Hg] [facility] Diastolic blood pressure 2019-10-02 18:18:00 67 mm[Hg] [facility] Heart rate 2019-10-02 18:18:00 89 /min [facility] Body temperature 2019-10-02 18:18:00 36.78 Karen [facility] Respiratory rate 2019-10-02 18:18:00 18 /min [facility] Body height 2019-10-02 18:18:00 160 cm [facility] Body weight 2019-10-02 18:18:00 64.864 kg [facility] BMI 2019-10-02 18:18:00 25.33 kg/m2 [facility] Systolic blood pressure 2019-09-17 20:48:00 97 mm[Hg] [facility] Diastolic blood pressure 2019-09-17 20:48:00 63 mm[Hg] [facility] Heart rate 2019-09-17 20:48:00 81 /min [facility] Body temperature 2019-09-17 20:48:00 36.78 Karen [facility] Respiratory rate 2019-09-17 20:48:00 16 /min [facility] Body height 2019-09-17 20:48:00 165.1 cm [facility] Body weight 2019-09-17 20:48:00 64.229 kg [facility] BMI 2019-09-17 20:48:00 23.56 kg/m2 [facility] Systolic blood pressure 2019-09-03 19:29:00 105 mm[Hg] [facility] Diastolic blood pressure 2019-09-03 19:29:00 63 mm[Hg] [facility] Heart rate 2019-09-03 19:29:00 94 /min [facility] Body temperature 2019-09-03 19:29:00 36.72 Karen [facility] Respiratory rate 2019-09-03 19:29:00 18 /min [facility] Body height 2019-09-03 19:29:00 165.1 cm [facility] Body weight 2019-09-03 19:29:00 64.411 kg [facility] BMI 2019-09-03 19:29:00 23.63 kg/m2 [facility] Procedures Procedure Date / Time Performed Performing Clinician Source TDAP VACCINE, >11 YRS, IM 2023-03-10 20:36:38 Katerine Hanson [facility] AUTHORIZATION FOR RELEASE OF PHI 2023-03-10 06:01:00 Doctor Unassigned, [place] [facility] POCT URINALYSIS W/O SPECIFIC GRAVITY 2023-03-10 00:00:00 Kyaw Hansno [facility] URINALYSIS 2023-03-08 04:51:00 Jasmeet Gibbons [facility] NOTICE OF PRIVACY PRACTICES 2023-03-08 03:35:03 Doctor Unassigned, [place] [facility] CONSENT/REFUSAL FOR DIAGNOSIS AND TREATMENT 2023-03-08 03:34:01 Doctor Unassigned, [place] [facility] SECOND AND THIRD TRIMESTER ULTRASOUND 2023-03-01 15:19:00 Kyaw Hanson [facility] POCT URINALYSIS W/O SPECIFIC GRAVITY 2023-02-24 00:00:00 Kyaw Hanson [facility] POCT URINALYSIS W/O SPECIFIC GRAVITY 2023-02-07 00:00:00 Kyaw Hanson [facility] GLUCOSE 1 HOUR POST PRANDIAL 2023-01-27 16:28:00 Kyaw Hanson [facility] CBC WITH DIFF 2023-01-27 16:28:00 Kyaw Hanson [facility] POCT URINALYSIS W/O SPECIFIC GRAVITY 2023-01-26 00:00:00 Kyaw Hanson [facility] ADC CLC OR LCC ONLY - WET PREP 2023-01-19 01:29:00 Jasmeet Gibbons [facility] NOTICE OF PRIVACY PRACTICES 2023-01-19 00:30:46 Doctor Unassigned, [place] [facility] ASSIGNMENT OF BENEFITS 2023-01-19 00:30:10 Docto r Unassigned, [place] [facility] CONSENT/REFUSAL FOR DIAGNOSIS AND TREATMENT 2023-01-19 00:29:48 Doctor Unassigned, [place] [facility] FLU VACC ([id number]), 6 MO-64 YRS, .5ML, IM, QUAD (FLUCELVAX) 2022-12-28 21:04:45 Kyaw Hanson [facility] POCT URINALYSIS W/O SPECIFIC GRAVITY 2022-12-28 00:00:00 Kyaw Hanson [facility] SECOND AND THIRD TRIMESTER ULTRASOUND 2022-12-08 18:30:00 Kyaw Hanson [facility] CONSENT/REFUSAL FOR DIAGNOSIS AND TREATMENT 2022-11-30 02:08:06 Doctor Unassigned, [place] [facility] POCT URINALYSIS W/O SPECIFIC GRAVITY 2022-11-30 00:00:00 Sherry Deng [facility] EXTERNAL PROVIDER RECORDS 2022-11-29 05:01:00 Do ctor Unassigned, [place] [facility] ASSIGNMENT OF BENEFITS 2022-11-11 14:50:49 Docto r Unassigned, [place] [facility] POCT URINALYSIS W/O SPECIFIC GRAVITY 2022-11-11 00:00:00 Kyaw Hanson [facility] POCT TEST 2020-01-07 00:00:00 Kyaw Hanson [facility] FLU VACC ([id number]), 6+ MONTHS, IM, QUAD 2019-12-18 19:08:58 Sherry Deng [facility] CBC WITH DIFF 2019-11-21 08:47:00 Kyaw Hanson [facility] VENOUS CORD GAS 2019-11-20 19:44:00 Valentin [facility] HIV 1/2 AG-AB WITH REFLEX 2019-11-20 09:13:00 Katerine Hanson [facility] CBC WITH DIFF 2019-11-20 09:11:00 Kyaw Hanson [facility] HEPATITIS B SURFACE ANTIGEN 2019-11-20 09:11:00 Kyaw Hanson [facility] ADC OR BEATRIS ONLY - RPR 2019-11-20 09:11:00 Katerine Hanson [facility] HB ABO GROUPING 2019-11-20 09:05:00 Valentin [facility] RHO (D) IMMUNE GLOBULIN 2019-11-20 09:05:00 Valentin Kyaw [facility] CONSENT/REFUSAL FOR DIAGNOSIS AND TREATMENT 2019-11-19 18:31:17 Doctor Unassigned, [place] [facility] ASSIGNMENT OF BENEFITS 2019-11-19 18:30:58 Docto r Unassigned, [place] [facility] CONSENT/REFUSAL FOR DIAGNOSIS AND TREATMENT 2019-11-13 14:13:26 Doctor Unassigned, [place] [facility] ASSIGNMENT OF BENEFITS 2019-11-13 14:13:08 Docto r Unassigned, [place] [facility] POCT URINALYSIS W/O SPECIFIC GRAVITY 2019-11-13 00:00:00 Kyaw Hanson [facility] POCT URINALYSIS W/O SPECIFIC GRAVITY 2019-11-08 00:00:00 Sherry Deng [facility] DSU PRE-OP 2019-11-02 05:01:00 Doctor Unass igned, [place] [facility] POCT URINALYSIS W/O SPECIFIC GRAVITY 2019-11-02 00:00:00 Kyaw Hanson [facility] POCT URINALYSIS W/O SPECIFIC GRAVITY 2019-10-19 00:00:00 Sherry Deng [facility] SECOND AND THIRD TRIMESTER ULTRASOUND 2019-10-18 20:34:00 Kyaw Hanson [facility] INSURANCE CORRESPONDENCE 2019-10-15 05:01:00 Doc tor Unassigned, [place] [facility] 1 HR GLUCOSE TOLERANCE TEST 2019-10-09 15:15:00 Sherry Deng [facility] GLUCOSE FASTING 2019-10-09 14:17:00 Sherry Deng [facility] EXTERNAL PROVIDER RECORDS 2019-09-28 05:01:00 Do ctor Unassigned, [place] [facility] EXTERNAL PROVIDER RECORDS 2019-09-19 05:01:00 Do ctor Unassigned, [place] [facility] POCT URINALYSIS W/O SPECIFIC GRAVITY 2019-09-17 20:46:00 Sherry Deng [facility] ADC / LCC - DRUG SCREEN TRIAGE 2019-09-03 20:54:00 Kyaw Hanson [facility] TDAP VACCINE, >11 YRS, IM 2019-09-03 19:54:21 Katerine Hanson [facility] POCT URINALYSIS W/O SPECIFIC GRAVITY 2019-09-03 00:00:00 Kyaw Hanson [facility] Encounters Start Date/Time End Date/Time Encounter Type Admission Type Attending [facility] Care Facility Care Department Encounter ID Source 2023-03-08 00:49:06 Outpatient X [facility] [id number] [facility] 2023-01-18 20:40:33 Outpatient X [facility] [id number] [facility] 2022-11-29 22:43:08 Outpatient X [facility] [id number] [facility] 2020-12-26 17:33:09 Outpatient P [facility] [id number] [facility] 2023-04-19 00:00:00 2023-04-19 00:00:00 Patient Secure Msg Doctor Unassigned, [place] [facility] 1..840.114 350.1.13.10 4.2.7.2.686 [id number] [facility] 2023-03-10 14:45:00 2023-03-10 14:50:51 Outpatient R KYAW HANSON [facility] [id number] [facility] 2023-03-10 14:45:00 2023-03-10 14:50:51 Routine Visit Kyaw Hanson [facility] 1..840.114 350.1.13.10 4.2.7.2.686 [id number] [facility] 2023-03-10 00:00:00 2023-03-10 00:00:00 Orders Only Doctor Unassigned, [place] [facility] ..840.114 350.1.13.10 4.2.7.2.686 [id number] [facility] 2023-03-07 21:49:00 2023-03-08 00:33:00 Outpatient X THOMASON-TANIA S, JASMEET THOMASON-TANIA S, JASMEET [facility] [id number] [facility] 2023-03-07 21:49:00 2023-03-08 00:33:00 Emergency Thoamson-Tania sAnJasmeet [facility] 1.114 350.1.13.10 4.2.7.2.686 [id number] [facility] 2023-03-07 00:00:00 2023-03-07 00:00:00 Orders Only Doctor Unassigned, [place] [facility] 1.114 350.1.13.10 4.2.7.2.686 [id number] [facility] 2023-03-07 00:00:00 2023-03-07 00:00:00 Patient Secure Msg Kyaw Hanson [facility] 1..114 350.1.13.10 4.2.7.2.686 [id number] [facility] 2023-03-01 09:00:00 2023-03-01 09:19:22 Outpatient VERONICA PIERRE SANGE[facility]A [facility] [id number] [facility] 2023-03-01 09:00:00 2023-03-01 09:19:22 Quantitative Analyst Marketing Visit Ultrasound, Veronica Wyatt [facility] 1.114 350.1.13.10 4.2.7.2.686 [id number] [facility] 2023-03-01 00:00:00 2023-03-01 00:00:00 Patient Secure Msg Doctor Unassigned, [place] [facility] 1.114 350.1.13.10 4.2.7.2.686 [id number] [facility] 2023-02-24 10:45:00 2023-02-24 10:57:51 Outpatient R KYAW HANSON [facility] [id number] [facility] 2023-02-24 10:45:00 2023-02-24 10:57:51 Routine Visit Kyaw Hanson [facility] 1.2.840.114 350.1.13.10 4.2.7.2.686 [id number] [facility] 2023-02-07 14:15:00 2023-02-07 14:42:24 Outpatient R KYAW HANSON [facility] [id number] [facility] 2023-02-07 14:15:00 2023-02-07 14:42:24 Routine Visit Kyaw Hanson [facility] 1.2.840.114 350.1.13.10 4.2.7.2.686 [id number] 134 [id number] [facility] 2023-01-27 09:15:00 2023-01-27 10:28:40 Outpatient R KYAW HANSON [facility] [id number] [facility] 2023-01-27 09:15:00 2023-01-27 10:28:40 Quantitative Analyst Marketing Visit 2, Adc Lab Kyaw Hanson [facility] 1.2.840.114 350.1.13.10 4.2.7.2.686 [id number] [facility] 2023-01-26 13:00:00 2023-01-26 13:35:33 Outpatient R KYAW HANSON [facility] [id number] [facility] 2023-01-26 13:00:00 2023-01-26 13:35:33 Routine Visit Kyaw Hanson [facility] 1.2.840.114 350.1.13.10 4.2.7.2.686 [id number] [facility] 2023-01-18 18:40:00 2023-01-18 20:10:00 Outpatient X RHODA S, JASMEET RHODA S, JASMEET [facility] [id number] [facility] 2023-01-18 18:40:00 2023-01-18 20:10:00 Emergency Paddy-Tania s, Jasmeet [facility] 1.2.840.114 350.1.13.10 4.2.7.2.686 [id number] [id number] [facility] 2023-01-18 00:00:00 2023-01-18 00:00:00 Telephone Kyaw Hanson [facility] BUILDING 1.2.840.114 350.1.13.10 4.2.7.2.686 [id number] 134 [id number] [facility] 2023-01-18 00:00:00 2023-01-18 00:00:00 Patient Secure Msg Deng Sherry [facility] BUILDING 1.2.840.114 350.1.13.10 4.2.7.2.686 [id number] 134 [id number] [facility] 2022-12-28 16:00:00 2022-12-28 16:15:00 Routine Visit Kyaw Hanson [facility] BU[facility] 1.2.840.114 350.1.13.10 4.2.7.2.686 [id number] [facility] 2022-12-28 16:00:00 2022-12-28 16:00:00 Outpatient R KYAW HANSON [facility] [id number] [facility] 2022-12-10 00:00:00 2022-12-10 00:00:00 Telephone Kyaw Hanson [facility] BUILDING 1.2.840.114 350.1.13.10 4.2.7.2.686 [id number] 134 [id number] [facility] 2022-12-08 13:00:00 2022-12-08 14:01:42 Outpatient P MALKA SALINAS SHANNON [facility] [id number] [facility] 2022-12-08 13:00:00 2022-12-08 14:01:42 Quantitative Analyst Marketing Visit Ultrasound, Malka Cole [facility] [employer] [facility] MATERNAL & CHILD [facility] 1..114 350.1.13.10 4.2.7.2.686 [id number] [facility] 2022-11-30 10:30:00 2022-11-30 10:45:00 Routine Visit Sherry Deng [facility] 1..114 350.1.13.10 4.2.7.2.686 [id number] 134 [id number] [facility] 2022-11-30 10:30:00 2022-11-30 10:30:00 Outpatient R KYAW HANSON [facility] [id number] [facility] 2022-11-29 21:25:00 2022-11-29 22:25:00 Outpatient X KYAW HANSON [facility] [id number] [facility] 2022-11-29 21:25:00 2022-11-29 22:25:[address]on [facility] 1..114 350.1.13.10 4.2.7.2.686 [id number] [id number] [facility] 2022-11-29 00:00:00 2022-11-29 00:00:00 Orders Only Doctor Unassigned, [place] [facility] 1..114 350.1.13.10 4.2.7.2.686 [id number] [facility] 2022-11-29 00:00:00 2022-11-29 00:00:00 Nurse Triage Thierno Barnett, Radha Suazo [facility] 1..114 350.1.13.10 4.2.7.2.686 [id number] [facility] 2022-11-22 00:00:00 2022-11-22 00:00:00 Telephone Kyaw Hanson [facility] BU[facility] 1.2.840.114 350.1.13.10 4.2.7.2.686 [id number] 134 [id number] [facility] 2022-11-11 10:45:00 2022-11-11 11:00:00 Quantitative Analyst Marketing Visit 2, Adc Lab Kyaw Hanson [facility] BUILDING 1.2.840.114 350.1.13.10 4.2.7.2.686 [id number] [facility] 2022-11-11 10:45:00 2022-11-11 10:45:00 Outpatient R KYAW HANSON [facility] [id number] [facility] 2022-11-11 10:00:00 2022-11-11 10:29:36 Initial Visit Kyaw Hanson [facility] BUILDING 1.2.840.114 350.1.13.10 4.2.7.2.686 [id number] 134 [id number] [facility] 2022-11-11 00:00:00 2022-11-11 00:00:00 Orders Only Doctor Unassigned, [place] [facility] 1.2.840.114 350.1.13.10 4.2.7.2.686 [id number] [id number] [facility] 2020-05-20 00:00:00 2020-05-20 00:00:00 Patient Outreach Grant Salinas [facility] 1.2.840.114 350.1.13.10 4.2.7.2.686 [id number] [facility] 2020-02-27 09:30:00 2020-02-27 09:30:00 Outpatient SHERRY FONTENOT [facility] [id number] [facility] 2020-01-23 00:00:00 2020-01-23 00:00:00 Telephone Kyaw Hanson [facility] Angela Landin nal Building 1.2.840.114 350.1.13.10 4.2.7.2.686 [id number] 134 [id number] [facility] 2020-01-07 09:29:29 2020-01-07 10:46:29 Office Visit Kyaw Hanson [facility] Katherine Landin on license [facility] Building 1.2.840.114 350.1.13.10 4.2.7.2.686 [id number] 134 [id number] [facility] 2020-01-07 09:30:00 2020-01-07 09:30:00 Outpatient R [facility] [id number] [facility] 2020-01-03 13:00:00 2020-01-03 13:00:00 Outpatient R SOWMYA [facility] [id number] [facility] 2020-01-03 11:00:39 2020-01-03 11:35:00 Office Visit Sherry Deng [facility] 1.2.840.114 350.1.13.10 4.2.7.2.686 [id number] 134 [id number] [facility] 2019-12-18 13:23:22 2019-12-18 14:18:45 Routine Visit Sowmya [facility] Building 1.2.840.114 350.1.13.10 4.2.7.2.686 [id number] 134 [id number] 2019-12-18 13:23:22 2019-12-18 14:18:45 [facility] 1.2.840.114 350.1.13.10 4.2.7.2.686 [id number] 134 [id number] [facility] 2019-12-18 13:30:00 2019-12-18 13:30:00 Outpatient R SHERRY DENG [facility] [id number] [facility] 2019-11-20 03:42:00 2019-11-21 16:00:00 Hospital Encounter Kyaw Hanson [facility] 1.2.840.114 350.1.13.10 4.2.7.2.686 [id number] [facility] 2019-11-20 03:42:00 2019-11-21 16:00:[address] Kyaw Hanson [facility] 1.2.840.114 350.1.13.10 4.2.7.2.686 [id number] 2019-11-19 14:00:00 2019-11-19 14:00:00 [id number] 2019-11-19 13:32:34 2019-11-19 13:47:34 Laboratory Only Only, Adc Test Kyaw Hanson [facility] 1.2.840.114 350.1.13.10 4.2.7.2.686 [id number] [facility] 2019-11-19 13:32:34 2019-11-19 13:47:34 Laboratory Only Only, Adc Test [facility] 1.2.840.114 350.1.13.10 4.2.7.2.686 [id number] 2019-11-15 08:15:00 2019-11-15 08:15:00 Outpatient R KYAW HANSON [facility] [id number] [facility] 2019-11-13 08:11:50 2019-11-13 08:59:34 Routine Visit Kyaw Hanson [facility] 1.2.840.114 350.1.13.10 4.2.7.2.686 [id number] 134 [id number] [facility] 2019-11-13 08:11:50 2019-11-13 08:59:34 Routine Visit Kyaw Hanson [facility] Angela Landin nal Building 1.2.840.114 350.1.13.10 4.2.7.2.686 [id number] 134 [id number] 2019-11-13 08:30:00 2019-11-13 08:30:00 Outpatient R KYAW HANSON [facility] [id number] [facility] 2019-11-09 00:00:00 2019-11-09 00:00:00 Telephone Kyaw Hanson [facility] Angela Landin nal Building 1.2.840.114 350.1.13.10 4.2.7.2.686 [id number] 134 [id number] [facility] 2019-11-09 00:00:00 2019-11-09 00:00:00 Telephone Kyaw Hanson [facility] Angela Lnadin nal Building 1.2.840.114 350.1.13.10 4.2.7.2.686 [id number] 134 [id number] 2019-11-08 08:43:45 2019-11-08 09:13:25 Routine Visit Sherry Deng [facility] 1.2.840.114 350.1.13.10 4.2.7.2.686 [id number] 134 [id number] [facility] 2019-11-08 08:43:45 2019-11-08 09:13:25 Routine Visit Sherry Deng [facility] nal Building 1.2.840.114 350.1.13.10 4.2.7.2.686 [id number] 134 [id number] 2019-11-08 08:45:00 2019-11-08 08:45:00 [facility] [id number] 2019-11-07 09:45:00 2019-11-07 09:45:00 Outpatient R [facility] [id number] [facility] 2019-11-07 09:29:04 2019-11-07 09:44:04 Quantitative Analyst Marketing Visit 2, Adc Lab Kyaw Hanson [facility] 1.2.840.114 350.1.13.10 4.2.7.2.686 [id number] 353 [id number] [facility] 2019-11-07 09:29:04 2019-11-07 09:44:04 Quantitative Analyst Marketing Visit 2, Adc Lab [facility] 1.2.840.114 350.1.13.10 4.2.7.2.686 [id number] 2019-11-02 15:46:41 2019-11-02 16:53:21 Routine Visit Kyaw Hanson [facility] 1.2.840.114 350.1.13.10 4.2.7.2.686 [id number] 134 [id number] [facility] 2019-11-02 15:46:41 2019-11-02 16:53:21 Routine Visit Kyaw Hanson [facility] 1.2.840.114 350.1.13.10 4.2.7.2.686 [id number] 2019-11-02 16:00:00 2019-11-02 16:00:00 Outpatient R KYAW HANSON [facility] [id number] [facility] 2019-11-02 00:00:00 2019-11-02 00:00:00 Orders Only Doctor Unassigned, [place] [facility] 1.2.840.114 350.1.13.10 4.2.7.2.686 [id number] [id number] 2019-11-02 00:00:00 2019-11-02 00:00:00 Orders Only Doctor Unassigned, [place] [facility] 1.2.840.114 350.1.13.10 4.2.7.2.686 [id number] [facility] 2019-10-19 16:30:00 2019-10-19 16:30:00 Outpatient R SHERRY DENG [facility] [id number] [facility] 2019-10-19 12:46:08 2019-10-19 13:38:11 Routine Visit Sherry Deng [facility] Building 1.2.840.114 350.1.13.10 4.2.7.2.686 [id number] 134 [id number] 2019-10-19 12:46:08 2019-10-19 13:38:11 Routine Visit Sherry Deng [facility] 1.2.840.114 350.1.13.10 4.2.7.2.686 [id number] 134 [id number] [facility] 2019-10-18 15:00:57 2019-10-18 16:03:00 Quantitative Analyst Marketing Visit 1, [facility] Us Room [facility] [employer] [facility]ER[facility] 1.2.840.114 350.1.13.10 4.2.7.2.686 [id number] 2019-10-18 15:00:57 2019-10-18 16:03:00 Quantitative Analyst Marketing Visit 1, [facility] Us Room Jag Rowe [facility] [employer] [facility] MATERNAL & CHILD [facility] 1.2.840.114 350.1.13.10 4.2.7.2.686 [id number] [facility] 2019-10-18 14:15:00 2019-10-18 14:15:00 Outpatient P [facility] [id number] [facility] 2019-10-15 00:00:00 2019-10-15 00:00:00 Orders Only Doctor Unassigned, [place] [facility] 1.2.840.114 350.1.13.10 4.2.7.2.686 [id number] [facility] 2019-10-09 09:12:58 2019-10-09 09:27:58 Quantitative Analyst Marketing Visit 2, Adc Lab Sherry Deng [facility] 1.2.840.114 350.1.13.10 4.2.7.2.686 [id number] [facility] 2019-10-09 08:45:00 2019-10-09 08:45:00 Outpatient R [facility] [id number] [facility] 2019-10-02 13:04:47 2019-10-02 13:39:56 Routine Visit Kyaw Hanson [facility] 1.840.114 350.1.13.10 4.2.7.2.686 [id number] 134 [id number] [facility] 2019-10-02 13:15:00 2019-10-02 13:15:00 Outpatient R KYAW HANSON [facility] [id number] [facility] 2019-09-28 00:00:00 2019-09-28 00:00:00 Orders Only Doctor Unassigned, [place] [facility] 1.840.114 350.1.13.10 4.2.7.2.686 [id number] [id number] [facility] 2019-09-24 00:00:00 2019-09-24 00:00:00 Case Management Sherry Deng [facility] 1..840.114 350.1.13.10 4.2.7.2.686 [id number] 134 [id number] [facility] 2019-09-20 00:00:00 2019-09-20 00:00:00 Telephone Kyaw Hanson [facility] 1.2.840.114 350.1.13.10 4.2.7.2.686 [id number] 134 [id number] [facility] 2019-09-19 00:00:00 2019-09-19 00:00:00 Orders Only Doctor Unassigned, [place] [facility] 1.2.840.114 350.1.13.10 4.2.7.2.686 [id number] [facility] 2019-09-19 00:00:00 2019-09-19 00:00:00 Telephone [facility] 1.2.840.114 350.1.13.10 4.2.7.2.686 [id number] 134 [id number] [facility] 2019-09-18 09:33:05 2019-09-18 09:48:05 Quantitative Analyst Marketing Visit 2, Adc Lab Sherry Deng [facility] 1.2.840.114 350.1.13.10 4.2.7.2.686 [id number] [facility] 2019-09-18 08:45:00 2019-09-18 08:45:00 Outpatient R [facility] [id number] [facility] 2019-09-18 00:00:00 2019-09-18 00:00:00 Case Management Sherry Deng [facility] 1.2.840.114 350.1.13.10 4.2.7.2.686 [id number] 134 [id number] [facility] 2019-09-17 15:34:01 2019-09-17 16:01:07 Routine Visit Sherry Deng [facility] 1.2.840.114 350.1.13.10 4.2.7.2.686 [id number] 134 [id number] [facility] 2019-09-17 16:00:00 2019-09-17 16:00:00 Outpatient R SHERRY DENG [facility] [id number] [facility] 2019-09-12 00:00:00 2019-09-12 00:00:00 Case Management Sherry Deng [facility] 1.2.840.114 350.1.13.10 4.2.7.2.686 [id number] [facility] 2019-09-11 00:00:00 2019-09-11 00:00:00 Case Management Kyaw Hanson [facility] Building 1.2.840.114 350.1.13.10 4.2.7.2.686 [id number] 134 [id number] [facility] 2019-09-04 10:05:43 2019-09-04 10:20:43 Quantitative Analyst Marketing Visit 2, Adc Lab Kyaw Hanson [facility] Building 1.2.840.114 350.1.13.10 4.2.7.2.686 [id number] [facility] 2019-09-04 09:45:00 2019-09-04 09:45:00 Outpatient R [facility] [id number] [facility] 2019-09-03 14:11:15 2019-09-03 15:04:57 Initial Visit Kyaw Hanson [facility] Building 1.2.840.114 350.1.13.10 4.2.7.2.686 [id number] 134 [id number] [facility] 2019-09-03 14:15:00 2019-09-03 14:15:00 Outpatient R KYAW HANSON [facility] [id number] [facility] Results Test Description Test Time Test Comments Results Result Co [facility]ments [facility] w/o Specific [id number] 16:45:00* Test Item Value Reference Range Interpretation Comme nts POCT PH U (test code = 3254) n/a 5-8 POCT U LEUK EST (test code = 3263) n/a Negative - Negative POCT U NIT (test code = 3262) n/a Negative - Negati ve POCT U PROT (test code = 3259) negative Negative - Negat noel POCT U GLU (test code = 3256) negative Negative - Negati ve POCT U KETONE (test code = 3258) n/a Negative - Neg ative POCT U BLD (test code = 3257) n/a Negative - Negati ve [facility] URINALYSIS W/O SPECIFIC [id number] 20:30:00* Test Item Value Reference Range Interpretation Comme nts POCT PH U (test code = 3254) 6 mg/dl 5-8 POCT U LEUK EST (test code = 3263) neg Negative - Negative POCT U NIT (test code = 3262) neg Negative - Negati ve POCT U PROT (test code = 3259) neg Negative - Negat noel POCT U GLU (test code = 3256) normal Negative - Negati ve POCT U KETONE (test code = 3258) neg Negative - Neg ative POCT U BLD (test code = 3257) neg Negative - Negati ve [facility] URINALYSIS W/O SPECIFIC [id number] 19:10:00* Test Item Value Reference Range Interpretation Comme nts POCT PH U (test code = 3254) n/a 5-8 POCT U LEUK EST (test code = 3263) n/a Negative - Negative POCT U NIT (test code = 3262) n/a Negative - Negati ve POCT U PROT (test code = 3259) Negative Negative - Negat noel POCT U GLU (test code = 3256) Normal Negative - Negati ve POCT U KETONE (test code = 3258) n/a Negative - Neg ative POCT U BLD (test code = 3257) n/a Negative - Negati ve [facility] URINALYSIS W/O SPECIFIC [id number] 21:01:00* Test Item Value Reference Range Interpretation Comme nts POCT PH U (test code = 3254) n/a 5-8 POCT U LEUK EST (test code = 3263) n/a Negative - Negative POCT U NIT (test code = 3262) n/a Negative - Negati ve POCT U PROT (test code = 3259) Negatve Negative - Negat noel POCT U GLU (test code = 3256) Normal Negative - Negati ve POCT U KETONE (test code = 3258) n/a Negative - Neg ative POCT U BLD (test code = 3257) n/a Negative - Negati ve [facility] URINALYSIS W/O SPECIFIC [id number] 15:38:00* Test Item Value Reference Range Interpretation Comme nts POCT PH U (test code = 3254) 8 mg/dl 5-8 POCT U LEUK EST (test code = 3263) Negative Negative - Negative POCT U NIT (test code = 3262) Negative Negative - Negati ve POCT U PROT (test code = 3259) Negative Negative - Negat noel POCT U GLU (test code = 3256) Negative Negative - Negati ve POCT U KETONE (test code = 3258) Negative Negative - Neg ative POCT U BLD (test code = 3257) Negative Negative - Negati ve [facility] URINALYSIS W/O SPECIFIC [id number] 15:09:00* Test Item Value Reference Range Interpretation Comme nts POCT PH U (test code = 3254) n/a 5-8 POCT U LEUK EST (test code = 3263) n/a Negative - Negative POCT U NIT (test code = 3262) n/a Negative - Negati ve POCT U PROT (test code = 3259) Negative Negative - Negat noel POCT U GLU (test code = 3256) Normal Negative - Negati ve POCT U KETONE (test code = 3258) n/a Negative - Neg ative POCT U BLD (test code = 3257) n/a Negative - Negati ve [facility] [id number] 16:27:00* Test Item Value Reference Range Interpretation Comme nts POCT PREG (test code = 1605) Negative On board controls acceptable with C Line (test code = 3574) Yes POCT PREG LOT # (test code = 3575) POCT PREG TEST DATE ( test code = 3576) [facility] [id number] 16:27:00* Test Item Value Reference Range Interpretation Comme nts POCT PREG (test code = 1605) Negative On board controls acceptable with C Line (test code = 3574) Yes POCT PREG LOT # (test code = 3575) POCT PREG TEST DATE ( test code = 3576) [facility] [id number] 16:27:00* Test Item Value Reference Range Interpretation Comme nts POCT PREG (test code = 1605) Negative On board controls acceptable with C Line (test code = 3574) Yes POCT PREG LOT # (test code = 3575) POCT PREG TEST DATE ( test code = 3576) [facility] with [id number] 10:24:00* Test Item Value Reference Range Interpretation Comme nts WBC (test code = 6690-2) See_Comment [Automated messa ge] The system which generated this result transmitted reference range: 4.30 - 11.10 10*3/?L. The reference range was not used to interpret this result as normal/abnormal. RBC (test code = 789-8) See_Comment L [Automated messa ge] The system which generated this result transmitted reference range: 3.93 - 5.25 10*6/?L. The reference range was not used to interpret this result as normal/abnormal. HGB (test code = 718-7) 10.5 g/dL 11.6-15 L HCT (test code = 4544-3) 31.7 % 35.7-45.2 L MCV (test code = 787-2) 85.0 fL 80.6-95.5 MCH (test code = 785-6) 28.2 pg 25.9-32.8 MCHC (test code = 786-4) 33.1 g/dL 31.6-35.1 RDW-SD (test code = 50454-6) 37.6 fL 39-49.9 L RDW-CV (test code = 788-0) 12.5 % 12-15.5 PLT (test code = 777-3) See_Comment L [Automated messa ge] The system which generated this result transmitted reference range: 166 - 358 10*3/?L. The reference range was not used to interpret this result as normal/abnormal. MPV (test code = 87610-7) 12.3 fL 9.5-12.9 NRBC/100 WBC (test code = 8587666771) See_Comment [Automated me ssage] The system which generated this result transmitted reference range: 0.0 - 10.0 /100 WBCs. The reference range was not used to interpret this result as normal/abnormal. NRBC x10^3 (test code = 5497690509) <0.01 See_Comment [Automated messa ge] The system which generated this result transmitted reference range: 10*3/?L. The reference range was not used to interpret this result as normal/abnormal. GRAN MAT (NEUT) % (test code = 770-8) 62.9 % IMM GRAN % (test code = 7260138929) 0.40 % LYMPH % (test code = 736-9) 27.6 % MONO % (test code = 5905-5) 7.1 % EOS % (test code = 713-8) 1.7 % BASO % (test code = 706-2) 0.3 % GRAN MAT x10^3(ANC) (test code = 4218735146) 4.49 10*3/uL 1.88-7.09 IMM GRAN x10^3 (test code = 7371322534) 0.03 10*3/uL 0-0.06 LYMPH x10^3 (test code = 731-0) 1.97 10*3/uL 1.32-3.29 MONO x10^3 (test code = 742-7) 0.51 10*3/uL 0.33-0.92 EOS x10^3 (test code = 711-2) 0.12 10*3/uL 0.03-0.39 BASO x10^3 (test code = 704-7) <0.03 0.01-0.07 Lab Interpretation (test code = 49953-2) Abnormal [facility] ONLY - [id number] 06:17:00* Test Item Value Reference Range Interpretation Comme nts RPR (Qualitative) (test code = 73066-4) Nonreactive Nonreactive Lab Interpretation (test cod e = 95466-3) Normal [facility] (D) IMMUNE [id number] 00:05:43* Test Item Value Reference Range Interpretation Comme nts RHIG CANDIDATE? (test code = 5055) No- see comment Patient is not a candidate for RhIg- Patient is Rh Positive.Performed at [facility] Laboratory Services - ADC Blood [address] [place] [id number] Free: [phone] No. [id number] [facility] [id number] 19:52:00* Test Item Value Reference Range Interpretation Comme nts VENOUS BASE EXCESS, CORD (test code = 4436426129) mEq/L VENOUS PH, CORD (test code = 3505739855) 7.25-7.45 VENOUS PC02, CORD (test code = [id number]) See_Comment [Automated messa ge] The system which generated this result transmitted reference range: 27 - 49 mmHg. The reference range was not used to interpret this result as normal/abnormal. VENOUS PO2, CORD (test code = [id number]) See_Comment [Automated me ssage] The system which generated this result transmitted reference range: 17 - 41 mmHg. The reference range was not used to interpret this result as normal/abnormal. VENOUS BICARBONATE, CORD (test code = [id number]) See_Comment [Automated messa ge] The system which generated this result transmitted reference range: 12 - 29 mEq/L. The reference range was not used to interpret this result as normal/abnormal. [facility] [id number] 19:50:00* Test Item Value Reference Range Interpretation Comme nts BASE EXCESS, CORD (test code = [id number]) mEq/L AC PH, CORD (BEAKER) (test code = [id number]) 7.18-7.38 PC02, CORD (test code = 4856819091) See_Comment [Automated messa ge] The system which generated this result transmitted reference range: 32 - 66 mmHg. The reference range was not used to interpret this result as normal/abnormal. PO2, CORD (test code = [id number]) See_Comment [Automated messa ge] The system which generated this result transmitted reference range: 10 - 30 mmHg. The reference range was not used to interpret this result as normal/abnormal. BICARBONATE, CORD (test code = 9966130827) See_Comment [Automated messa ge] The system which generated this result transmitted reference range: 17 - 27 mEq/L. The reference range was not used to interpret this result as normal/abnormal. [facility] Surface [id number] 16:24:00 * Test Item Value Reference Range Interpretation Comme nts HBsAg Semi-Quantitative (james t code = 5195-3) Negative Negative [facility]2 AG-AB WITH [id number] 12:34:00* Test Item Value Reference Range Interpretation Comme nts HIV Semi-quantitative (test code = 20931-3) Negative Negative RAYMOND (test code = RAYMOND) Non-reactive for HIV-1 antigen and HIV-1/HIV-2 antibodies. ?No laboratory evidence of HIV infection. ?Repeat in 2-4 weeks if acute HIV infection is suspected. [facility] CenterType and Screen - ONCE [id number] 10:15:06 * Test Item Value Reference Range Interpretation Comme nts ABO & RH (test code = 20) A Positive Performed at [facility] Laboratory [facility] Blood [id number] [place] [address] Free: [phone] No. [id number] IAT (test code = 1185) Negative Performed at [facility] Blood [id number] [place] [address] Free: [phone] No. [id number] [facility] CenterCBC with [id number] 09:41:00* Test Item Value Reference Range Interpretation Comme nts WBC (test code = 6690-2) See_Comment [Automated messa ge] The system which generated this result transmitted reference range: 4.30 - 11.10 10*3/?L. The reference range was not used to interpret this result as normal/abnormal. RBC (test code = 789-8) See_Comment [Automated messa ge] The system which generated this result transmitted reference range: 3.93 - 5.25 10*6/?L. The reference range was not used to interpret this result as normal/abnormal. HGB (test code = 718-7) 11.6 g/dL 11.6-15 HCT (test code = 4544-3) 34.8 % 35.7-45.2 L MCV (test code = 787-2) 83.5 fL 80.6-95.5 MCH (test code = 785-6) 27.8 pg 25.9-32.8 MCHC (test code = 786-4) 33.3 g/dL 31.6-35.1 RDW-SD (test code = 86296-8) 37.2 fL 39-49.9 L RDW-CV (test code = 788-0) 12.4 % 12-15.5 PLT (test code = 777-3) See_Comment [Automated [employer] ge] The system which generated this result transmitted reference range: 166 - 358 10*3/?L. The reference range was not used to interpret this result as normal/abnormal. MPV (test code = 74746-8) 12.4 fL 9.5-12.9 NRBC/100 WBC (test code = 0586531248) See_Comment [Automated [employer] ssage] The system which generated this result transmitted reference range: 0.0 - 10.0 /100 WBCs. The reference range was not used to interpret this result as normal/abnormal. NRBC x10^3 (test code = 8512456153) <0.01 See_Comment [Automated [employer] ge] The system which generated this result transmitted reference range: 10*3/?L. The reference range was not used to interpret this result as normal/abnormal. GRAN MAT (NEUT) % (test code = 770-8) 62.4 % IMM GRAN % (test code = 0868375092) 0.40 % LYMPH % (test code = 736-9) 27.1 % MONO % (test code = 5905-5) 8.0 % EOS % (test code = 713-8) 1.6 % BASO % (test code = 706-2) 0.5 % GRAN MAT x10^3(ANC) (test code = 1034700939) 4.54 10*3/uL 1.88-7.09 IMM GRAN x10^3 (test code = 2096216722) 0.03 10*3/uL 0-0.06 LYMPH x10^3 (test code = 731-0) 1.97 10*3/uL 1.32-3.29 MONO x10^3 (test code = 742-7) 0.58 10*3/uL 0.33-0.92 EOS x10^3 (test code = 711-2) 0.12 10*3/uL 0.03-0.39 BASO x10^3 (test code = 704-7) 0.04 10*3/uL 0.01-0.07 Lab Interpretation (test code = 43312-0) Abnormal [facility] URINALYSIS W/O SPECIFIC [id number] 13:28:00* Test Item Value Reference Range Interpretation Comme nts POCT PH U (test code = 3254) n/a 5-8 POCT U LEUK EST (test code = 3263) n/a Negative - N egative POCT U NIT (test code = 3262) n/a Negative - Negati ve POCT U PROT (test code = 3259) neg Negative - Negat noel POCT U GLU (test code = 3256) neg Negative - Negati ve POCT U KETONE (test code = 3258) n/a Negative - Neg ative POCT U BLD (test code = 3257) n/a Negative - Negati ve [facility] URINALYSIS W/O SPECIFIC [id number] 14:01:00* Test Item Value Reference Range Interpretation Comme nts POCT PH U (test code = 3254) N/A 5-8 POCT U LEUK EST (test code = 3263) N/A Negative - Negative POCT U NIT (test code = 3262) N/A Negative - Negati ve POCT U PROT (test code = 3259) Negative Negative - Negat noel POCT U GLU (test code = 3256) Negative Negative - Negati ve POCT U KETONE (test code = 3258) N/A Negative - Neg ative POCT U BLD (test code = 3257) N/A Negative - Negati ve [facility] URINALYSIS W/O SPECIFIC [id number] 21:28:00* Test Item Value Reference Range Interpretation Comme nts POCT PH U (test code = 3254) n/a 5-8 POCT U LEUK EST (test code = 3263) n/a Negative - N egative POCT U NIT (test code = 3262) n/a Negative - Negati ve POCT U PROT (test code = 3259) neg Negative - Negat noel POCT U GLU (test code = 3256) neg Negative - Negati ve POCT U KETONE (test code = 3258) n/a Negative - Neg ative POCT U BLD (test code = 3257) n/a Negative - Negati ve [facility] URINALYSIS W/O SPECIFIC [id number] 18:19:00* Test Item Value Reference Range Interpretation Comme nts POCT PH U (test code = 3254) 7 mg/dl 5-8 POCT U LEUK EST (test code = 3263) trace Negative - Negative POCT U NIT (test code = 3262) neg Negative - Negati ve POCT U PROT (test code = 3259) neg Negative - Negat noel POCT U GLU (test code = 3256) neg Negative - Negati ve POCT U KETONE (test code = 3258) neg Negative - Neg ative POCT U BLD (test code = 3257) neg Negative - Negati ve Lab Interpretation (test cod e = 66359-8) Abnormal [facility]1 HR GLUCOSE TOLERANCE [id number] 16:44:00 * Test Item Value Reference Range Interpretation Comme nts GLUC 1 HR (test code = 8507832714) 150 mg/dL 120-170 Lab Interpretation (test cod e = 89342-3) Normal [facility] CenterGLUCOSE [id number] 16:43:00* Test Item Value Reference Range Interpretation Comme nts GLU FASTNG (test code = 7494444887) 78 mg/dL 70-110 Lab Interpretation (test cod e = 27688-7) Normal [facility] W/O SPECIFIC [id number] 20:46:00* Test Item Value Reference Range Interpretation Comme nts POCT PH U (test code = 3254) n/a 5-8 POCT U LEUK EST (test code = 3263) n/a Negative - N egative POCT U NIT (test code = 3262) n/a Negative - Negati ve POCT U PROT (test code = 3259) neg Negative - Negat noel POCT U GLU (test code = 3256) neg Negative - Negati ve POCT U KETONE (test code = 3258) n/a Negative - Neg ative POCT U BLD (test code = 3257) n/a Negative - Negati ve [facility] CenterADC / C - DRUG SCREEN [id number] 22:49:00* Test Item Value Reference Range Interpretation Comme nts BENZO U (test code = 2833799413) Negative Negative ОЛЬГА U (test code = 0401999176) Negative Negative AMPHET (test code = 1091747836) Negative Negative THC (test code = 2053610642) Negative Negative METHADONE (test code = 0826946855) Negative Negative Meth U (test code = 6539691046) Negative Negative OPIATES (test code = 7745339015) Negative Negative Cocaine Metabolite (test code = 0582162876) Negative Negative PROPOXY (test code = 2724431462) Negative Negative Tric U (test code = 3745189723) Negative Negative PCP (test code = 6580082939) Negative Negative OXYCOD (test code = 7057922514) Negative Negative RAYMOND (test code = RAYMOND) Urine Drug [...] employment testing, legal testing). Lab Interpretation (test code = 43381-7) Normal [facility] CenterPO[facility] W/O SPECIFIC [id number] 22:25:00* Test Item Value Reference Range Interpretation Comme nts POCT PH U (test code = 3254) na 5-8 POCT U LEUK EST (test code = 3263) na Negative - N egative POCT U NIT (test code = 3262) na Negative - Negati ve POCT U PROT (test code = 3259) neg Negative - Negat noel POCT U GLU (test code = 3256) neg Negative - Negati ve POCT U KETONE (test code = 3258) na Negative - Neg ative POCT U BLD (test code = 3257) na Negative - Negati ve [facility] Notes Date/Time Note Provider Source 2023-05-13 15:04:31 LM on Vm for pt to return call or look at mychart. CHARMAINE DOWELL RN 05/13/2023 3:04 PM Charmaine Dowell RN [facility] 2023-05-11 16:06:13 Advised spouse to have pt return call or check MCM. Verbalized understanding. CHARMAINE DOWELL RN 05/11/2023 4:06 PM Charmaine Dowell RN [facility] 2023-04-25 15:49:51 Lm on VM for pt to return call. CHARMAINE DOWELL RN 04/25/2023 3:50 PM [employer] Charmaine Dowell RN [facility] 2023-03-10 14:45:00 Age: [age] year old GA: 32w4d -Doing well - Vaginal pressure: discussed Advise maternity belt prn -Patient states that she will move to [place] tomorrow. Will establish care in [place]. Patient to get out of car every hour and walk 5-10 minutes. Patient to wear compression stockings. Patient to know all the hospitals along the route in case of emergency. Strong labor precautions, daily kick counts, and danger signs of reviewed. - Anxiety: states that with the move and taking care of 2 children and her coming home from [facility], everything is stressful. Will be driving with her family members (2 other adults). Patient states that she was on Zoloft 50 mg daily until 06/2022. Patient self discontinued when she had the miscarriages. NAOMI-7 score 19. EPDS 13. Denies SI/HI. Discussed restarting Zoloft 50 mg daily. Patient desired. -Low-lying placenta: resolved on 03/01/23 ultrasound - Received Tdap vaccines today - Daily kick counts - follow-up PRN [facility] 2023-03-10 14:18:20 Associated Problem(s): Low lying placenta without hemorrhage, antepartum resolved [facility] 2023-03-08 08:00:52 Pt went to L&D yesterday. Was discharged home. CHARMAINE DOWELL RN 03/08/2023 8:01 AM [employer] Charmaine Dowell RN [facility] 2023-03-07 21:43:07 Pt states that she is having upper abd pain, and blood pressure has been running high, and lower extremity swelling. , Due Date 05/01/2023 [employer] Ashley Lopez RN [facility] 2023-02-24 10:45:00 Age: [age] year old GA: 30w4d -Doing well -Patient states that she will move to [place] in 15 days. Will establish care in [place] -28-week labs and serologies within normal limits -Low-lying placenta: Follow-up ultrasound scheduled for 03/01/23 3rd trimester teaching done- reviewed S/S of PTL (contractions, leakage of fluid and Vaginal bleeding) and also Kick Counts. Also dicussed [place], pelvic and lower back pains- expectations and differenced with S/S of PTL BC options reviewed- opted for vasectomy Follow-up in 2 weeks for visit [employer] [facility] 2022-11-11 10:45:00 Formatting of this n ote is different from the original. Images from the original note were not included. Venipuncture collection performed by clean technique on the right anticubitus. Total of 1 attempts were made. Slight pressure and a bandage/dressing were applied to the site(s). The patient experienced no complications. The following specimens were processed according to instructions and sent to [facility] laboratories per lab order on 11/11/2022 : LT BLUE SST 1 RED LAV PPT DK GREEN (LiHep) DK GREEN (SodH) PRIDE DK BLUE (K2) DK BLUE (S) ACD Blood Culture NIPT/NTD [facility] 2022-11-11 10:00:00 Formatting of this n ote might be different from the original. Age: [age] year old GA: 15w4d Transfer of care from [place] -Release of records signed -Last visit was when she was about 10 weeks gestation. VIC 05/01/2023 per patient Nausea/vomiting -Improved but still has it. Triggered by certain smells and foods. -Patient desires a refill on Zofran. Ran out about 3 days ago. -Zofran 4 mg as needed. - Today USG: Single live IUP New OB labs today. No complaints. Discussed do's and don'ts of , safe foods, safe medications. Reviewed Zika virus precautions. I discussed the call schedule and that I might not be the physician delivering her. I discussed I deliver my patients at [facility]. Expectations for weight gain this include 25-35 pounds. Encouraged to call if have any additional questions or concerns. Discussed aneuploidy and carrier screening; patient opts for Quad screen. Have received 2 doses of COVID vaccines. Discussed about COVID-19/flu precautions. Social distancing, frequent hand washings, wearing face mask, signs/symptoms for testing and to follow CDC recommendations discussed. Discussed with patient that she can have HEALTHY support with her during her delivery (which is subject to change depends on the COVID pandemic) Anatomy ultrasound ordered. Next visit in 4 week. T [facility]
[2024-10-22 16:54] LABS: Absolute Lymphocytes (CBC) 1.4 K/uL (0.7-4.9); Hematocrit 39.9 % (36.0-45.0); Hemoglobin 13.5 g/dL (12.0-15.0); MCH 28.4 pg (27.0-35.0); MCHC 33.9 g/dL (32.0-36.0); MCV 83.6 fL (80-100); MPV 8.4 fL (7.6-11.3); Nucleated RBC Absolute Count 0.0 (0-0); Nucleated Red Blood Cells % 0.0 % (0-0); RBC Red Blood Cell Count 4.78 M/uL (3.86-4.86); White Blood Count 4.90 thou/uL (4.3-10.9)
[2024-10-22] MEDS ORDERED: LORazepam 2 MG/ML VIAL ONE (17:07)
--- NOTE | 2024-10-22 17:08 | RAD REPORT ---
EXAMINATION: ONE VIEW CHEST XR CLINICAL INDICATION: Female, 29 years old.,CHEST PAIN TECHNIQUE: Frontal chest projection is submitted. Examination is limited by patient positioning and t echnique. COMPARISON: 11/26/2014. FINDINGS: The lungs are well inflated and clear. No pneumothorax or sizable effusion. The heart is normal in s ize. Mediastinal contours are unremarkable. IMPRESSION: No acute intrathoracic abnormalities.
[2024-10-22] MEDS ORDERED: NA CHLORIDE 0.9% 1,000 ML ONE (17:09)
[2024-10-22 17:22] LABS: Urine Microscopic Reflex YN NO UMIC
[2024-10-22 17:34] LABS: METHAMPHETAM NEGATIVE (NEGATIVE); THC Cannibis NEGATIVE (NEGATIVE)
[2024-10-22 17:44] LABS: ALT/SGPT 18 U/L (13-56); AST/SGOT 16 U/L (15-37); Albumin 3.6 g/dL (3.4-5.0); Albumin/Globulin Ratio 1.1 (1.1-1.8); Alkaline Phosphatase 69 U/L (45-117); Anion Gap 9.3 mEq/L (5.0-15.0); BUN Blood Urea Nitrogen 7 mg/dL (7-18); Bilirubin Indirect, Calculated 0.4 mg/dL (0.2-0.8); Globulin 3.4 g/dL (2.3-3.5); Glucose Level 100 mg/dL (74-106); Magnesium 2.2 mg/dL (1.6-2.4); Potassium 4.3 mEq/L (3.5-5.1)
[2024-10-22 17:47] LABS: Troponin High Sensitivity < 3.0 pg/mL (<58.9)
--- NOTE | 2024-10-22 18:09 | RAD REPORT ---
EXAM: CT Head Brain Wo Cont HISTORY: Confused;Headache COMPARISON: 11/26/2014 TECHNIQUE: Multiple contiguous axial images were obtained for a CT of the brain without contrast. Sag ittal and coronal reformats were performed. One or more of the following dose reduction techniques were used: Automated exposure control, adjus tment of the mA and kV according to patient size, and iterative reconstruction. Unless otherwise specified, incidental findings do not require dedicated imaging follow-up. FINDINGS: No evidence of hydrocephalus, intracranial hemorrhage, or extra-axial fluid collection. The brain is normal in morphology. The calvarium is intact. The visualized paranasal sinuses and mastoid air cells are essentially clear . IMPRESSION: No evidence of acute intracranial abnormality.
--- NOTE | 2024-10-22 18:28 | ER ---
Nurse's Notes [facility] Name: Isela Ram Age: 29 yrs Sex: Female : 1995 Arrival Date: 10/22/2024 Time: 16:22 Bed 16 Private MD: Diagnosis: Dizziness and giddiness Presentation: 10/22 16:30 Chief complaint: Patient states: Dyspnea, joint pain, MONAE, foggy, dizziness started at dd2 1100. Coronavirus screen: Client denies travel out of the [place] in the last 14 days. difficulty breathing, fatigue, headache, muscle pain, Client presents with at least one sign or symptom that may indicate coronavirus-19. Standard/surgical mask placed on the client. Ebola Screen: Patient denies travel to an Ebola-affected area in the 21 days before illness onset. Initial Sepsis Screen: Does the patient meet any 2 criteria? No. Patient's initial sepsis screen is negative. Does the patient have a suspected source of infection? No. Patient's initial sepsis screen is negative. Risk Assessment: Do you want to hurt yourself or someone else? Patient reports no desire to harm self or others. Onset of symptoms was October 22, 2024. 16:30 Method Of Arrival: Ambulatory dd2 16:30 Acuity: PEREZ 3 dd2 Triage Assessment: 16:33 General: Appears distressed, uncomfortable, Behavior is calm, cooperative, appropriate ll1 for age. Pain: Complains of pain in head Pain currently is 10 out of 10 on a pain scale. Quality of pain is described as aching. Neuro: Reports dizziness, headache weakness foggy. Cardiovascular: Reports chest pain, fatigue, lightheadedness, shortness of breath. Historical: - Allergies: 16:27 Sulfa (Sulfonamide Antibiotics); ll1 - PMHx: 16:27 depressive disorder; Ovarian cyst; ll1 16:30 adhd; dd2 - PSHx: 16:30 LEEP; dd2 - Immunization history:: Adult Immunizations up to date. - Infectious Disease History:: Denies. - Social history:: Smoking status: Patient denies any tobacco usage or history of. Screenin:40 [facility] ED Fall Risk Assessment (Adult) History of falling in the last 3 months, ar8 including since admission No falls in past 3 months (0 pts) Confusion or Disorientation No (0 pts) Intoxicated or Sedated No (0 pts) Impaired Gait No (0 pts) Mobility Assist Device Used No (0 pt) Altered Elimination No (0 pt) Score/Fall Risk Level 0 - 2 = Low Risk Oriented to surroundings, Maintained a safe environment. Abuse screen: Denies threats or abuse. Nutritional screening: No deficits noted. Tuberculosis screening: No symptoms or risk factors identified. Assessment: 16:40 General: Appears uncomfortable, Behavior is cooperative. ar8 16:40 Pain: Complains of pain in headache Pain currently is 10 out of 10 on a pain scale. ar8 Pain: Pain does not radiate. Pain began 4 hours ago. Neuro: Level of Consciousness is awake, alert, obeys commands, Oriented to person, place, time, situation, Reports dizziness, since this morning headache frontal area. Cardiovascular: No deficits noted. Respiratory: No deficits noted. Airway is patent Respiratory effort is even, unlabored, Respiratory pattern is regular, symmetrical. GI: Abdomen is flat, Abd is soft and non tender X 4 quads. Reports nausea. Vital Signs: 16:30 BP 121 / 94; Pulse 100; Resp 17; Temp 98.2(O); Pulse Ox 100% ; Weight 54.43 kg; Height dd2 5 ft. 5 in. ; Pain 7/10; 18:00 BP 114 / 80; Pulse 74; Resp 15; Pulse Ox 100% on R/A; Pain 9/10; ar8 18:33 BP 110 / 74; Pulse 75; Resp 16; Pulse Ox 100% on R/A; ar8 16:30 Body Mass Index 19.97 (54.43 kg, 165.1 cm) dd2 16:30 Pain Scale: Adult dd2 18:00 Pain Scale: Adult ar8 ED Course: 16:23 Patient arrived in ED. im 16:23 Deirdre Martinez FNP-C is PHCP. kb 16:23 Cesar Huynh DO is Attending Physician. kb 16:27 Arm band placed on Patient placed in an exam room, on a stretcher. ll1 16:32 Triage completed. dd2 16:37 Ricardo Zarate, SAMIA is Primary Nurse. ar8 16:40 Bed in low position. Call light in reach. Side rails up X2. Provided Education on: plan ar8 of care. Client placed on continuous cardiac and pulse oximetry monitoring. NIBP monitoring applied. 16:40 No provider procedures requiring assistance completed. Patient maintains SpO2 ar8 saturation greater than 95% on room air. 16:48 Inserted saline lock: 22 gauge in left antecubital area, using aseptic technique. Blood ar8 collected. Flushed with 10 mL NS. 16:50 EKG done, by oxygen equipment technician. reviewed by Deirdre PAYNE. ts3 17:01 Chest Single View XRAY In Process Unspecified. EDMS 17:[address] via wheelchair. ar8 17:51 CT Head Brain wo Cont In Process Unspecified. EDMS 19:05 IV discontinued, intact, bleeding controlled, No redness/swelling at site. Pressure ar8 dressing applied. Administered Medications: 17:13 Drug: NS 0.9% IV 1000 ml IV at 1000 ml once; to be given as a bolus over 60 minutes ar8 Route: IV; Rate: 1000 ml; Site: left antecubital; 18:18 Follow up: Response: No adverse reaction; Marked relief of symptoms; IV Status: ar8 Completed infusion; IV Intake: 1000ml 17:13 Not Given (Patient Refused): ativan0.5 mg IVP once ar8 18:44 Drug: Ketorolac IVP 15 mg IVP once Route: IVP; Site: left antecubital; ar8 19:05 Follow up: Response: No adverse reaction; Medication administered at discharge. ar8 Medication: 16:40 VIS not applicable for this client. ar8 Intake: 18:18 IV: 1000ml; Total: 1000ml. ar8 Outcome: 18:27 Discharge ordered by . kb 19:05 Discharged to home ambulatory, ar8 19:05 Discharged to home ambulatory, with significant other, 19:05 Condition: stable 19:05 Discharge instructions given to patient, significant other, Instructed on discharge instructions, follow up and referral plans. Demonstrated understanding of instructions, follow-up care, 19:10 Patient left the ED. ar8 Signatures: Dispatcher [employer] EDDeirdre Sweeney, ELMER HARRISON-Mack Estrella RN RN ll1 Wendy Jefferson DIANA RN RN dd2 Lauren Devries ts3 Ricardo Zarate RN RN ar8
--- NOTE | 2024-10-22 18:28 | EDPHYS ---
Physician Documentation [facility] Name: Isela Ram Age: 29 yrs Sex: Female : 1995 Arrival Date: 10/22/2024 Time: 16:22 Bed 16 Private MD: ED Physician Cesar Huynh HPI: 10/22 18:00 This 29 yrs old Female presents to ER via Ambulatory with complaints of Chest Pain, kb Shortness Of Breath, Confusion. 18:00 Patient is a 29-year-old female presents for shortness of breath, confusion, brain fog, kb headache, photophobia, nausea that started around 11:00 this morning. Denies cough congestion fever chills. States she felt completely normal before symptoms began. Denies previous episode of similar symptoms. Patient takes Vyvanse daily but otherwise no other prescribed medications. Patient reports she smokes marijuana occasionally but denies any other drug use.. Historical: - Allergies: 16:27 Sulfa (Sulfonamide Antibiotics); ll1 - PMHx: 16:27 depressive disorder; Ovarian cyst; ll1 16:30 adhd; dd2 - PSHx: 16:30 LEEP; dd2 - Immunization history:: Adult Immunizations up to date. - Infectious Disease History:: Denies. - Social history:: Smoking status: Patient denies any tobacco usage or history of. ROS: 17:03 Constitutional: As per HPI kb Exam: 17:02 Head/Face: Normocephalic, atraumatic. ENT: Moist Mucous membranes Cardiovascular: kb Regular rate Respiratory: Respirations even and unlabored. No increased work of breathing. Talking in full sentences Abdomen/GI: Soft, non-tender. No distention Skin: Warm, dry with normal turgor. Normal color. MS/ Extremity: Pulses equal, no cyanosis. Neurovascular intact. Full, normal range of motion. Neuro: Awake and alert, GCS 15, oriented to person, place, time, and situation. 17:02 Constitutional: The patient appears alert, awake, anxious, 17:02 ECG was reviewed by the Attending Physician. Vital Signs: 16:30 BP 121 / 94; Pulse 100; Resp 17; Temp 98.2(O); Pulse Ox 100% ; Weight 54.43 kg; Height dd2 5 ft. 5 in. ; Pain 7/10; 18:00 BP 114 / 80; Pulse 74; Resp 15; Pulse Ox 100% on R/A; Pain 9/10; ar8 18:33 BP 110 / 74; Pulse 75; Resp 16; Pulse Ox 100% on R/A; ar8 16:30 Body Mass Index 19.97 (54.43 kg, 165.1 cm) dd2 16:30 Pain Scale: Adult dd2 18:00 Pain Scale: Adult ar8 MDM: 16:23 Medical Screening Exam initiated kb 18:26 Data reviewed: vital signs, nurses notes. kb 18:26 Management of patient was discussed with the following: Dr Huynh. Historians other than yoselin the Patient: Spouse/Significant Other: significant other. Counseling: I had a detailed discussion with the patient and/or guardian regarding the historical points, exam findings, and any diagnostic results supporting the discharge/admit diagnosis, lab results, radiology results, the need for outpatient follow up, a family practitioner, a neurologist, to return to the emergency department if symptoms worsen or persist or if there are any questions or concerns that arise at home. 10/22 16:33 Order name: Basic Metabolic Panel; Complete Time: 17:50 kb 10/22 16:33 Order name: CBC with Diff; Complete Time: 16:59 kb 10/22 16:33 Order name: Hepatic Function; Complete Time: 17:50 kb 10/22 16:33 Order name: Magnesium; Complete Time: 17:50 kb 10/22 16:33 Order name: Test, Urine; Complete Time: 17:26 kb 10/22 16:33 Order name: Troponin High Sensitivity; Complete Time: 17:50 kb 10/22 16:33 Order name: UDS; Complete Time: 17:41 kb 10/22 16:33 Order name: UA Rfx Ger Cult if indicated; Complete Time: 17:26 kb 10/22 16:33 Order name: CT Head Brain wo Cont; Complete Time: 18:10 kb 10/22 16:33 Order name: Chest Single View XRAY; Complete Time: 17:11 kb 10/22 16:33 Order name: Cardiac monitoring; Complete Time: 16:59 kb 10/22 16:33 Order name: EKG - Nurse/Tech; Complete Time: 16:50 kb 10/22 16:33 Order name: IV Saline Lock; Complete Time: 16:59 kb 10/22 16:33 Order name: Labs collected and sent; Complete Time: 16:59 kb 10/22 16:33 Order name: NPO; Complete Time: 16:59 kb 10/22 16:33 Order name: O2 Per Protocol; Complete Time: 16:59 kb 10/22 16:33 Order name: O2 Sat Monitoring; Complete Time: 16:59 kb EC:02 Rate is 78 beats/min. Rhythm is regular. QRS Renner is Normal. RI interval is normal at kb 152 msec. QRS interval is normal at 88 msec. QT interval is normal at 430 msec. Administered Medications: 17:13 Drug: NS 0.9% IV 1000 ml IV at 1000 ml once; to be given as a bolus over 60 minutes ar8 Route: IV; Rate: 1000 ml; Site: left antecubital; 18:18 Follow up: Response: No adverse reaction; Marked relief of symptoms; IV Status: ar8 Completed infusion; IV Intake: 1000ml 17:13 Not Given (Patient Refused): ativan0.5 mg IVP once ar8 18:44 Drug: Ketorolac IVP 15 mg IVP once Route: IVP; Site: left antecubital; ar8 19:05 Follow up: Response: No adverse reaction; Medication administered at discharge. ar8 Disposition: 17:43 I was immediately available on-site in the Emergency Department for consultation in the ms3 care of the patient. Disposition Summary: 10/22/24 18:27 Discharge Ordered Notes: Location: Home kb Condition: Stable kb Diagnosis - Dizziness and giddiness kb Followup: kb - With: Emergency Department - When: As needed - Reason: Worsening of condition Followup: kb - With: Private Physician - When: 2 - 3 days - Reason: Recheck today's complaints, Continuance of care, Re-evaluation by your physician Discharge Instructions: - Discharge Summary Sheet kb - Dizziness, Gzed-ba-Kxly kb - Viral Illness, Adult kb Forms: - Medication Reconciliation Form kb - Antibiotic Education kb - Prescription Opioid Use kb - Patient Portal Instructions kb - Leadership Thank You Letter kb Signatures: Dispatcher [employer] EDMS Deirdre Martinez FNP-C FNP-Mack Estrella RN RN ll1 Cesar Huynh, DO ms3 WILBERTO OLSON RN RN dd2 Ricardo Zarate RN RN ar8 Corrections: (The following items were deleted from the chart) 16:33 16:33 Head Brain Wo Cont+CT.RAD.BRZ ordered. EDMS EDMS 16:34 16:34 BASIC METABOLIC PANEL+C.LAB.BRZ ordered. EDMS EDMS 16:34 16:34 CBC+H.LAB.BRZ ordered. EDMS EDMS 16:34 16:34 HEPATIC FUNCTION+C.LAB.BRZ ordered. EDMS EDMS 16:34 16:34 MAGNESIUM+C.LAB.BRZ ordered. EDMS EDMS 16:34 16:34 Test, Urine+UC.LAB.BRZ ordered. EDMS EDMS 16:34 16:34 Troponin High Sensitivity+C.LAB.BRZ ordered. EDMS EDMS 16:34 16:34 URINE DRUG SCREEN+UC.LAB.BRZ ordered. EDMS EDMS 16:34 16:34 UA Rfx Ger Cult if indicated+U.LAB.BRZ ordered. EDMS EDMS 16:34 16:34 Chest Single View+RAD.RAD.BRZ ordered. EDMS EDMS
[2024-10-22] MEDS ORDERED: KETOROLAC 30 MG/ML INJ ONE (18:40)
[2024-10-23 00:15] VITALS: TEMP 98.2; O2SAT 100
[2024-10-23 00:18] VITALS: BP 110/74
== END 2024-10-22 19:10 | disposition home or self-care (01) ==
LOC: ER 16:22
DX: R42 Dizziness and giddiness (principal); R07.9 Chest pain, unspecified; R06.02 Shortness of breath; R51.9 Headache, unspecified
CPT/HCPCS: 85025; 80048; 36415; 83735; 81025; 80076; 81003; 84484; 80307; 70450; 71045; J7030; 93005